=== PATIENT | female | born 1955 | race Caucasian/White ===

== ENCOUNTER → 2017-10-23 | Outpatient (POV) | payer OTHER, SELFPAY | PROVIDERS: Visit Provider Podiatrist ==

== ENCOUNTER → 2017-12-11 08:28 | Outpatient (CLI) | payer OTHER, SELFPAY ==
--- NOTE | 2017-12-11 08:31 | MR_ITS ---
MR foot LT wo con HISTORY: Left foot pain laterally and posteriorly radiating up the ankle ORDERING PHYSICIAN: Brea Juarez DPM PATIENT AGE: 62 years COMPARISON: None TECHNIQUE: Standard multiplanar multiecho sequences are performed without contrast. FINDINGS: The exam is NOT tailored to either the forefoot or hindfoot. Resolution is therefore somewhat limited. There is mild pes planus. The tendons about the ankle and feet and ligaments are grossly unremarkable. No obvious fracture or dislocation. No bone bruise apparent. There is a small amount fluid in the ankle joint. No destructive process. There is a small calcaneal spur with no evidence of abnormal signal intensity at the calcaneal spur or plantar fascia. IMPRESSION: Small amount of fluid in the ankle joint otherwise unremarkable MRI of the foot. Somewhat limited exam as it is not tailored to the hind, mid, or forefoot. Study may be repeated at no additional charge and tailored to the appropriate anatomical region if clinically warranted.
== END ==
PROVIDERS: PCP Family Medicine; Visit Provider Podiatrist
DX: M21.42 Flat foot [pes planus] (acquired), left foot (principal)
CPT/HCPCS: 73718

== ENCOUNTER → 2018-10-15 11:05 | Outpatient (CLI) | payer OTHER, SELFPAY ==
--- NOTE | 2018-10-15 11:10 | XR_ITS ---
XR knee LT 3V HISTORY: ITS.REASON: ACUTE LT KNEE PAIN ORDERING PHYSICIAN: Jaquelin Peña PATIENT AGE: 63 years COMPARISON: None FINDINGS: No fracture or dislocation. No lytic or blastic change. Normal mineralization. No significant arthritic changes evident. No other significant findings IMPRESSION: Negative Knee
== END ==
PROVIDERS: PCP Nurse Practitioner; Visit Provider Nurse Practitioner
DX: M25.562 Pain in left knee (principal)
CPT/HCPCS: 73562

== ENCOUNTER 2021-04-29 03:58 | Inpatient (IN) | payer MEDICARE, BC, SELFPAY ==
[2021-04-29] VITALS (32 sets, daily range): BP systolic 72–124; BP diastolic 40–67; PULSE 50–90; RESP 15–24; TEMP 36.4–37.2; O2SAT 92–100; BMI 25.8; BMI 27.4
--- NOTE | 2021-04-29 | IR_ITS ---
APPROVED REPORT Patient Location: Emergent Rectification Printer: JUAN FRANCISCO Noel RT (R) PROCEDURES Left heart catheterization Left ventriculogram Selective coronary angiogram Drug-eluting stent deployment to the ostial proximal mid dominant right coronary artery Drug-eluting stent deployment to the ostial left main artery INDICATION Acute ST elevation inferior lateral posterior and right ventricular infarction, Coronary artery disease Informed consent was obtained prior to the procedure. COMPLICATIONS None Estimated Blood Loss: Less than 10 mls TECHNIQUE 1% lidocaine used anesthetize right groin the right femoral artery was accessed via the Salinger technique and a 6 Finnish sheath was placed in the right femoral artery. Therapeutic heparin was administered in the ER. A JR4 guide catheter was used to intubate the right coronary artery and a Choice PT extra-support wire was placed distally. A 3.5 mm x 38 mm resolute [place] stent was deployed at 20 raymond reducing the stenosis. At the infarct site there stent was under deployed therefore 3.75 x 12 mm noncompliant balloon was deployed on multiple occasions at 24 raymond to post dilate. Prior to the post dilatation with a 3.75 mm balloon a 3.5 x 26 mm resolute [place] stent was placed in the proximal to ostial segment and proximal to the first stent yet still overlapping the stent and deployed at 20 raymond. This balloon was advanced and deployed at 24 raymond to post dilate. After this did not fully deployed the stent then the 3.75 mm balloon was deployed as described above. The JR4 catheter was used to perform left heart catheterization left ventriculogram. After achieving MAXWELL-3 flow at the end of the procedure the apparatus was removed and a 5 Finnish JL4 catheter was used to perform left coronary angiography. A severe ostial stenosis was identified. A 6 Finnish JL4 guide catheter was then placed in the left coronary cusp and the wire placed distally in the LAD. A 3.5 x 8 mm resolute [place] stent was deployed at 24 raymond reducing the ostial stenosis to 0%. The 5 Finnish sheath cause severe dampening when inserted into the left main artery however the JL 4 6 Finnish guide catheter could not fit into the left main into the stenosis. At the end of the stent deployment the 6 Finnish JL4 easily inserted into the left main artery with no dampening and excellent flow. MAXWELL-3 flow was present before and after the procedure. At the end of the procedure the apparatus was removed the groin was reprepped closure changed sheath was removed and hemostasis was achieved using Perclose device patient was transferred to the postop holding in stable condition. The right coronary artery started with MAXWELL I flow and ended with MAXWELL-3 flow ANGIOGRAPHIC RESULTS The left main artery Has an ostial 70% stenosis The left anterior descending artery Has proximal 10% stenosis The circumflex artery Is nondominant and has an ostial 10 to 20% stenosis with remaining vessel widely patent The right coronary artery Is a large dominant vessel and has an ostial proximal 40% stenosis with an 80 and then greater than 99% stenosis. The COLLINS ventriculogram reveals Mildly reduced at 45% with inferior hypokinesis The left ventricular end-diastolic pressure [address] elevation myocardial infarction of the proximal to mid dominant right coronary Successful stenting of the ostial proximal mid dominant right coronary critical disease reduced to 0% with 2 contiguous drug-eluting stents as described above Severe stenosis of the ostial left main artery Successful stenting the ostial left main artery severe disease reduced to 0% with 1 drug-eluting stent Mildly reduced ejection fraction with regiona
--- NOTE | 2021-04-29 04:03 | ECG_ITS ---
APPROVED REPORT Exam: Resting ECG HR:51 bpm ECG Measurements Heart Rate 51 AXES SD 196 P 43 QRSd 84 QRS 60 QT 434 T 105 QTc [address] elevation, consider inferolateral injury or acute infarct ACUTE SC Consider right ventricular involvement in acute inferior infarct Abnormal ECG Electronically signed by : Krishna Corbin, 04/30/2021 08:21:35
--- NOTE | 2021-04-29 04:12 | XR_ITS ---
PROCEDURE INFORMATION: Exam: XR Chest Exam date and time: 04/29/2021 4:12 AM Age: 65 years old Clinical indication: Pain; Chest pressure; Patient HX: Stemi alert; Additional info: Cp TECHNIQUE: Imaging protocol: XR of the chest. Views: 1 view. COMPARISON: No relevant prior studies available. FINDINGS: Lungs: Unremarkable. No consolidation. Pleural spaces: Unremarkable. No pleural effusion. No pneumothorax. Heart/Mediastinum: Unremarkable. No cardiomegaly. Bones/joints: Unremarkable. IMPRESSION: No acute findings.
[2021-04-29 04:26] LABS: Basophils # 0.2 K/mm3 (0-0.2); Eosinophils # 0.1 K/mm3 (0.0-0.4); Eosinophils % 0.6 % (0.1-12.0); Hematocrit 48.2 % (37.0-47.0); Hemoglobin 16.3 g/dL (12.2-16.2); Lymphocytes # 5.6 K/mm3 (0.7-4.5); Lymphocytes % 39.2 % (10-50); Mean Corpuscular HGB Conc 33.8 g/dL (31.8-35.4); Mean Corpuscular Volume 94.5 fl (81-99); Mean Platelet Volume 10.3 fl (7.4-10.4); Monocytes # 0.6 K/mm3 (0.1-1.0); Monocytes % 4.4 % (1.7-9.3); Neutrophils # 7.8 K/mm3 (1.8-7.8); Neutrophils % 54.8 % (37.0-80.0); Platelet Count 282 K/mm3 (142-424); Red Cell Distribution Width 13.4 % (11.5-17.5); White Blood Count 14.2 K/mm3 (4.8-10.8)
[2021-04-29 04:30] LABS: Alanine Aminotransferase 53 U/L (12-78); Albumin Level 4.9 g/dl (3.5-5.0); Alkaline Phosphatase 197 U/L (38-126); Anion Gap 14.5 mEq/L (5-15); Aspartate Amino Transferase 40 U/L (14-36); Bilirubin,Direct 0.4 mg/dl (0.0-0.4); Bilirubin,Indirect 0.2 mg/dL (0.0-0.9); Bilirubin,Total 0.6 mg/dl (0.2-1.3); Bilirubin,Unconjugated 0.1 mg/dL (0.0-1.1); Blood Urea Nitrogen 16 mg/dl (7-17); Calcium 10.5 mg/dl (8.4-10.2); Carbon Dioxide 20 mmol/L (22.0-30.0); Chloride 109 mmol/L (98-107); Creatinine Clearance Estimated 68 mL/min (50-200); Estimated Glomerular Filt Rate 72 ml/min (>60); GFR (African American) 87 ML/MIN (>60); Glucose 124 mg/dl (74-100); Potassium 3.5 mmoL/L (3.5-5.1); Sodium 140 mmol/L (136-145); Total Protein,Serum 8.5 g/dl (6.3-8.2)
--- NOTE | 2021-04-29 04:35 | HMH.EDCP ---
ED Disposition Clinical Impression: ST elevation myocardial infarction (STEMI) Qualifiers: Involved coronary artery: unspecified coronary artery Qualified Code(s): I21.3 - ST elevation (STEMI) myocardial infarction of unspecified site Disposition: Admitted As Inpatient Condition on Discharge: Serious - Critical Care Critical Care Time: No Attestation: On 04/29/21, the high probability of a clinically significant, sudden or life threatening deterioration of the following system(s) required my full and direct attention, intervention and personal management. The time I documented below is in addition to time spent performing reported procedures but includes the following listed in this critical care notation. Medical Decision Making - Medical Records Medical records reviewed: Yes: I reviewed the patient's medical records. - Bay Inquiry Pt receiving controlled substance: No Vital Signs: 04/29/21 04:24 04/29/21 04:32 04/29/21 04:39 Temperature 97.6 F Temperature Source Oral Pulse Rate 51 L 53 L Pulse Rate [Apical] Pulse Rate [Bilateral Apical] Pulse Rate [Right] 56 L Respiratory Rate 18 22 Blood Pressure 100/54 L 96/56 L Blood Pressure [Right Arm] 99/62 L Blood Pressure Mean [Right Arm] 74 Blood Pressure Source Blood Pressure Source [Right Arm] Blood Pressure Position Blood Pressure Position [Right Arm] 02 Sat by Pulse Oximetry 100 Oxygen Delivery Method Room Air Oxygen Flow Rate (LPM) 04/29/21 04:46 04/29/21 05:57 04/29/21 06:00 Temperature 97.6 F 98.2 F Temperature Source Temporal Artery Scan Pulse Rate 75 75 Pulse Rate [Apical] Pulse Rate [Bilateral Apical] 71 64 Pulse Rate [Right] Respiratory Rate 24 16 18 Blood Pressure 104/56 L Blood Pressure [Right Arm] 104/40 L 85/59 L Blood Pressure Mean [Right Arm] 61 67 Blood Pressure Source Automatic Cuff Blood Pressure Source [Right Arm] Automatic Cuff Automatic Cuff Blood Pressure Position Supine Blood Pressure Position [Right Arm] Supine Supine 02 Sat by Pulse Oximetry 94 L 96 Oxygen Delivery Method Nasal Cannula Room Air Nasal Cannula Oxygen Flow Rate (LPM) 2 2 04/29/21 06:05 04/29/21 06:10 04/29/21 06:15 Temperature Temperature Source Pulse Rate Pulse Rate [Apical] Pulse Rate [Bilateral Apical] Pulse Rate [Right] 69 84 84 Respiratory Rate 18 18 18 Blood Pressure Blood Pressure [Right Arm] 96/49 L 91/66 L 91/66 L Blood Pressure Mean [Right Arm] 64 74 74 Blood Pressure Source Blood Pressure Source [Right Arm] Automatic Cuff Automatic Cuff Automatic Cuff Blood Pressure Position Blood Pressure Position [Right Arm] Supine Supine Supine 02 Sat by Pulse Oximetry 96 96 96 Oxygen Delivery Method Room Air Room Air Room Air Oxygen Flow Rate (LPM) 04/29/21 06:22 04/29/21 06:30 04/29/21 06:45 Temperature 98.1 F Temperature Source Oral Pulse Rate 90 Pulse Rate [Apical] Pulse Rate [Bilateral Apical] Pulse Rate [Right] 54 L 57 L Respiratory Rate 18 18 Blood Pressure Blood Pressure [Right Arm] 87/50 L 83/62 L Blood Pressure Mean [Right Arm] 62 69 Blood Pressure Source Blood Pressure Source [Right Arm] Automatic Cuff Automatic Cuff Blood Pressure Position Blood Pressure Position [Right Arm] Supine Supine 02 Sat by Pulse Oximetry 96 98 Oxygen Delivery Method Nasal Cannula Nasal Cannula Oxygen Flow Rate (LPM) 2 2 04/29/21 07:00 04/29/21 07:30 04/29/21 07:45 Temperature 98.4 F Temperature Source Oral Pulse Rate Pulse Rate [Apical] 52 L 50 L Pulse Rate [Bilateral Apical] Pulse Rate [Right] 54 L Respiratory Rate 16 18 16 Blood Pressure Blood Pressure [Right Arm] 91/56 L 83/55 L 83/49 L Blood Pressure Mean [Right Arm] 67 64 60 Blood Pressure Source Blood Pressure Source [Right Arm] Automatic Cuff Automatic Cuff Automatic Cuff Blood Pressure Position Blood Pressure Position [Right Arm] Supine Supine Supine
[2021-04-29 04:42] LABS: Troponin I 0.02 ng/ml (0.00-0.034)
--- NOTE | 2021-04-29 06:13 | PC.NURSE ---
patient up to floor from radiographer cardiac catheterization via stretcher.
--- NOTE | 2021-04-29 06:55 | HMH.HP ---
*Admission Date: 04/29/21 *Chief complaint: Chest pain *History of present illness: 65-year-old female presented to the emergency department after being awoken this morning with midsternal chest pain with associated nausea, diaphoresis, shortness of breath and at least one episode of vomiting. In the emergency department EKG was consistent with acute ST elevation PR. Dr. Lemus was contacted and patient was immediately taken to the Program Director/Air Personality with findings as follows: IMPRESSION Acute ST elevation myocardial infarction of the proximal to mid dominant right coronary Successful stenting of the ostial proximal mid dominant right coronary critical disease reduced to 0% with 2 contiguous drug-eluting stents as described above Severe stenosis of the ostial left main artery Successful stenting the ostial left main artery severe disease reduced to 0% with 1 drug-eluting stent Mildly reduced ejection fraction with regional wall motion abnormality Normal LVEDP PLAN 1. Brilinta 90 twice daily plus aspirin 81 mg daily 2. LDL less than 55 to be achieved with high intensity statin 3. Start LACIE inhibitors once hemodynamically stable followed by carvedilol once patient tolerates LACIE inhibitors 4. Echocardiogram in the morning 5. Monitoring on telemetry for at least 48 hours 6. Avoidance of tobacco products 7. Risk factor modification Patient is now been admitted to the [facility] floor for 48 hours of telemetry monitoring. She reports resolution of chest pain and feeling significantly better. Patient's cardiac risk factors are chronic cigarette use and early family history of coronary artery disease with her father having an PR at age 44 (he was also a smoker) [facility] History I have reviewed the patient's past medical history: Yes Medical History: Denies:: Aneurysm, Asthma, Cancer, Congestive Heart Failure, Chronic Obstructive Pulmonary Disease (COPD), Diabetes Mellitus Type 1, Diabetes Mellitus Type 2, Hyperlipidemia, Hypertension *Have you ever received a pneumonia vaccine?: No *Have you received a flu vaccine this season?: No Other Medical History: Reports: Arthritis. Denies: Fibromyalgia, Hypothyroidism, Thyroid Disease Other Surgeries: Yes: Tubal Ligation, Other (Gallbladder) Amputation: No Fractures: No - *Social History Smoking Status: Current every day smoker Tobacco Type: cigarettes # Packs/Day (cigarettes): 1 Alcohol Intake: never Alcohol Intake Frequency:: 0-2 drinks per day *Occupational Status:: unemployed *Travel in the last 8 weeks: None Family Hx:: Heart Attack, Cancer Review of Systems - Constitutional Denies body ache(s), Denies chills, Denies night sweats - Eyes Denies blurry vision - ENT Denies change in voice - *Cardiovascular Reports chest pain at rest - *Respiratory Denies change in phlegm color, Denies chest congestion, Denies cough - *Gastrointestinal Denies belching - *Genitourinary Denies painful urination - *Musculoskeletal Reports joint pain - Integumentary/Breasts Denies bleeding lesions, Denies change in hair - *Neurologic Denies abnormal hearing, Denies abnormal movements, Denies seizure-like activity - Psychiatric Denies lack of enjoyment, Denies anxiety - Endocrine Denies excessive sweating - Hematologic/Lymphatic Denies easy bruising Meds Home Medications Medication Instructions Recorded Confirmed Type meloxicam 7.5 mg tablet 2.5 mg PO ONCE 30 Days #30 tab 11/30/17 04/29/21 History Allergies Allergy/AdvReac Type Severity Reaction Status Date / Time rosuvastatin [From Crestor] Allergy Verified 04/29/21 04:26 Exam Vital signs and Labs for Last 24 Hours: Temp Pulse Resp BP Pulse Ox 98.2 F 90 18 91/66 L 96 04/29/21 05:57 04/29/21 06:22 04/29/21 06:15 04/29/21 06:15 04/29/21 06:15 Laboratory Results - last 24 hr 04/29/21 04:10: WBC 14.2 H, RBC 5.10, Hgb 16.3 H, Hct 48.2 H, MCV 94.5, MCH 32.0 H, MCHC 33.8, RDW 13.4, Plt Count 282,
--- NOTE | 2021-04-29 07:23 | P.CONPHA_ITS ---
[facility] Pharmacy VTE Monitoring - Patient Demographics Admission date: 04/29/21 Report Date: 04/29/21 Time: 07:23 Allergies/Adverse Reactions: Patient Allergies rosuvastatin [From Crestor] Allergy (Verified 04/29/21 04:26) Height: 1.73 m Weight: 82.1 kg Patient Problems: Current Active Problems ST elevation myocardial infarction (STEMI) (Acute) - VTE Risk Labs: VTE Related Lab Results Hgb 16.3 g/dL (12.2-16.2) H 04/29/21 04:10 Hct 48.2 % (37.0-47.0) H 04/29/21 04:10 Plt Count 282 K/mm3 (142-424) 04/29/21 04:10 BUN 16 mg/dl (7-17) 04/29/21 04:10 Creatinine 0.80 mg/dl (0.52-1.04) 04/29/21 04:10 Estimated Creat Clear 68 mL/min (50-200) 04/29/21 04:10 VTE Score: 3 VTE Risk Level: Low Risk - Prophylaxis VTE Prophylaxis Ordered?: Yes Types of VTE Prophylaxis: TEDS Knee High Location of Applied Device: Bilateral Lower Extremeties
--- NOTE | 2021-04-29 07:23 | HMH.PHAINT ---
MEDICATION RECONCILIATION COMPLETED ON PATIENT USING EXTERNAL FILL HISTORY FROM PHARMACY. -NETTA CARVER, CHARLOTTED
[2021-04-29 07:32] LABS: Cholesterol 281 mg/dl (140-200); Triglycerides 133 mg/dl (30-150); VLDL Cholesterol 27 mg/dL (0-40)
[2021-04-29 07:33] LABS: Chol/HDL Ratio 6.1 (1-3.5); HDL Cholesterol 46 mg/dl (40-60)
[2021-04-29 07:43] LABS: Direct LDL Cholesterol 192.65 mg/dL (100-129)
[2021-04-29 07:49] LABS: Coronavirus 19, PCR Not Detected (NotDetected); Influenza A, PCR Not Detected (NotDetected)
[2021-04-29 08:30] LABS: Influenza B, PCR Not Detected (NotDetected)
--- NOTE | 2021-04-29 08:34 | PC.NURSE ---
Pt had previously been lying flat in the bed, resting off and on. Pt is currently sitting up in the bed at a 45 degree angle and eating breakfast. BP 80/44
--- NOTE | 2021-04-29 08:57 | HMH.CNCARD ---
History of Present Illness Consult date: 04/29/21 Requesting physician: Krishna Adler Consult reason: chest pain Chief complaint: STEMI History of present illness: 65-year-old female presented to [facility] to ED early this a.m. presenting as STEMI. Patient was automatically sent to the [facility] for revascularization if warranted. Since patient was returned from having left heart catheterization through access of the left groin. Patient is stable at this time. Patient is alert and oriented x3. Patient denies chest pain, tightness or pressure. Patient states for the past few days she has been having what she would describe as indigestion. Patient states the indigestion was becoming worse to where she presented to the emergency room as a STEMI. Patient states accompanying the indigestion was worsening shortness of breath. Patient denied a cough. Patient denies fever. Patient states her shortness of breath has improved. Patient is noted to be on 2 L of O2 by nasal cannula. Patient states she does smoke half a pack of cigarettes per day and has for many years. Patient has history of hyperlipidemia. Patient does have significant family history of coronary artery disease. Patient states her father had an TX at the age of 44. Left heart catheterization performed revealed successful stenting of the ostial proximal mid dominant RCA with 2 drug-eluting stents placed. Severe stenosis of the ostial left main which required 1 drug-eluting stent. EF was noted as mildly reduced with regional wall abnormality. Will obtain echocardiogram in the a.m. to assess EF. lunchroom monitor reveals sinus bradycardia with a heart rate of [address] depression noted on the monitor. Patient does remain hypotensive at this time. Patient has been given IV fluids and a fluid bolus in which blood pressure has improved slightly. Reluctant to start LACIE inhibitor's or beta-blockers at this time due to patient being hypotensive. Once blood pressure becomes stable, will add LACIE inhibitor for BP and renal function stability. Once patient is able to tolerate LACIE inhibitor's, will add beta-melissa at that time. Please continue to monitor patient status and notify cardiology of any changes in patient status. [facility]: ANGIOGRAPHIC RESULTS (04/29/21) The left main artery Has an ostial 70% stenosis The left anterior descending artery Has proximal 10% stenosis The circumflex artery Is nondominant and has an ostial 10 to 20% stenosis with remaining vessel widely patent The right coronary artery Is a large dominant vessel and has an ostial proximal 40% stenosis with an 80 and then greater than 99% stenosis. The COLLINS ventriculogram reveals Mildly reduced at 45% with inferior hypokinesis The left ventricular end-diastolic pressure [address] elevation myocardial infarction of the proximal to mid dominant right coronary Successful stenting of the ostial proximal mid dominant right coronary critical disease reduced to 0% with 2 contiguous drug-eluting stents as described above Severe stenosis of the ostial left main artery Successful stenting the ostial left main artery severe disease reduced to 0% with 1 drug-eluting stent Mildly reduced ejection fraction with regional wall motion abnormality Normal LVEDP PLAN 1. Brilinta 90 twice daily plus aspirin 81 mg daily 2. LDL less than 55 to be achieved with high intensity statin 3. Start LACIE inhibitors once hemodynamically stable followed by carvedilol once patient tolerates LACIE inhibitors 4. Echocardiogram in the morning 5. Monitoring on telemetry for at least 48 hours 6. Avoidance of tobacco products 7. Risk factor modification Discussed plan of care with Dr. Lemus. Orders received from Dr. Lemus. Patient will need to stay inpatient for 48 hours due to STEMI. Unable at this time to start LACIE inhibitor due to patient being hypotensive. Once patient becomes hemodynamically stable a
[2021-04-29 12:58] LABS: CATHL Activated Clotting Time 234 SEC (74-125)
[2021-04-29 12:59] LABS: CATHL Activated Clotting Time 255 SEC (74-125)
--- NOTE | 2021-04-29 14:27 | PC.NURSE ---
notified Delvin Walker of pt having chest pain/discomfort. states it is similar to pain from last night, not as severe though. informed by Martha Baez that pt says pain is radiating up the side of her neck. no med orders available. pt bp is 90/56 hr mid 50's no rhythm change noted on the monitor. no new orders from [facility] at this time.
--- NOTE | 2021-04-29 18:32 | PC.NURSE ---
pt states that she is having brief episodes of discomfort. pt refuses narcotics at this time, but is agreeable to tylenol if needed.
--- NOTE | 2021-04-29 21:15 | PC.NURSE ---
DSG on right groin is C/D/I. No bruising or swelling noted at site. Sinus adrian on telemetery. She denies pain, nausea, and SOA. She has been ambulating independently to the bathroom. She continues on RA. She reported that she is a patient of Dr. Tinajero and he had prescribed her a methotraxate for arthritis and she is concerned if she should still be taking the methotrexate on Thursday and Thursday.
[2021-04-30] VITALS (13 sets, daily range): BP systolic 77–104; BP diastolic 47–69; PULSE 55–80; RESP 16–24; TEMP 36.6–37.3; O2SAT 93–100; BMI 27.4
--- NOTE | 2021-04-30 03:41 | PC.NURSE ---
Manual BP obtained r/t low BP. She is asymptomatic. Staff supervised ambulation to bathroom as a fall precaution. Her gait was steady. BP after ambulating to bathroom was 96/51.
--- NOTE | 2021-04-30 07:04 | CA_ITS ---
APPROVED REPORT EXAM: Comprehensive 2D, Doppler, and color-flow Echocardiogram Engineer Exhauster: DANICA Colon, RVS Ht: 5 ft 8 in Wt: 181lbs BSA: 1.96 BP: 91/66 mmHg Indications: CAD s/p AR with 3 coroncary stents, COPD, Smoker, Reduced EF post cath, CHF Echo Enhancing Agent Comments: Poor acoustics throughout with lung impedence 2D Dimensions IVSd 0.95 cm F: 0.6-1.0 LVEF (Visual) 66.00 % PWd 0.77 cm F: 0.6 - 1.0 LA Volume 45.70 mL LVDd 4.13 cm F: 3.9 - 5.3 LA Volume Index 23.31 mL/m2 (M/F) 16-34 LVDs 2.50 cm F: 2.2 - 3.5 Left Atrium 2.84 cm F: 2.7 - 3.8 LVOT 1.68 cm (M/F) 1.5-2.5 M-Mode Dimensions LA Diam 3.15 cm (1.9-4.0) Ao Diam 2.70 cm (2.0-3.7) EPSs 0.28 cm TAPSE 2.30 (<1.7) LV Diastology E Decel Time 240.00 (160-240 msec) E/A Ratio 1.6 MED E' 12.90 (< 7 cm/sec) MED A' 6.70 cm/s E'/MED E' Ratio 6.72 (>14) LAT E' 10.70 (<10 cm/sec) LAT A' 7.40 cm/s E/LAT E' Ratio 8.10 (>14) Aortic Valve LVOT Max 77.00 (70-110 cm/s) LVOT VTI 15.07 cm AoV Peak Miguel. 135.00 (50-130 cm/s) AO Peak GR. 7.30 mmHg AO Mean GR. 3.70 (<5 mmHg) AO VTI 26.90 (18-25 cm) TIGRE (VTI) 1.24 (2.5-4.5 cm2) Mitral Valve MV E Max Miguel. 87.00 (40-130 cm/s) MV A Velocity 55.00 (40-130 cm/s) E/A Ratio 1.58 MV Decel. Time 240.00 (160-240 ms) MV PHT 70.00 ms Pulmonary Valve PV Peak Velocity 62.00 (50-150 cm/s) Tricuspid Valve TR P. Velocity 217.00 cm/s RAP Estimate 10.00 mmHg RVSP 28.80 mmHg Left Ventricle Left atrium is normal size, left ventricle is normal size, visually estimated ejection fraction 55% with no regional wall motion abnormality, diastolic parameters are within normal range. Right Ventricle Right atrium and right ventricular qualitatively mildly enlarged with normal contractility. Aortic Valve Aortic valve is minimally thickened and fibrosed, there is no aortic stenosis or aortic insufficiency. Mitral Valve Mitral valve is grossly normal, there is trace mitral regurgitation. Tricuspid Valve Tricuspid grossly normal, there is mild tricuspid regurgitation, calculated right ventricular systolic pressure is 28 mmHg. Pulmonic Valve Pulmonic valve is poorly visualized. Great Vessels Aortic root is normal size. Pericardium No significant pericardial effusion noted. Conclusion 1. Normal left ventricular size, preserved left ventricular systolic function, visually estimated ejection fraction 55% with no regional wall motion abnormality, diastolic parameters are within normal range. 2. Mildly enlarged right ventricle with normal contractility. 3. Trace mitral and mild tricuspid regurgitation, calculated right ventricular systolic pressure is 28 mmHg. 4. No significant pericardial effusion noted. Electronically signed by : Tre Moran, 04/30/2021 08:52:20
--- NOTE | 2021-04-30 07:11 | HMH.ACPN2 ---
Internal Medicine - PN: Subj *Date: 04/30/21 *Time: 07:11 Interval history: Patient has no complaints this morning. Patient did become hypotensive yesterday evening after receiving lisinopril. Patient was asymptomatic from the hypotension with systolics in the 70s. This morning she denies lightheadedness, chest pain or shortness of breath. She does feel rather stiff from laying in bed Exam Vital signs and Labs for Last 24 Hours: Temp Pulse Resp BP Pulse Ox 99.0 F 63 15 99/63 L 95 04/29/21 20:00 04/30/21 06:00 04/29/21 20:00 04/30/21 06:00 04/30/21 06:00 Laboratory Results - last 24 hr 04/29/21 03:10: Triglycerides 133, Cholesterol 281 H, LDL Cholesterol Direct 192.65 H, VLDL Cholesterol 27, HDL Cholesterol 46, Cholesterol/HDL Ratio 6.1 H 04/29/21 05:14: Activated Clotting Time 255 H* 04/29/21 05:26: Activated Clotting Time 234 H* I & O for Last 24 hours: Intake & Output 04/27/21 04/28/21 04/29/21 04/30/21 11:59 11:59 11:59 11:59 Intake Total 2120 / 2120 610 / 610 Balance 2120 / 2120 610 / 610 Weight 181 lb 180 lb 15.992 oz - Constitutional no acute distress - *Routine Respiratory Exam Present: CTA bilaterally - *Routine Cardiovascular Exam Present: RRR Assessment and Plan (1) ST elevation myocardial infarction (STEMI) Status: Acute Qualifiers: Involved coronary artery: unspecified coronary artery Qualified Code(s): I21.3 - ST elevation (STEMI) myocardial infarction of unspecified site Category: Medical Code(s): I21.3 - ST elevation (STEMI) myocardial infarction of unspecified site - Assessment and plan all Dx Assessment and Plan for all problems:: Patient is undergoing echocardiogram this morning. Continue dual antiplatelet therapy, statin and LACIE inhibitor as tolerated.
--- NOTE | 2021-04-30 09:05 | HMH.PNCARD ---
Subjective Date: 04/30/21 Time: 09:00 Principal diagnosis: STEMI Interval history: 65-year-old female had presented to [facility] with STEMI 1 day ago. Patient underwent heart catheterization which revealed successful stenting of the ostial proximal mid dominant RCA with 2 drug-eluting stents placed. Severe stenosis of the ostial left main which required 1 drug-eluting stent. EF was noted as mildly reduced with regional wall abnormality. Patient is stable at this time. Patient is alert and oriented x3. Patient denies chest pain, tightness or pressure. Patient denied a cough. Patient denies fever. Patient states her shortness of breath has improved. Patient is noted to be on 2 L of O2 by nasal cannula. classroom monitor reveals sinus bradycardia with a heart rate of [address] depression noted on the monitor. Patient does remain hypotensive at this time but is improving. Lisinopril 5 mg p.o. twice daily was initiated last evening. Patient did have episode early this a.m. with hypotension. Reluctant to start patient on carvedilol at this time due to patient remaining hypotensive. When patient BP can tolerate the LACIE inhibitor, will try to initiate carvedilol. Cath site right groin access noted with no swelling or drainage. Patient denies pain at the cath site. Echocardiogram was performed this a.m. Preliminary echocardiogram revealed EF 50 to 55% with trace of MR and TR noted. Waiting official echocardiogram results. Discussed plan of care with Dr. Lemus. Orders received from Dr. Lemus. Will decrease lisinopril 5 mg twice daily to lisinopril 2.5 mg twice daily to help stabilize blood pressure. We will hold starting carvedilol at this time due to the instability of the blood pressure. Please notify cardiology of any changes in patient status. Thank you for allowing cardiology to participate in the care of this patient. Exam Vital signs and Labs for Last 24 Hours: Temp Pulse Resp BP Pulse Ox 99.0 F 63 15 99/63 L 95 04/29/21 20:00 04/30/21 06:00 04/29/21 20:00 04/30/21 06:00 04/30/21 06:00 Laboratory Results - last 24 hr 04/29/21 05:14: Activated Clotting Time 255 H* 04/29/21 05:26: Activated Clotting Time 234 H* I & O for Last 24 hours: Intake & Output 04/27/21 04/28/21 04/29/21 04/30/21 23:59 23:59 23:59 23:59 Intake Total 2720 / 2720 Balance 2720 / 2720 Weight 181 lb 180 lb 15.992 oz - Constitutional no acute distress, average body habitus, cooperative - *Routine HEENT Exam Head: Present: normocephalic ENT: Present: mucous membranes moist - *Routine Neck Exam Present: supple, full ROM, normal carotid upstroke. Absent: JVD, carotid bruit, lymphadenopathy - *Routine Respiratory Exam Present: accessory muscle use, CTA bilaterally. Absent: wheezes, crackles - *Routine Cardiovascular Exam Present: RRR, Normal S1, Normal S2 - *Routine Abdominal Exam Present: soft, normoactive bowel sounds. Absent: distended - *Routine Extremities Exam Present: full ROM, pulses intact, normal capillary refill. Absent: edema - *Routine Skin Exam Present: intact, dry, warm - *Routine Neurological Exam Present: alert, oriented X3, moving all extremities, normal speech - Routine Psychiatric Exam Present: normal affect, normal thought process Progress Note: A&P (1) ST elevation myocardial infarction (STEMI) Status: Acute Assessment and Plan for All Diagnoses:: Plan: 1. Patient presented to the ED as STEMI. Patient underwent emergent left heart catheterization. Left heart catheterization revealed stenting to the RCA and left main. Patient was started on dual antiplatelet therapy. Brilinta and aspirin. Patient remains hypotensive at this time. Denies chest pain, tightness or pressure. Lisinopril 5 mg p.o. twice daily was initiated last evening. Patient did have an episode of hypotension earlier this a.m. Due to patien
--- NOTE | 2021-04-30 18:00 | PC.NURSE ---
SHE IS AOX4, ABLE TO MAKE NEEDS KNOWN TO STAFF, DSG REMAINS IN PLACE TO R GROIN SITE. NO DRAINAGE OR HEMATOMA NOTED, PT DENIES PAIN AND N/V/D. SHE HAS AMBULATED TO RESTROOM WITHOUT DIFFICULTY. DOES NOT REQUIRE O2 SUPPORT, LUNGS ARE CTA HAS NOT C/O CHEST PAIN, PT WAS NOTED TO HAVE ASYMPTOMATIC HYPOTENSION EARLIER IN SHIFT BUT HAS SINCE IMPROVED, NO NEEDS AT THIS TIME.
[2021-05-01] VITALS: BP 110/71; PULSE 55; PULSE 77; RESP 16; TEMP 37.3; O2SAT 98
[2021-05-01 03:57] VITALS: BP 110/68; PULSE 78; RESP 16; TEMP 37.7; O2SAT 97
[2021-05-01 04:00] VITALS: PULSE 74
--- NOTE | 2021-05-01 04:02 | PC.NURSE ---
Pt is A/O x4. Pt slept well this shift. no acute changes. Room air, IV's are patent in the L/R AC's. Patient has ran a low fever whole shift at beginning of shift offered Tylenol, pt declined. At 04:00 vitals pt requested 1 Tylenol, admin per JAN. Pt dressing in R groin site is C/D/I. No drainage or hematoma present. Lung sounds CTA. Pt's declines any pain. Call light within reach, pt is able to make needs known to staff. No concerns at this time.
[2021-05-01 05:16] VITALS: BMI 27.1
--- NOTE | 2021-05-01 07:10 | HMH.ACPN2 ---
Internal Medicine - PN: Subj *Date: 05/01/21 *Time: 07:10 Interval history: Patient reports feeling hot and cold all night. Nursing staff reports low-grade elevation in temperature to 99 9. Patient denies specific symptoms however. She has not had any shortness of breath especially with ambulation. She has had some urinary frequency which she claims is not unusual. She denies dysuria. Exam Vital signs and Labs for Last 24 Hours: Temp Pulse Resp BP Pulse Ox 99.9 F H 74 16 110/68 97 05/01/21 03:57 05/01/21 04:00 05/01/21 03:57 05/01/21 03:57 05/01/21 03:57 I & O for Last 24 hours: Intake & Output 04/28/21 04/29/21 04/30/21 05/01/21 11:59 11:59 11:59 11:59 Intake Total 2120 / 2120 1090 / 1090 600 / 600 Output Total 2 / 2 3 / 3 Balance 2120 / 2120 1088 / 1088 597 / 597 Weight 181 lb 180 lb 15.992 oz 179 lb 8 oz Narrative: Patient looks comfortable. Oropharynx is moist and clear. Neck is supple. Lungs have basilar rales that clear with deep breathing consistent with atelectasis. Heart has a regular rate and rhythm. Abdomen is soft. There is no suprapubic tenderness. Skin is without rashes Assessment and Plan (1) ST elevation myocardial infarction (STEMI) Status: Acute Qualifiers: Involved coronary artery: unspecified coronary artery Qualified Code(s): I21.3 - ST elevation (STEMI) myocardial infarction of unspecified site Category: Medical Code(s): I21.3 - ST elevation (STEMI) myocardial infarction of unspecified site (2) Cigarette smoker Status: Acute Category: Social Hx Code(s): F17.210 - Nicotine dependence, cigarettes, uncomplicated - Assessment and plan all Dx Assessment and Plan for all problems:: 1. Urinalysis this morning for patient's urinary frequency and low-grade elevation in temperature. Once urinalysis is resulted decision will be made whether patient would need antibiotic. 2. Plan for discharge home later in the day
[2021-05-01 07:45] LABS: Microscopic, Urine URINE MICROSCOPIC (MICROSCOPIC)
--- NOTE | 2021-05-01 07:52 | HMH.PNCARD ---
Subjective Date: 05/01/21 Time: 07:45 Principal diagnosis: STEMI Interval history: 65-year-old female had presented to [facility] with STEMI 2 days ago. Patient underwent heart catheterization which revealed successful stenting of the ostial proximal mid dominant RCA with 2 drug-eluting stents placed. Severe stenosis of the ostial left main which required 1 drug-eluting stent. Echocardiogram was performed yesterday which revealed EF 55% with no regional wall motion abnormality. Trace mitral and mild tricuspid regurgitation with noted right ventricular systolic pressure of 28 mmHg. Patient is alert and oriented x3. Patient denies chest pain, tightness or pressure. Patient denied a cough. Patient denies shortness of breath. Nursing staff stated overnight patient did have a low-grade temp. PCP is evaluating for possible causes. computer aided design designer reveals sinus rhythm. ST depression noted on the monitor. Patient does remain hypotensive at this time but is improving. Patient is currently on lisinopril 2.5 mg p.o. daily and is tolerating at this time. Reluctant to start patient on carvedilol at this time due to patient remaining hypotensive. When patient BP can tolerate the LACIE inhibitor, will try to initiate carvedilol. Cath site right groin access noted with no swelling or drainage. Patient denies pain at the cath site. Discussed plan of care with Dr. Lemus. Orders received from Dr. Lemus. Patient may be discharged today. Patient will need continued lisinopril 2.5 mg p.o. twice daily. Patient will need to continue Brilinta and baby aspirin as indicated for CAD and post stenting. No strenuous activity or heavy lifting until follow-up with cardiology. Recommend cardiac rehabilitation to increase stamina and due to postop stenting. Advised patient to stop smoking. Patient does have history of hyperlipidemia. Patient will need to continue statin therapy. Patient is to follow-up with cardiology in 1 week or sooner if signs and symptoms develop or persist. At cardiology follow-up, we will discuss starting beta-melissa at that time, if patient is tolerating LACIE inhibitor. Echo:Conclusion 1. Normal left ventricular size, preserved left ventricular systolic function, visually estimated ejection fraction 55% with no regional wall motion abnormality, diastolic parameters are within normal range. 2. Mildly enlarged right ventricle with normal contractility. 3. Trace mitral and mild tricuspid regurgitation, calculated right ventricular systolic pressure is 28 mmHg. 4. No significant pericardial effusion noted. Thank you for allowing cardiology to participate in the care of this patient. Exam Vital signs and Labs for Last 24 Hours: Temp Pulse Resp BP Pulse Ox 99.9 F H 74 16 110/68 97 05/01/21 03:57 05/01/21 04:00 05/01/21 03:57 05/01/21 03:57 05/01/21 03:57 I & O for Last 24 hours: Intake & Output 04/28/21 04/29/21 04/30/21 05/01/21 23:59 23:59 23:59 23:59 Intake Total 2720 / 2720 1090 / 1090 Output Total 5 / 5 Balance 2720 / 2720 1085 / 1085 Weight 181 lb 180 lb 15.992 oz 179 lb 8 oz - Constitutional no acute distress, average body habitus, cooperative - *Routine HEENT Exam Head: Present: normocephalic ENT: Present: mucous membranes moist - *Routine Neck Exam Present: supple, full ROM, normal carotid upstroke. Absent: JVD, carotid bruit, lymphadenopathy - *Routine Respiratory Exam Present: CTA bilaterally. Absent: wheezes, crackles - *Routine Cardiovascular Exam Present: RRR, Normal S1, Normal S2. Absent: murmur - *Routine Abdominal Exam Present: soft, normoactive bowel sounds. Absent: distended, firm - *Routine Extremities Exam Present: full ROM, pulses intact, normal capillary refill. Absent: edema - *Routine Skin Exam Present: intact, dry, warm. Absent: erythema - *Routine Neurological Exam Present: alert, oriented
[2021-05-01 07:53] LABS: Basophils # 0.1 K/mm3 (0-0.2); Basophils % 0.4 % (0.1-2.0); Eosinophils # 0.2 K/mm3 (0.0-0.4); Eosinophils % 1.3 % (0.1-12.0); Hematocrit 41.2 % (37.0-47.0); Hemoglobin 14.7 g/dL (12.2-16.2); Lymphocytes # 2.4 K/mm3 (0.7-4.5); Lymphocytes % 18.4 % (10-50); Mean Corpuscular HGB Conc 35.6 g/dL (31.8-35.4); Mean Corpuscular Hemoglobin 32.4 pg (27.0-31.2); Mean Corpuscular Volume 91.1 fl (81-99); Mean Platelet Volume 9.8 fl (7.4-10.4); Monocytes # 0.4 K/mm3 (0.1-1.0); Monocytes % 3.2 % (1.7-9.3); Neutrophils # 9.9 K/mm3 (1.8-7.8); Neutrophils % 76.7 % (37.0-80.0); Platelet Count 193 K/mm3 (142-424); Red Blood Count 4.52 M/mm3 (4.20-5.40); Red Cell Distribution Width 13.7 % (11.5-17.5)
[2021-05-01 08:00] VITALS: BP 100/58; PULSE 72; PULSE 77; RESP 18; TEMP 36.7; O2SAT 95
[2021-05-01 08:07] LABS: Appearance,Urine CLEAR (Clear); Bilirubin,Urine Negative (Negative); Blood, Urine Negative (Negative); Color,Urine YELLOW (Yellow); Glucose,Urine (UA) Negative (Negative); Ketones,Urine Negative (Negative); Leukocyte Esterase,Urine Negative (Negative); Nitrate,Urine Negative (Negative); PH,Urine 6.5 (5.0-8.5); Protein,Urine Negative (Negative); Urobilinogen,Urine 0.2 EU/dl (0.2)
[2021-05-01 08:16] LABS: Troponin I 3.32 ng/ml (0.00-0.034)
[2021-05-01 08:19] LABS: Bacteria,Urine Trace /lpf; WBC,Urine Occasional #/hpf (0-3)
--- NOTE | 2021-05-01 08:51 | XR_ITS ---
PROCEDURE: XR CHEST 2V CLINICAL HISTORY: elevated wbc COMPARISON: CR XR CHEST PORTABLE from 04/29/2021 FINDINGS: The cardiomediastinal silhouette and pulmonary vascularity are within normal limits. The lungs are clear without infiltrates, suspicious nodules, or pleural effusions. No acute bony abnormalities. IMPRESSION: No acute findings. Dictated by: Yong Stephenson MD 05/01/2021 09:12 Yong Stephenson MD in OV 05/01/2021 09:12
--- NOTE | 2021-05-14 14:45 | HMH.DCSUM ---
General - General Admission date:: 04/29/21 Discharge date: 05/01/21 HPI HPI: 65-year-old female presented to the emergency department after being awoken this morning with midsternal chest pain with associated nausea, diaphoresis, shortness of breath and at least one episode of vomiting. In the emergency department EKG was consistent with acute ST elevation [place]. Dr. Lemus was contacted and patient was immediately taken to the English Professor with findings as follows: IMPRESSION Acute ST elevation myocardial infarction of the proximal to mid dominant right coronary Successful stenting of the ostial proximal mid dominant right coronary critical disease reduced to 0% with 2 contiguous drug-eluting stents as described above Severe stenosis of the ostial left main artery Successful stenting the ostial left main artery severe disease reduced to 0% with 1 drug-eluting stent Mildly reduced ejection fraction with regional wall motion abnormality Normal LVEDP PLAN 1. Brilinta 90 twice daily plus aspirin 81 mg daily 2. LDL less than 55 to be achieved with high intensity statin 3. Start LACIE inhibitors once hemodynamically stable followed by carvedilol once patient tolerates LACIE inhibitors 4. Echocardiogram in the morning 5. Monitoring on telemetry for at least 48 hours 6. Avoidance of tobacco products 7. Risk factor modification Patient is now been admitted to the [facility] floor for 48 hours of telemetry monitoring. She reports resolution of chest pain and feeling significantly better. Patient's cardiac risk factors are chronic cigarette use and early family history of coronary artery disease with her father having an WV at age 44 (he was also a smoker) Hospital Course Hospital Course: Patient was admitted for 48 hours after intervention for STEMI. Patient blood pressure was low prohibiting use of standard of care meds post [place]. There were no arrhythmias. Patient was able to ambulate independently. After 48 hours of observation patient was discharged home Objective Vital signs: Temp Pulse Resp BP Pulse Ox 98.1 F 77 18 100/58 L 95 05/01/21 08:00 05/01/21 08:00 05/01/21 08:00 05/01/21 08:00 05/01/21 08:00 DS: Diagnosis - Discharge Diagnosis (1) ST elevation myocardial infarction (STEMI) Status: Acute (2) Cigarette smoker Status: Acute Discharge Plan - Patient Discharge Instructions ACTIVITY: Continue current activity DIET: continue same diet Patient Instructions: DI for Heart Attack, Tips to Help You Stop Smoking, DI for Cardiac Catheterization, DI for Surgical Site Infection, Quitting Smoking After a Heart Attack, How to Quit Smoking - Follow up Plan Follow up with: Daya Tinajero MD [Primary Care Provider] - 05/08/21 1:45 pm Pierre Lemus MD [Staff Physician] - 05/08/21 10:00 am Disposition: Home, Self-Care Condition at discharge:: Improved Home Medications: Home Medications Medication Instructions Recorded Confirmed Type Aspirin [Aspirin 81mg EC Tab] 81 mg PO DAILY #30 tablet. 05/01/21 05/08/21 Rx lisinopriL [Zestril 5mg 5 mg PO BID #60 tab 05/01/21 05/08/21 Rx Tablet] clopidogrel 75 mg tablet 75 mg PO DAILY #30 tab 05/08/21 05/08/21 Rx Prescriptions/Medication Reconciliation: New Aspirin [Aspirin 81mg EC Tab] 81 mg PO DAILY #30 tablet. lisinopriL [Zestril 5mg Tablet] 5 mg PO BID #60 tab No Action clopidogrel 75 mg tablet 75 mg PO DAILY #30 tab - Problem Reconciliation Problems Reviewed?: Yes
== END 2021-05-01 11:45 | disposition home or self-care (01) | DRG 247 ==
LOC: ER 04:16 → 2ND 04:44 → ER 10:26 → CATHLAB 10:27 → 2ND 10:38
PROVIDERS: Internal Medicine; Admitting Provider Emergency Medicine; Emergency Provider Emergency Medicine; PCP Family Medicine; Visit Provider Family Medicine
PROC: 027136Z Dilation of Coronary Artery, Two Arteries with Three Drug-eluting Intraluminal Devices, Percutaneous Approach (ICD-10-PCS; principal; 2021-04-29 04:30)
DX: I21.11 ST elevation (STEMI) myocardial infarction involving right coronary artery (principal); I25.10 Atherosclerotic heart disease of native coronary artery without angina pectoris; F17.210 Nicotine dependence, cigarettes, uncomplicated; Z82.41 Family history of sudden cardiac death; Z88.8 Allergy status to other drugs, medicaments and biological substances; E78.5 Hyperlipidemia, unspecified; I10 Essential (primary) hypertension; Z71.6 Tobacco abuse counseling
CPT/HCPCS: 36415; 71045; 71046; 80048; 80061; 80076; 81001; 84484; 85025; 85347; 92928; 92941; 93005; 93306; 93458; 96365; 96375; 96376; 99152; 99153; 99284; C1725; C1760; C1769; C1876; C9600; C9606; J1644; Q9967; U0003

== ENCOUNTER → 2021-05-08 09:36 | Outpatient (CLI) | payer MEDICARE, BC, SELFPAY ==
[2021-05-08 09:52] LABS: Hematocrit 46.3 % (37.0-47.0); Hemoglobin 15.9 g/dL (12.2-16.2)
[2021-05-08 10:03] LABS: Blood Urea Nitrogen 14 mg/dl (7-17); Estimated Glomerular Filt Rate 84 ml/min (>60); GFR (African American) 102 ML/MIN (>60)
[2021-05-08 10:49] LABS: C-Reactive Protein 2.6 mg/L (0-4)
[2021-05-08 15:05] LABS: Erythrocyte Sedimentation Rate 20 mm/hr (0-30)
== END ==
PROVIDERS: Nurse Practitioner Family; Visit Provider Internal Medicine
DX: F17.200 Nicotine dependence, unspecified, uncomplicated (principal); I21.3 ST elevation (STEMI) myocardial infarction of unspecified site; I25.118 Atherosclerotic heart disease of native coronary artery with other forms of angina pectoris; R06.00 Dyspnea, unspecified; R07.89 Other chest pain
CPT/HCPCS: 36415; 82565; 84520; 85014; 85018; 85651; 86140

== ENCOUNTER → 2021-05-13 14:17 | Outpatient (CLI) | payer MEDICARE, BC, SELFPAY ==
--- NOTE | 2021-05-13 14:19 | US_ITS ---
APPROVED REPORT Exam Type: Ankle to Brachial Index Tattoo Artist: CRISPIN/PURVI Indications History of Smoking CAD Recent cardiac stenting Pressures/Indices Right Indices Left Indices Brachial 119.00 mmHg Brachial 115.00 mmHg Low Thigh 137.00 mmHg 1.15 Low Thigh 133.00 mmHg 1.12 Calf 125.00 mmHg 1.05 Calf 123.00 mmHg 1.03 Ankle(PT) 109.00 mmHg 0.92 Ankle(PT) 112.00 mmHg 0.94 Ankle(DP) 109.00 mmHg 0.92 Ankle(DP) 123.00 mmHg 1.03 Digit 78.00 mmHg 0.66 Digit 81.00 mmHg 0.68 Findings RT MIKE=0.92 LT MIKE=1.03 RT TPI=0.66 LT TPI=0.68 Conclusion RT MIKE=0.92 LT MIKE=1.03 RT TPI=0.66 LT TPI=0.68 Normal appearing resting noninvasive lower extremity arterial study. Electronically signed by : Joe Ruiz MD 05/13/2021 17:09:13
== END ==
PROVIDERS: PCP Internal Medicine Adolescent Medicine; Visit Provider Nurse Practitioner Family
DX: I70.213 Atherosclerosis of native arteries of extremities with intermittent claudication, bilateral legs (principal)
CPT/HCPCS: 93923

== ENCOUNTER → 2021-05-14 16:27 | Outpatient (CLI) | payer MEDICARE, BC, SELFPAY ==
[2021-05-14 19:23] LABS: Hemoglobin A1C 5.4 % (4.0-6.0)
== END ==
PROVIDERS: Visit Provider Nurse Practitioner Family
DX: R73.9 Hyperglycemia, unspecified (principal)
CPT/HCPCS: 36415; 83036

== ENCOUNTER 2021-05-23 09:58 | Outpatient (RCR) | payer MEDICARE, BC, SELFPAY | END 2021-09-25 10:36 | disposition home or self-care (01) | LOC: PT 09:58 | PROVIDERS: Visit Provider Internal Medicine | DX: Z95.5 Presence of coronary angioplasty implant and graft (principal); I25.10 Atherosclerotic heart disease of native coronary artery without angina pectoris | CPT/HCPCS: 93798 ==

== ENCOUNTER → 2021-08-16 07:56 | Outpatient (CLI) | payer MEDICARE, BC, SELFPAY ==
[2021-08-16 09:08] LABS: Alanine Aminotransferase 24 U/L (12-78); Albumin Level 4.3 g/dl (3.5-5.0); Alkaline Phosphatase 141 U/L (38-126); Aspartate Amino Transferase 28 U/L (14-36); Bilirubin,Direct 0.2 mg/dl (0.0-0.4); Bilirubin,Indirect 0.3 mg/dL (0.0-0.9); Bilirubin,Total 0.5 mg/dl (0.2-1.3); Bilirubin,Unconjugated 0.4 mg/dL (0.0-1.1); Chol/HDL Ratio 5.5 (1-3.5); Cholesterol 276 mg/dl (140-200); HDL Cholesterol 50 mg/dl (40-60); Total Protein,Serum 7.6 g/dl (6.3-8.2); Triglycerides 175 mg/dl (30-150); VLDL Cholesterol 35 mg/dL (0-40)
[2021-08-16 09:20] LABS: Direct LDL Cholesterol 179.16 mg/dL (100-129)
== END ==
PROVIDERS: Visit Provider Physician Assistant
DX: I11.9 Hypertensive heart disease without heart failure (principal); E11.9 Type 2 diabetes mellitus without complications
CPT/HCPCS: 36415; 80061; 80076

== ENCOUNTER → 2021-10-24 06:14 | Outpatient (CLI) | payer MEDICARE, BC, SELFPAY ==
--- NOTE | 2021-10-24 06:15 | NM_ITS ---
APPROVED REPORT Exam: Nuclear Stress Test Indication: chest pain..short of breath..fatigue Patient Location: Outpatient Stress Tech: Xochitl Baum [place] Tech:Teressa Kaufman JUAN FRANCISCO RT(R)(N) Ht: 5 ft 8 in Wt: 185 lbs Bra Size: 40b HR: 79 bpm BP: 129/83 mmHg BSA: 1.98 m2 BMI: 28.1 History: chest pain..short of breath..fatigue Procedure: Patient received a 0.4 mg of intravenous Lexiscan, resting heart rate 79 bpm, resting blood pressure 129/83 mmHg, with Lexiscan maximum heart rate achived was 113 bpm which is Less than 85 % of the maximum predicted heart rate and blood pressure was 149/89 mmHg. With Lexiscan, patient denied any complaint of chest pain. Electrocardiogram Resting electrocardiogram showed sinus rhythm, with Lexiscan there is less than 1.[address] segment depression noted from the baseline EKG. The EKG portion of the Lexiscan is nondiagnostic. Cardiac Stress and Resting SPECT Images: Cardiac Stress and Resting SPECT images were obtained using technetium 99m Myoview 30.0 mCi stress and 10.24 mCi at rest. Gated SPECT for analysis of segmental wall motion and calculation of the ejection fraction also done. Prone images were also obtained. Cardiac stress and resting SPECT images show uniform myocardial activity without segmental perfusion abnormality, computer derived ejection fraction is over 65% with no regional wall motion abnormality, right ventricle is normal size and contractility. The transient ischemic dilatation reported in the study appears to be inaccurate Conclusion: 1. The EKG portion of the Lexiscan Myoview is nondiagnostic. 2. No scintigraphic evidence of reversible ischemia seen, computer derived ejection fraction is over 65% with no regional wall motion abnormality, right ventricle is normal size and contractility. The transient ischemic dilatation reported in the study appears to be inaccurate. 3. Likely normal Lexiscan Myoview study. Electronically signed by : Tre Moran MD 10/25/2021 09:13:09
--- NOTE | 2021-10-24 06:15 | CA_ITS ---
APPROVED REPORT Exam: Pharmacologic Technologist: Xochitl Baum, Ht: 5 ft 9 in Wt: 188 lbs BSA: 2.01 m2 HR: 79 bpm BP: 129/83 mmHg Rhythm: NSR, LOW VOLTAGE QRS, INFERIOR I WAVE ABNS Medical History Medical History: HTN, , Hyperlipidemia Medications: Aspirin,,,,, Plavix,,,,, Toprol XL,,,,, Furosemide,,,,, Allergies: ROSUVASTATIN, ATORVASTATIN, PITAVASTIN, EVOLOCUMAB Cardiac Risk Factors: HTN, Hyperlipidemia, FHX of CAD, Smoking Stress Test Details Test: LEXISCAN Reversal agent Aminophyline 100.0 mg, given intravenously for dyspnea. HR Resting HR: 85 bpm Max Heart Rate (APMHR): 154.367784 bpm Max HR Achieved: 118 bpm Target HR (85% APMHR): 130.130460 bpm % of APMHR: 76.62 Recovery HR: 83 bpm BP Resting BP: 129/83 mmHg Max BP: 149/89 mmHg Recovery BP: 147.0/92.0 mmHg ECG Resting ECG: NSR, LOW VOLTAGE QRS, INFERIOR I WAVE ABNS Clinical Exercise duration: 04:01 min Highest Stage Achieved: Exercise capacity: 1.0 METs Stress ECG Conclusion PT HAD SOA, MALAISE, AND HAD LEG HEAVINESS. NON DIAGNOSTIC LEXISCAN STRESS. MYOVIEW IMAGES REPORTED SEPARATELY. Test Summary REST 02:56 . . 85 . 129/ 83 . . Stage 1 01:00 . . 116 . . . . Stage 2 01:00 . . 112 . 149/ 89 . . Stage 3 01:00 . . 105 . 137/ 78 . . Stage 4 01:00 . . 103 . 141/ 84 . . Stage 4 01:01 . . 102 . 141/ 84 . Stop exercise at 04:01 RECOVERY 01:00 . . 97 . . . . RECOVERY 02:00 . . 92 . . . . RECOVERY 03:00 . . 87 . 141/ 89 . . RECOVERY 04:00 . . 92 . 141/ 89 . . RECOVERY 05:00 . . 85 . 147/ 92 . . RECOVERY 05:17 . . 88 . 147/ 92 . . Electronically signed by : Tre Moran MD 10/25/2021 08:49:31
== END ==
PROVIDERS: PCP Internal Medicine Adolescent Medicine; Visit Provider Nurse Practitioner Family
DX: E78.2 Mixed hyperlipidemia (principal); F17.200 Nicotine dependence, unspecified, uncomplicated; I25.10 Atherosclerotic heart disease of native coronary artery without angina pectoris; R06.00 Dyspnea, unspecified; R07.9 Chest pain, unspecified; R00.2 Palpitations
CPT/HCPCS: 78452; 93017; 93270; A9502; J0280; J2785

== ENCOUNTER → 2022-02-21 10:28 | Outpatient (CLI) | payer MEDICARE, BC, SELFPAY ==
--- NOTE | 2022-02-21 10:34 | XR_ITS ---
FINAL REPORT CLINICAL HISTORY: BILATERAL shoulder pain FINDINGS: LEFT SHOULDER Three views demonstrate no acute fracture or dislocation. There is mild AC joint degenerative change. The visualized bony structures are well aligned. No soft tissue abnormality is seen. IMPRESSION: No acute process. Reviewed, Interpreted and Dictated by Phil Bocanegra III, MD Transcribed by Margaret Patel Authenticated by Phil Bocanegra III, MD on 02/21/2022 11:34:[address] [facility]
--- NOTE | 2022-02-21 10:34 | XR_ITS ---
FINAL REPORT CLINICAL HISTORY: BILATERAL shoulder pain FINDINGS: RIGHT SHOULDER Three views demonstrate no acute fracture or dislocation. There is mild AC joint degenerative change. The visualized bony structures are well aligned. No soft tissue abnormality is seen. IMPRESSION: No acute process. Reviewed, Interpreted and Dictated by Phil Bocanegra III, MD Transcribed by Margaret Patel Authenticated by Phil Bocanegra III, MD on 02/21/2022 11:34:[address] [facility]
== END ==
PROVIDERS: PCP Internal Medicine Adolescent Medicine; Visit Provider Orthopaedic Surgery
DX: M25.511 Pain in right shoulder (principal); M25.512 Pain in left shoulder
CPT/HCPCS: 73030

== ENCOUNTER → 2022-03-19 08:54 | Outpatient (CLI) | payer MEDICARE, BC, SELFPAY ==
--- NOTE | 2022-03-19 09:04 | XR_ITS ---
FINAL REPORT CLINICAL HISTORY: chronic knee pain, NKI COMPARISON: October 15, 2018 FINDINGS: Four views of the left knee were obtained. There is no acute fracture or dislocation. There are moderate and severe degenerative changes. There is severe lateral compartment joint space narrowing. There are subchondral cyst or osteochondral lesions in the lateral femoral condyle and lateral tibial plateau. There is a small joint effusion. IMPRESSION: Moderate and severe degenerative changes, significantly progressed since prior. Reviewed, Interpreted and Dictated by Phil Bocanegra III, MD Transcribed by Nirav Sweeney Authenticated by Phil Bocanegra III, MD on 03/19/2022 10:34:19 AM [facility]
== END ==
PROVIDERS: PCP Nurse Practitioner Family; Visit Provider Orthopaedic Surgery
DX: M25.562 Pain in left knee (principal)
CPT/HCPCS: 73564

== ENCOUNTER → 2022-05-30 08:49 | Outpatient (CLI) | payer MEDICARE, BC, SELFPAY ==
--- NOTE | 2022-05-30 08:53 | XR_ITS ---
FINAL REPORT CLINICAL HISTORY: knee pain FINDINGS: RIGHT KNEE Three views were obtained. There is no acute fracture or dislocation. The joint spaces appear normal. No soft tissue abnormality is identified. IMPRESSION: No acute process. Reviewed, Interpreted and Dictated by Adonay Haque MD Transcribed by Margaret Patel Authenticated and [facility][1]
== END ==
PROVIDERS: PCP Nurse Practitioner Family; Visit Provider Orthopaedic Surgery
DX: M25.561 Pain in right knee (principal)
CPT/HCPCS: 73562

== ENCOUNTER → 2022-08-11 08:47 | Outpatient (CLI) | payer MEDICARE, BC, SELFPAY ==
[2022-08-11 09:19] LABS: Basophils # 0.1 K/mm3 (0-0.2); Basophils % 1.5 % (0.1-2.0); Eosinophils # 0.1 K/mm3 (0.0-0.4); Eosinophils % 1.3 % (0.1-12.0); Hematocrit 48.8 % (37.0-47.0); Hemoglobin 15.9 g/dL (12.2-16.2); Lymphocytes # 2.7 K/mm3 (0.7-4.5); Mean Corpuscular HGB Conc 32.6 g/dL (31.8-35.4); Mean Corpuscular Hemoglobin 31.8 pg (27.0-31.2); Mean Corpuscular Volume 97.5 fl (81-99); Monocytes # 0.4 K/mm3 (0.1-1.0); Monocytes % 5.1 % (1.7-9.3); Neutrophils # 4.7 K/mm3 (1.8-7.8); Neutrophils % 58.1 % (37.0-80.0); Platelet Count 258 K/mm3 (142-424); Red Cell Distribution Width 13.1 % (11.5-17.5)
[2022-08-11 09:37] LABS: Chloride 106 mmol/L (98-107); Potassium 4.9 mmoL/L (3.5-5.1); Sodium 142 mmol/L (136-145)
[2022-08-11 09:39] LABS: Alanine Aminotransferase 36 U/L (12-78); Aspartate Amino Transferase 40 U/L (14-36); Bilirubin,Unconjugated 0.5 mg/dL (0.0-1.1); Blood Urea Nitrogen 11 mg/dl (7-17); Estimated Glomerular Filt Rate 123 ml/min (>60); GFR (African American) 149 ML/MIN (>60)
[2022-08-11 09:40] LABS: Albumin Level 4.3 g/dl (3.5-5.0); Alkaline Phosphatase 166 U/L (38-126); Anion Gap 15.9 mEq/L (5-15); Bilirubin,Indirect 0.5 mg/dL (0.0-0.9); Bilirubin,Total 0.5 mg/dl (0.2-1.3); Calcium 9.4 mg/dl (8.4-10.2); Carbon Dioxide 25 mmol/L (22.0-30.0); Cholesterol 240 mg/dl (140-200); Glucose 89 mg/dl (74-100); Magnesium 2.1 mg/dl (1.6-2.3); Triglycerides 169 mg/dl (30-150); VLDL Cholesterol 34 mg/dL (0-40)
[2022-08-11 09:41] LABS: Chol/HDL Ratio 5.2 (1-3.5); HDL Cholesterol 46 mg/dl (40-60)
[2022-08-11 09:52] LABS: Direct LDL Cholesterol 141.88 mg/dL (100-129)
[2022-08-11 09:57] LABS: Free T4 (Free Thyroxine) 0.91 ng/dl (0.78-2.19)
[2022-08-11 10:11] LABS: Thyroid Stimulating Hormone 2.22 uIU/mL (0.465-4.68)
== END ==
PROVIDERS: PCP Nurse Practitioner Family; Visit Provider Physician Assistant
DX: E78.2 Mixed hyperlipidemia (principal); I25.10 Atherosclerotic heart disease of native coronary artery without angina pectoris; R06.00 Dyspnea, unspecified
CPT/HCPCS: 80048; 80061; 80076; 83735; 84439; 84443; 85025

== ENCOUNTER 2022-08-19 09:28 | Outpatient (CLI) | payer MEDICARE, BC, SELFPAY ==
--- NOTE | 2022-08-19 10:10 | PC.NURSE ---
1010-spoke with liliana thakur to clarify order. pt to receive leqvio 284mg sq day 1, in 3 months, and then every 6 months.
[2022-08-19 10:33] VITALS: BP 120/71; PULSE 64; RESP 18; O2SAT 98
== END 2022-08-19 10:33 | disposition home or self-care (01) ==
LOC: INF 09:30
PROVIDERS: PCP Nurse Practitioner Family; Visit Provider Physician Assistant
DX: R06.09 Other forms of dyspnea (principal); I25.10 Atherosclerotic heart disease of native coronary artery without angina pectoris; E78.2 Mixed hyperlipidemia
CPT/HCPCS: 96372; J1306

== ENCOUNTER 2022-11-18 09:21 | Outpatient (CLI) | payer MEDICARE, BC, SELFPAY ==
[2022-11-18 09:55] VITALS: BP 125/87; PULSE 70; RESP 20; TEMP 35.9; O2SAT 95
== END 2022-11-18 10:15 | disposition home or self-care (01) ==
LOC: INF 09:22
PROVIDERS: PCP Nurse Practitioner Family; Visit Provider Physician Assistant
DX: R06.09 Other forms of dyspnea (principal); I25.10 Atherosclerotic heart disease of native coronary artery without angina pectoris; E78.2 Mixed hyperlipidemia
CPT/HCPCS: 96372; J1306

== ENCOUNTER → 2023-02-02 08:14 | Outpatient (CLI) | payer MEDICARE, BC, SELFPAY ==
[2023-02-02 09:19] LABS: Alanine Aminotransferase 41 U/L (12-78); Albumin Level 4.2 g/dl (3.5-5.0); Alkaline Phosphatase 155 U/L (38-126); Aspartate Amino Transferase 45 U/L (14-36); Bilirubin,Direct 0.2 mg/dl (0.0-0.4); Bilirubin,Indirect 0.3 mg/dL (0.0-0.9); Bilirubin,Total 0.5 mg/dl (0.2-1.3); Bilirubin,Unconjugated 0.3 mg/dL (0.0-1.1); Chol/HDL Ratio 2.6 (1-3.5); Cholesterol 132 mg/dl (140-200); HDL Cholesterol 51 mg/dl (40-60); Total Protein,Serum 6.9 g/dl (6.3-8.2); Triglycerides 121 mg/dl (30-150); VLDL Cholesterol 24 mg/dL (0-40)
[2023-02-02 09:30] LABS: Direct LDL Cholesterol 70.83 mg/dL (100-129)
== END ==
PROVIDERS: PCP Nurse Practitioner Family; Visit Provider Nurse Practitioner Family
DX: E78.2 Mixed hyperlipidemia (principal); I25.10 Atherosclerotic heart disease of native coronary artery without angina pectoris; R06.00 Dyspnea, unspecified
CPT/HCPCS: 36415; 80061; 80076

== ENCOUNTER → 2023-02-09 13:05 | Outpatient (CLI) | payer MEDICARE, BC, SELFPAY ==
--- NOTE | 2023-02-09 13:11 | XR_ITS ---
FINAL REPORT CLINICAL HISTORY: LT SHOULDER PAIN, fell 1 week ago FINDINGS: Internal and external rotation views of the left shoulder and a scapular Y were obtained. Comparison is made to an exam dated February 2022. There is no fracture or dislocation. There is mild AC joint degenerative disease. Soft tissues are normal. IMPRESSION: No acute osseous abnormality of the left shoulder. Reviewed, Interpreted and Dictated by Janeth Gusman MD Transcribed by Nirav Sweeney Authenticated and [facility]
== END ==
PROVIDERS: PCP Nurse Practitioner Family; Visit Provider Nurse Practitioner Family
DX: M25.512 Pain in left shoulder (principal)
CPT/HCPCS: 73030

== ENCOUNTER 2023-03-06 08:00 | Outpatient (RCR) | payer MEDICARE, BC, SELFPAY ==
--- NOTE | 2023-02-19 11:44 | HMH.OTOPEV ---
OT Inpatient Evaluation Rehab OT Outpatient Eval Start: 02/19/23 10:43 Freq: Status: Active Protocol: Document 02/19/23 10:53 ROMEO (Rec: 02/19/23 11:15 ROMEO [id number]) E-signed By Alicia Kidd, OT Outpatient Therapy Subjective History Subjective History 67 year old male referred to skilled OP OT services for left shld pain. Patinet stated L shld began increase in pain for the past two week. Patient has recieved services to the left shld in the past for pain and recieved an cortisone injection at ortho. Ortho has verbalzie to patient that surgery would be an option, however Patient wants to continue non-operative strategies. Patient exhibit limited AROM and weakness in the left shld. Chief Complaint Pain,Weakness Symptom Type Ache Symptoms Relieved By Prescription Meds Symptoms Aggravated By Physical Activity Prior Functional Limitations Lifting Current Functional Limitations Reaching,Lifting,Recreation Activity Symptom Description Intermittent Level of pain today (0-10) 0 Pain scale - at its best (0-10) 0 Pain scale - at its worst (0-10) 6 Shoulder/Elbow Eval Shoulder Objective Measurements Shoulder ROM Left Shoulder Abduction Active Range of 90 Motion (degrees) Shoulder Flexion Active Range of Motion 105 (degrees) Query Text: Shoulder External Rotation Active Range 50 of Motion (degrees) Shoulder Internal Rotation Passive Range 60 of Motion (degrees) pain with active ROM shoulder exam left standard Shoulder MMT Shoulder Abduction Strength Grade 3+ Fair+ Shoulder Extension Strength Grade 3+ Fair+ Shoulder Flexion Strength Grade 3+ Fair+ Shoulder Horizontal Abduction Strength 3+ Fair+ Grade Shoulder Horizontal Adduction Strength 3+ Fair+ Grade Infraspinatus/Teres Minor Strength Grade 3+ Fair+ Shoulder External Rotation Strength 3+ Fair+ Grade Shoulder Internal Rotation Strength 3+ Fair+ Grade Shoulder Special Tests impingement sign present shoulder exam left standard Shoulder Drop Arm Test Positive Left Shoulder Empty Can (Supraspinatus) Test Positive Left
== END 2023-03-06 08:05 | disposition home or self-care (01) ==
LOC: OT 08:00
PROVIDERS: PCP Nurse Practitioner Family; Visit Provider Nurse Practitioner Family
DX: M25.512 Pain in left shoulder (principal)
CPT/HCPCS: 97010; 97014; 97110; 97140; 97165; 97530; G0283

== ENCOUNTER → 2023-03-16 13:45 | Outpatient (CLI) | payer MEDICARE, BC, SELFPAY ==
--- NOTE | 2023-03-16 13:45 | MR_ITS ---
FINAL REPORT CLINICAL HISTORY: shoulder pain. WEAKNESS IN ARM. FELT A PULLING SENSATION IN SHOULDER 1 MONTH AGO. FINDINGS: Multi planar MR imaging of the left shoulder was performed. There is heterogeneous abnormal signal at the insertion of the supraspinatus tendon consistent with a partial insertional tendon tear. There is no definite full-thickness component. There is no abnormal fluid in the subacromial/subdeltoid bursa. The anterior and posterior glenoid guy appear intact. The biceps tendon appears intact. Mild hypertrophic changes are seen at the acromioclavicular joint. IMPRESSION: Partial insertional tear at the insertion of the supraspinatus tendon without full-thickness component. Reviewed, Interpreted and Dictated by Adonay Haque MD Transcribed by Manuela Yoo Authenticated and . [facility]
== END ==
PROVIDERS: PCP Nurse Practitioner Family; Visit Provider Orthopaedic Surgery
DX: M75.102 Unspecified rotator cuff tear or rupture of left shoulder, not specified as traumatic (principal); M25.512 Pain in left shoulder
CPT/HCPCS: 73221

== ENCOUNTER 2023-05-26 08:45 | Outpatient (CLI) | payer MEDICARE, BC, SELFPAY ==
[2023-05-26 09:03] VITALS: BP 117/76; PULSE 68; RESP 18; TEMP 36.9; O2SAT 98
== END 2023-05-26 09:30 | disposition home or self-care (01) ==
LOC: INF 08:45
PROVIDERS: PCP Nurse Practitioner Family; Visit Provider Physician Assistant
DX: E78.5 Hyperlipidemia, unspecified (principal)
CPT/HCPCS: 96372; J1306

== ENCOUNTER 2023-07-14 11:10 | Day surgery (SDC) | payer MEDICARE, BC, SELFPAY ==
[2023-07-14] VITALS (9 sets, daily range): BP systolic 90–154; BP diastolic 55–92; PULSE 60–82; RESP 16–20; TEMP 36.7; O2SAT 67–99; BMI 29.6
--- NOTE | 2023-07-14 11:43 | IR_ITS ---
APPROVED REPORT Patient Location: Outpatient PROCEDURES Left heart catheterization Left ventriculogram Selective coronary angiogram Intravascular ultrasound to the proximal dominant right coronary INDICATION Coronary artery disease, History of coronary stenting, Unstable angina, Angiographic ambiguity in the proximal dominant right coronary Informed consent was obtained prior to the procedure. COMPLICATIONS None Estimated Blood Loss: Less than 10 mls TECHNIQUE One percent lidocaine used to anesthetize the right anterior aspect of the wrist. The right radial artery was accessed via the Seldinger technique. A 6 Kiswahili sheath was placed in the right radial artery. 2.5 mg of Verapamil, 800 mcg of nitroglycerin, 1mg Lidocaine and 5000 U Heparin were given through the arterial sheath. The papa catheter was also used to perform left heart catheterization, left ventriculogram and selective coronary angiogram. At the end the diagnostic angiogram therapeutic Was administered giving a therapeutic ACT and the guide catheter was placed in the right coronary artery followed by Choice PT extra-support wire. Intravascular ultrasound probe was advanced which demonstrated wide stent patency with minimal in-stent restenosis. The angiographic ambiguous lesion in the proximal portion of the right coronary artery proved to be wide patency with no significant stenosis. All MLA was greater than 4 mm???. At the end the procedure the apparatus was removed the sheath was removed and hemostasis was achieved using TR banding patient was transferred to the postop holding in stable condition ANGIOGRAPHIC RESULTS The left main artery Has a stent in the ostial proximal mid segment is widely patent free of in-stent restenosis The left anterior descending artery Has proximal 10% stenoses with an additional eccentric 30% stenosis with the mid segment having 30 to 40% stenosis along a tortuous bend The circumflex artery Nondominant and has an ostial smooth 30 to 40% stenosis The right coronary artery Large dominant with a stent in the ostial proximal mid segment. The ostial and proximal segments are widely patent. There is a 30% in-stent haziness in the proximal portion adjacent to the RV marginal branch. There is additional 20 and 30% stenoses in the distal segment The COLLINS ventriculogram reveals Normal at 60% The left ventricular end-diastolic pressure 15 mmHg IMPRESSION Widely patent left main stent as described above Mild disease in the proximal LAD with mild to moderate disease in the mid LAD both best treated medically Mild to moderate ostial nondominant right coronary disease Wide stent patency throughout the ostial proximal mid dominant right coronary artery Normal ejection fraction Borderline LVEDP PLAN 1. Evaluation of noncardiac symptoms 2. Continue risk factor modification Electronically signed by : Pierre Lemus MD 07/14/2023 13:14:01
[2023-07-14 11:47] LABS: Chloride 105 mmol/L (98-107); Potassium 3.6 mmoL/L (3.5-5.1); Sodium 141 mmol/L (136-145)
[2023-07-14 11:50] LABS: Anion Gap 17.6 mEq/L (5-15); Basophils # 0.1 K/mm3 (0-0.2); Basophils % 0.8 % (0.1-2.0); Blood Urea Nitrogen 12 mg/dl (7-17); Carbon Dioxide 22 mmol/L (22.0-30.0); Creatinine Clearance Estimated 76 mL/min (50-200); Eosinophils # 0.2 K/mm3 (0.0-0.4); Eosinophils % 2.3 % (0.1-12.0); Estimated Glomerular Filt Rate 72 ml/min (>60); GFR (African American) 87 ML/MIN (>60); Glucose 105 mg/dl (74-100); Hematocrit 54.3 % (37.0-47.0); Hemoglobin 17.4 g/dL (12.2-16.2); Lymphocytes # 2.9 K/mm3 (0.7-4.5); Mean Corpuscular Hemoglobin 31.6 pg (27.0-31.2); Mean Corpuscular Volume 98.5 fl (81-99); Mean Platelet Volume 10.2 fl (7.4-10.4); Monocytes # 0.5 K/mm3 (0.1-1.0); Monocytes % 5.8 % (1.7-9.3); Neutrophils # 5.6 K/mm3 (1.8-7.8); Neutrophils % 60.2 % (37.0-80.0); Platelet Count 269 K/mm3 (142-424); Red Blood Count 5.51 M/mm3 (4.20-5.40); Red Cell Distribution Width 13.4 % (11.5-17.5); White Blood Count 9.3 K/mm3 (4.8-10.8)
[2023-07-14 11:51] LABS: Calcium 10.4 mg/dl (8.4-10.2)
[2023-07-15 09:24] LABS: CATHL Activated Clotting Time 327 SEC (74-125)
== END 2023-07-14 15:45 | disposition home or self-care (01) ==
PROVIDERS: PCP Nurse Practitioner Family; Visit Provider Internal Medicine
DX: I25.110 Atherosclerotic heart disease of native coronary artery with unstable angina pectoris (principal); F17.210 Nicotine dependence, cigarettes, uncomplicated; E78.5 Hyperlipidemia, unspecified; I70.213 Atherosclerosis of native arteries of extremities with intermittent claudication, bilateral legs; I25.2 Old myocardial infarction; Z79.899 Other long term (current) drug therapy
CPT/HCPCS: 80048; 85025; 85347; 92978; 93458; 99152; C1725; C1769; J1644

== ENCOUNTER → 2023-07-23 10:06 | Outpatient (CLI) | payer MEDICARE, BC, SELFPAY | PROVIDERS: PCP Nurse Practitioner Family; Visit Provider Nurse Practitioner | DX: E78.5 Hyperlipidemia, unspecified (principal); I25.10 Atherosclerotic heart disease of native coronary artery without angina pectoris; I25.2 Old myocardial infarction; R00.2 Palpitations; R06.00 Dyspnea, unspecified | CPT/HCPCS: 93270 ==

== ENCOUNTER → 2023-08-24 09:46 | Outpatient (CLI) | payer MEDICARE, BC, SELFPAY | PROVIDERS: PCP Nurse Practitioner Family; Visit Provider Physician Assistant | DX: I49.1 Atrial premature depolarization (principal); R00.2 Palpitations; R06.00 Dyspnea, unspecified | CPT/HCPCS: 93270 ==

== ENCOUNTER 2023-11-27 08:29 | Outpatient (CLI) | payer MEDICARE, BC, SELFPAY ==
[2023-11-27 08:50] VITALS: BP 119/77; PULSE 67; RESP 16; O2SAT 98
[2023-11-27] MEDS: INCLISIRAN SODIUM 284 MG/1.5 ML SYRINGE SQ (08:50)
== END 2023-11-27 09:00 | disposition home or self-care (01) ==
LOC: INF 08:31
PROVIDERS: PCP Nurse Practitioner Family; Visit Provider Physician Assistant
DX: E78.5 Hyperlipidemia, unspecified (principal)
CPT/HCPCS: 96372; J1306

== ENCOUNTER 2024-01-01 13:28 | Outpatient (CLI) | payer MEDICARE, BC, SELFPAY ==
--- NOTE | 2024-01-01 13:36 | ECG_ITS ---
APPROVED REPORT Exam: Resting ECG HR:92 bpm ECG Measurements Heart Rate 92 AXES IN 177 P 50 QRSd 87 QRS -1 QT 334 T 27 QTc 383 Conclusion SINUS RHYTHM LOW QRS VOLTAGE IN PRECORDIAL LEADS [QRS DEFLECTION < 1.0 mV IN CHEST LEADS] Isolated Q in III ABNORMAL ECG UNCONFIRMED REPORT Electronically signed by : Krishna Corbin MD 01/02/2024 08:15:41
[2024-01-01 13:39] LABS: MANUAL DIFFERENTIAL MANUAL DIFFERENTIAL (MANUAL DIFF)
--- NOTE | 2024-01-01 13:44 | XR_ITS ---
FINAL REPORT CLINICAL HISTORY: Pre Op; left knee sx January 2024 FINDINGS: TWO-VIEW CHEST The heart size is normal. The mediastinum is normal. There is mild right lung base atelectasis or scar. There is no pneumothorax. IMPRESSION: Right lung base atelectasis versus scar. Reviewed, Interpreted and Dictated by Phil Bocanegra III, MD Transcribed by Margaret Patel Authenticated and [facility]
--- NOTE | 2024-01-01 13:44 | XR_ITS ---
FINAL REPORT CLINICAL HISTORY: left knee pain, surgery scheduled January 2024 FINDINGS: Left knee Three views were obtained. There is no acute fracture or dislocation. There are moderate degenerative changes with moderate lateral compartment narrowing. Small joint effusion is identified. IMPRESSION: Degenerative changes and small joint effusion. Reviewed, Interpreted and Dictated by Phil Bocanegra III, MD Transcribed by Margaret Patel Authenticated and [facility]
[2024-01-01 14:01] LABS: Basophils # 0.1 K/mm3 (0-0.2); Basophils % 0.5 % (0.1-2.0); Eosinophils # 0.1 K/mm3 (0.0-0.4); Eosinophils % 0.7 % (0.1-12.0); Hematocrit 49.2 % (37.0-47.0); Hemoglobin 16.4 g/dL (12.2-16.2); Lymphocytes # 3.3 K/mm3 (0.7-4.5); Lymphocytes % 34.1 % (10-50); Mean Corpuscular HGB Conc 33.2 g/dL (31.8-35.4); Mean Corpuscular Hemoglobin 33.1 pg (27.0-31.2); Mean Corpuscular Volume 99.6 fl (81-99); Mean Platelet Volume 9.9 fl (7.4-10.4); Monocytes # 0.6 K/mm3 (0.1-1.0); Monocytes % 6.1 % (1.7-9.3); Neutrophils # 5.6 K/mm3 (1.8-7.8); Neutrophils % 58.5 % (37.0-80.0); Platelet Count 302 K/mm3 (142-424); Red Blood Count 4.94 M/mm3 (4.20-5.40); Red Cell Distribution Width 13.3 % (11.5-17.5); White Blood Count 9.5 K/mm3 (4.8-10.8)
[2024-01-01 14:51] LABS: Alanine Aminotransferase 51 U/L (12-78); Albumin Level 4.3 g/dl (3.5-5.0); Albumin/Globulin Ratio 1.6 (1.1-1.8); Alkaline Phosphatase 130 U/L (38-126); Anion Gap 10.1 mEq/L (5-15); Aspartate Amino Transferase 47 U/L (14-36); Bilirubin,Total 0.4 mg/dl (0.2-1.3); Blood Urea Nitrogen 12 mg/dl (7-17); Calcium 10.1 mg/dl (8.4-10.2); Carbon Dioxide 30 mmol/L (22.0-30.0); Chloride 107 mmol/L (98-107); Estimated Glomerular Filt Rate 83 ml/min (>60); GFR (African American) 101 ML/MIN (>60); Globulin 2.7 g/dL (1.3-3.2); Glucose 93 mg/dl (74-100); Potassium 4.1 mmoL/L (3.5-5.1); Sodium 143 mmol/L (136-145)
[2024-01-01 15:09] LABS: Eosinophils % 1 % (0-3); Lymphocytes % 30 % (10-50); Monocytes % 2 % (2-9); Neutrophils % 67 % (42-76); Platelet Estimate Normal; RBC Morphology Normal; Total Cells Counted 100
== END 2024-01-01 23:59 ==
PROVIDERS: PCP Nurse Practitioner Family; Visit Provider Orthopaedic Surgery
DX: M17.12 Unilateral primary osteoarthritis, left knee (principal); M25.562 Pain in left knee; Z01.818 Encounter for other preprocedural examination
CPT/HCPCS: 36415; 71046; 73562; 80053; 85007; 85014; 85018; 85048; 85049; 93005

== ENCOUNTER 2024-01-05 10:38 | Outpatient (CLI) | payer MEDICARE, BC, SELFPAY ==
[2024-01-05 12:10] LABS: Alanine Aminotransferase 47 U/L (12-78); Albumin Level 4.2 g/dl (3.5-5.0); Alkaline Phosphatase 147 U/L (38-126); Aspartate Amino Transferase 43 U/L (14-36); Bilirubin,Direct 0.2 mg/dl (0.0-0.4); Bilirubin,Indirect 0.3 mg/dL (0.0-0.9); Bilirubin,Total 0.5 mg/dl (0.2-1.3); Bilirubin,Unconjugated 0.3 mg/dL (0.0-1.1); Cholesterol 173 mg/dl (140-200); Triglycerides 147 mg/dl (30-150); VLDL Cholesterol 29 mg/dL (0-40)
[2024-01-05 12:11] LABS: Chol/HDL Ratio 3.5 (1-3.5); HDL Cholesterol 50 mg/dl (40-60)
[2024-01-05 12:22] LABS: Direct LDL Cholesterol 82.86 mg/dL (100-129)
== END 2024-01-05 23:59 ==
PROVIDERS: PCP Nurse Practitioner Family; Visit Provider Nurse Practitioner Family
DX: E78.5 Hyperlipidemia, unspecified (principal); I25.10 Atherosclerotic heart disease of native coronary artery without angina pectoris; I25.2 Old myocardial infarction; I49.1 Atrial premature depolarization; R00.2 Palpitations; I11.9 Hypertensive heart disease without heart failure
CPT/HCPCS: 36415; 80061; 80076

== ENCOUNTER 2024-01-26 09:40 | Observation (INO) | payer MEDICARE, BC, SELFPAY ==
[2024-01-19 08:58] VITALS: BMI 29.6
[2024-01-26] VITALS (19 sets, daily range): BP systolic 82–149; BP diastolic 50–94; PULSE 78–100; RESP 16–18; TEMP 36.1–37; O2SAT 95–98; BMI 31.5
[2024-01-26] MEDS: LACTATED RINGERS 1000ML 1,000 ML 25 ML IV (06:21)
--- NOTE | 2024-01-26 07:21 | P.PNANES_ITS ---
[facility] Disclaimer: The information contained in this section may have been updated after the patient was seen, as this information can be updated by other users. Medical History History of left heart catheterization (LHC) Palpitations Tachycardia Claudication Chest pain HLD (hyperlipidemia) Tobacco dependence syndrome CAD (coronary artery disease) Dyspnea Surgical History (Updated 01/26/24 @ 06:24 by Antoine Thomas RN) History of arthroscopic knee surgery History of heart artery stent Family History (Updated 01/26/24 @ 06:24 by Antoine Thomas RN) Other Family history of cancer Family history of heart disease Social History Smoking Status: Former smoker tobacco type: cigarettes packs per day: 1 alcohol intake: never substance use type: denies use current occupational status: retired Travel in the last 8 weeks: None caffeine: Yes [facility] Anesthesia Checklist Patient Identification Patient Identification: Arm Band Structural Data Admitted From: Home Planned Operative Procedure/s: Left Total Knee Arthroplasty Consent for Planned Operative Procedure(s) Verified: Yes Verified Documents: Surgical Consent and History and Physical NPO Status Verified Time NPO: 00:00 Additional verifications Anesthesia Reactions: No Hx Blood Transfusions: No Blood Transfusion Reaction: No Airway Assessment Mallampati Score:: Class II C-Spine Mobility Assessed: Yes TMJ Mobility Assessed: Yes Dentition: Good Dentition Neurological Assessment Level of Consciousness: Awake and Alert Anesthesia Plan Anesthesia Risk discussed: Yes Anesthesia Plan: Verified ASA Class: III Anesthesia Type: MAC w/Spinal (with Left Adductor Canal Nerve Block)
[2024-01-26] MEDS: CEFAZOLIN SODIUM 1 GM in 0.9 % SODIUM CHLORIDE 50 ML IV (08:28)
[2024-01-26] MEDS: ROPIVACAINE 0.5% 30ML VIAL 150 MG (08:28)
[2024-01-26] MEDS: SODIUM CHLORIDE 0.9% IV ×2 (08:29→09:10)
[2024-01-26] MEDS: TRANEXAMIC ACID IV ×2 (08:29→09:10)
--- NOTE | 2024-01-26 09:48 | P.PNANES_ITS ---
[facility] Anesthesia Record Part I Anesthesia Record I Intake, IV Amount: 1,300 Hydration: Adequate Estimated blood loss (mL): 25 Urine output (mL): 0 Blood Products used (#): none Blood Pressure: 82/50 (108/75 after Rohan 120mcg.) SaO2: 97 Pulse Rate: 96 Airway Patency: Patent Respiratory Rate: 18 Temperature: 97.4 F Patient is:: Awake (Talking) and Stable Stable to PACU at:: 09:35
--- NOTE | 2024-01-26 09:48 | EXP.OP.NOTE ---
Date of procedure: 01/26/24 Pre-op Diagnosis:: Left knee osteoarthritis Post-op Diagnosis:: Left knee osteoarthritis Procedure performed:: Left total knee replacement Surgeon:: Nadeem Graf MD Realtime Court Reporter(s):: None AUTOMOTIVE QUALITY MANAGER:: Other Anesthesia: regional, local and spinal Estimated blood loss (mL): 5 Clinical Note:: Allyson is a very pleasant 68-year-old female with activity limiting left knee pain secondary to osteoarthritis that is affecting her quality of life. History of a left knee scope in 2017. Left knee x-rays reveal severe tricompartmental degenerative changes with complete loss of lateral joint space and marginal osteophyte formation with valgus deformity. A Monovisc injection in 2021 helped for 2 months. Left knee cortisone injections last year provided temporary relief. She has done physical therapy at [facility]. Cardiac clearance was obtained. We discussed all of the risks, benefits and alternatives to left total knee replacement and she agreed to proceed. Surgical consent form was signed. Operative findings:: Left knee severe tricompartmental degenerative changes with valgus deformity. Areas of full-thickness cartilage loss especially in the lateral compartment with marginal osteophyte formation. Operative note:: The patient was seen in the preoperative holding area. The left knee was marked to confirm the correct operative site. She was seen by anesthesia. She received Ancef 2 gm IV prophylactic antibiotics within 1 hour of incision time and a gram of IV TXA just prior to the incision and as we are closing to help minimize bleeding. An adductor canal block was performed for perioperative pain control. She was brought back to the operating room. Spinal performed without difficulty and IV sedation given throughout the case. A nonsterile tourniquet was applied to the left thigh. The left lower extremity was prepped and draped in the usual sterile fashion. Timeout was performed to confirm left total knee replacement for patient Allyson Juan. The left lower extremity was exsanguinated with an Esmarch and tourniquet was inflated to 300 mmHg. With the knee flexed I made a midline incision with a 10 blade scalpel. Full-thickness medial and lateral flaps were elevated. Adequate hemostasis maintained with Bovie electrocautery. Using a fresh 10 blade scalpel a medial parapatellar arthrotomy was made. The patella was everted. Infrapatellar fat pad and anterior femoral fat pads were excised with the Bovie. Marginal osteophytes were removed. A medial release was performed. Medial and lateral Z retractors were placed. We then drilled the distal femur and placed the intramedullary distal femoral cutting guide set at a 5 degree valgus cut. We then used the oscillating saw to make the distal femoral cut removing approximately a centimeter bone from the distal femur. The femur was then sized to a size of 4 set at 3 degrees of external rotation. The 4-in-1 cutting guide was pinned in place. We then made the anterior and posterior cuts and the chamfer cuts. We turned our attention to the tibia. PCL retractor and medial and lateral Hohmann retractors were placed. Using an extramedullary tibial cutting guide set at 3 degree posterior slope we made the proximal tibial cut removing approximately 5 mm of bone from the low lateral side and a centimeter from the high medial side. We then excised medial and lateral menisci and posterior osteophytes. With a 9 mm block we were able to achieve full extension with excellent alignment. The tibia was sized to a size 3 tibial tray centered off the medial third of the tibial tubercle. We impacted the fins. We then placed the size 4 trial femur. We made the box cut with the reamer and punch. Along with a 9 mm trial poly with the trial components in place there was full extension and flexion with excellent alignment and stability throughout. The patellar cut was then made. The patella was sized to a 29 mm button and drill holes were made after removing approximately 9 mm of bone from the patella. With a trial button in place there was excellent tracking. Trial components removed and final components opened on the back table. The knee was irrigated with Pulsavac lavage and thoroughly dried. A bone plug was placed in the distal femoral drill hole. The posterior capsule of the femur was injected with 20 cc of half percent Naropin and 5 mg of morphine for local anesthetic. The knee was then thoroughly dried. Cement was mixed on the back table. We applied cement to the cut tibial and femoral surfaces and impacted in place the size 3 tibia and size 4 femur. We then placed a 9 mm poly and it was seen to be fully engaged in the tibial tray. Excess cement was removed. We then applied cement to the patella and placed the 29 patellar button and it was held in place with a patellar clamp. The knee was left in extension while the cement cured. Once the cemented was fully cured we then proceeded with irrigation with a dilute Betadine solution and then Pulsavac lavage. We then proceeded with closure. The deep fascia was closed with #1 strata fix barbed suture, the dermis was closed with 2-0 Vicryl sutures and the skin was closed with a running 3-0 strata fix barbed subcuticular suture. We then applied a sterile dressing with Dermabond glue and Prineo mesh dressing. We then placed 4 x 4's, ABDs, soft roll and Brandon bandage. Tourniquet was deflated at 76 minutes. Anesthesia reversed out difficulty. Transferred to recovery in stable condition. All sponge and needle counts were correct. Postoperative plan: She will be admitted to the hospitalist service for medical management. I discussed with the hospitalist today. Mobilize as tolerated with PT and OT. Initiate aspirin tomorrow for DVT prophylaxis. Dressing change tomorrow with removal of soft dressing. Okay to shower with mesh dressing in place. 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 Follow-up in the office in 3 weeks. Tourniquet time (min): 76 Condition: stable Disposition: PACU Specimens:: Implants used: [employer] posterior stabilized total knee arthroplasty a size 4 femur, 3 tibia, 9 polyethylene and 29 patella Complications:: None
--- NOTE | 2024-01-26 10:06 | XR_ITS ---
FINAL REPORT CLINICAL HISTORY: Status post left knee replacement COMPARISON: 12/22/2023 FINDINGS: Left knee Two views were obtained. There is no acute fracture or dislocation. The patient is status post knee arthroplasty. There is no evidence of complication. There is soft tissue air. IMPRESSION: Status post knee arthroplasty. Reviewed, Interpreted and Dictated by Phil Bocanegra III, MD Transcribed by Margaret Patel Authenticated and [facility]
--- NOTE | 2024-01-26 10:26 | HMH.PHAINT1 ---
Pharmacy Intervention Comments: Verified home medications using external fill history and provider notes from recent office visit.
[2024-01-26] MEDS: MORPHINE PF 10 MG/10ML AMP (10:39)
[2024-01-26] MEDS: ONDANSETRON 4MG/2ML VIAL 4 MG IV (11:37)
[2024-01-26] MEDS: 0.9 % SODIUM CHLORIDE 1000ML 1,000 ML 75 ML IV (12:01)
[2024-01-26] MEDS: CEFAZOLIN SODIUM 2 GM in 0.9 % SODIUM CHLORIDE 100 ML IV ×2 (12:30→18:00)
[2024-01-26] MEDS: HEPARIN SODIUM 5,000 UNIT/ML VIAL 5000 UNIT SQ ×2 (14:11→20:46)
--- NOTE | 2024-01-26 14:15 | SW/DCPLANNER ---
Addendum entered by Corin Macedo 01/27/24 11:05: Kayla mendoza/ [facility] stated that services will start Thursday01/29/24. Addendum entered by Corin Macedo 01/27/24 09:26: Patient information/order has been faxed to Kayla mendoza/ [facility]. Original Note: I spoke w/ this patient regarding plans once medically stable for discharge. PT/OT evaluated patient and recommended outpatient vs home health services. Patient is agreeable to home health services and does not have a preference as to which agency. I will set up home health services at time of discharge. Patient will discharge tomorrow morning pending no setbacks. Patient also stated that she has all appropriate DME at home.
--- NOTE | 2024-01-26 14:22 | HMH.OTEV ---
OT Inpatient Evaluation Rehab OT IP Evaluation Start: 01/26/24 10:06 Freq: ONCE Status: Active Protocol: Document 01/26/24 14:20 BRANDENCURTIS (Rec: 01/26/24 14:22 JIGARACE [id number]) Rehab OT IP Assessment Subjective History Allyson is a very pleasant 68- year-old female with activity limiting left knee pain secondary to osteoarthritis that is affecting her quality of life. History of a left knee scope in 2017. Left knee x-rays reveal severe tricompartmental degenerative changes with complete loss of lateral joint space and marginal osteophyte formation with valgus deformity. A Monovisc injection in 2021 helped for 2 months. Left knee cortisone injections last year provided temporary relief. She has done physical therapy at [facility]. Cardiac clearance was obtained. We discussed all of the risks, benefits and alternatives to left total knee replacement and she agreed to proceed. Surgical consent form was signed. Patient lives with in 1 story home with 1-2 PENELOPE. Independent with all ADLs and fx'l mobility. Continue to drives. Subjective I feel better than yesterday. Instructed Patient on proper hand and foot placement to complete bed mobility from supine->sit @ EOB requiring Min A x2. Patient demonstrated good dynamic sitting balance at EOB. Patient stated to feel nausesa and requested to lay back in bed requiring Min A x2 . Objective Patient Orientation Person,Place,Name,Age,Birthday ,Year Right Upper Extremity Gross ROM WFL Left Upper Extremity Gross ROM WFL Bed Mobility bed mobility - supine/sit Assist Level Minimal x 2 (25% assist) Rehab OT IP prob,goals,plan Problems Date of Evaluation: 01/26/24 OT IP Problems Bed Mobility,Transfers,Balance ,Self care,Safety Rehab Potential Rehab Potential Good Equipment Needs Assistive Devices Rolling / Wheeled Walker Plan OT intervention Plan Bed Mobility,Transfers,Balance ,Self care,Safety,Therapeutic Exercise OT Plan Frequency Daily Duration LOS Discharge Goals Bed Mobility Ability Assistance x1 Discharge Plan OT Discharge Plan Patient was nausea once at EOB and OT And PT assisted patient to lay back in bed. Will attempt to stand patient tomorrow morning. Patient to continue to be seen for IP OT skilled services while here at [facility]. Eval Complexity Eval Charge Codes 17506 - Low Complexity PHYSICIAN CERTIFICATION: I certify the specified therapy services for Allyson Nixonaway are required, authorized, and reviewed every 30 days.
--- NOTE | 2024-01-26 17:14 | HMH.PTEV ---
Physical Therapy Evaluation Rehab PT IP Evaluation Start: 01/26/24 10:06 Freq: ONCE Status: Active Protocol: Document 01/26/24 13:00 ROXANA (Rec: 01/26/24 17:14 ROXANA [id number]) Subjective/History History History Allyson is a very pleasant 68- year-old female with activity limiting left knee pain secondary to osteoarthritis that is affecting her quality of life. History of a left knee scope in 2018. Left knee x-rays reveal severe tricompartmental degenerative changes with complete loss of lateral joint space and marginal osteophyte formation with valgus deformity. A Monovisc injection in 2021 helped for 2 months. Left knee cortisone injections last year provided temporary relief. She has done physical therapy at [facility]. Cardiac clearance was obtained. We discussed all of the risks, benefits and alternatives to left total knee replacement and she agreed to proceed. Surgical consent form was signed. Subjective Subjective PLOF per pt report: IND with all ADLs and functional mobility. Driving prior to surgery. Can have assistance from family if needed. New diagnosis of cancer in past 12 No months? Rehab PT IP Eval Objective Appearance Patient Behavior Appropriate,Cooperative Patient Orientation Person,Place Difficulty following instructions none Speech Pattern Clear Ambulation Patient Able to Ambulate No Balance Ability to Arise Able, uses arms to help Sitting Balance Steady, safe Transfers Bed Transfer Ability Moderate x 1 (50% assist) Rehab PT IP prob,goals,plan Problems Date of Evaluation: 01/26/24 PT IP Problems Bed Mobility,Transfers,Gait, Balance,Self care,Safety Rehab Potential Rehab Potential Good Equipment Needs Assistive Devices Rolling / Wheeled Walker Plan PT Intervention Plan Bed Mobility,Transfers,Gait, Balance,Self care,Safety, Therapeutic Exercise Other Intervention Plan 1-2 times PT Plan Frequency Daily Duration LOS Discharge Goals Bed Transfer Ability Minimal x 1 (25% assist) Sit to Stand Chair Transfer Ability Minimal x 1 (25% assist) Ambulation Assistive Device Rolling Walker Ambulation Distance (feet) 5 Discharge Plan PT Discharge Plan Pt limited this session by nausea once sitting at EOB. PT /OT assisted pt to return to supine with Min A. Pt would benefit from continued skilled PT services while at [facility]. Pt with plans to d/c home with care by daughter and son. Pt would benefit from PT services to addres deficits upon d/c home. Eval Complexity Eval Charge Codes 51374 - Moderate Complexity PHYSICIAN CERTIFICATION: I certify the specified therapy services for Allyson Juan are required, authorized, and reviewed every 30 days.
[2024-01-26] MEDS: MORPHINE 2MG/ML SYRINGE 2 MG IV (18:15)
--- NOTE | 2024-01-26 18:22 | P.HP_ITS ---
History of Present Illness *Admission Date: 01/26/24 *Reason for visit:: Knee replacement *History of present illness: Patient is a 68-year-old female with past medical history of CAD who presented to hospital due to knee replacement. At time of my evaluation patient denies chest pain shortness of breath nausea vomiting diarrhea constipation dysuria fevers and chills. Patient denies numbness tingling sensation in the legs. [facility] Disclaimer: The information contained in this section may have been updated after the patient was seen, as this information can be updated by other users. Medical History History of left heart catheterization (LHC) Palpitations Tachycardia Claudication Chest pain HLD (hyperlipidemia) Tobacco dependence syndrome CAD (coronary artery disease) Dyspnea Surgical History History of arthroscopic knee surgery History of heart artery stent Family History Other Family history of cancer Family history of heart disease Social History (Updated 01/26/24 @ 12:39 by Krishna Cali RN) Smoking Status: Former smoker tobacco type: cigarettes packs per day: 1 alcohol intake: never substance use type: denies use current occupational status: retired Travel in the last 8 weeks: None caffeine: Yes Review of Systems Review of Systems Review of systems (narrative): as per [facility] Meds Home Medications and Allergies Home Medications Medication Instructions Recorded Confirmed Type aspirin 81 mg tablet,delayed 81 mg PO DAILY heart preventative 05/26/23 01/26/24 History release inclisiran 284 mg/1.5 mL 284 mg SQ [id number] Cholesterol 05/26/23 01/26/24 History subcutaneous syringe (Leqvio) furosemide 20 mg tablet 20 mg PO QAM edema 30 days #30 tabs 07/23/23 01/26/24 Rx aspirin 325 mg tablet 325 mg PO DAILY #20 tabs 01/26/24 01/26/24 Rx oxycodone 5 mg tablet 5 mg PO Q4H PRN pain #30 tabs 01/26/24 01/26/24 Rx New Prescriptions to Start Prescriptions: Allergies Allergy/AdvReac Type Severity Reaction Status Date / Time rosuvastatin [From Crestor] Allergy Verified 01/26/24 06:25 atorvastatin AdvReac Severe Verified 01/26/24 06:25 evolocumab AdvReac Intermediate myalgia Verified 01/26/24 06:25 [From Repatha SureClick] pitavastatin [From Livalo] AdvReac Mild myalgia Verified 01/26/24 06:25 metoprolol AdvReac Dizziness, Verified 01/26/24 06:25 dropped hr Exam Data for Last 24 hours Vital signs and Labs for Last 24 Hours: Temp Pulse Resp BP Pulse Ox O2 Del Method 98.6 F 86 17 98/78 L 98 Room Air 01/26/24 14:00 01/26/24 14:00 01/26/24 14:00 01/26/24 14:00 01/26/24 14:00 01/26/24 18:21 I & O for Last 24 hours: Intake & Output 01/23/24 01/24/24 01/25/24 01/26/24 22:59 23:59 23:59 23:59 Intake Total 1400 / 1400 Balance 1400 / 1400 Weight 94.149 kg Constitutional Constitutional: no acute distress *Routine HEENT Exam Head: Present normocephalic Eye: Present EOMI and PERRL ENT: Present mucous membranes moist *Routine Neck Exam Neck: Present supple; Absent lymphadenopathy *Routine Respiratory Exam Respiratory: Present CTA bilaterally *Routine Cardiovascular Exam Cardiovascular: Present RRR *Routine Abdominal Exam Abdominal: Present soft and normoactive bowel sounds; Absent tenderness *Routine Rectal Exam Rectal:: deferred *Routine Genitalia Exam Genitalia:: deferred *Routine Extremities Exam Extremities: Absent cyanosis, clubbing or edema *Routine Skin Exam Skin: Present warm; Absent rash *Routine Neurological Exam Neurological: Present alert and oriented X3 Assessment and Plan *Assessment and plan (1) Primary osteoarthritis of left knee: Status: Acute Category: Medical Code(s): M17.12 - Unilateral primary osteoarthritis, left knee (2) HLD (hyperlipidemia): Status: Chronic Qualifiers: Hyperlipidemia type: mixed hyperlipidemia Qualified Code(s): E78.2 - Mixed hyperlipidemia Category: Medical Code(s): E78.5 - Hyperlipidemia, unspecified (3) Tobacco dependence syndrome: Status: Chronic Category: Medical Code(s): F17.200 - Nicotine dependence, unspecified, uncomplicated (4) CAD (coronary artery disease): Status: Chronic Qualifiers: Coronary Disease-Associated Artery/Lesion type: [place] artery [place] vs. transplanted heart: [place] heart Associated angina: without angina Qualified Code(s): I25.10 - Atherosclerotic heart disease of [place] coronary artery without angina pectoris Category: Medical Code(s): I25.10 - Atherosclerotic heart disease of [place] coronary artery without angina pectoris Plan Patient is a 68-year-old female with past medical history of CAD who presented to hospital due to knee replacement. At time of my evaluation patient denies chest pain shortness of breath nausea vomiting diarrhea constipation dysuria fevers and chills. Patient denies numbness tingling sensation in the legs. Assessment and plan Left knee replacement due to left knee osteoarthritis History of CAD Hypertension Hyperlipidemia Tobacco use Plan S/p surgery by orthopedics Consult PT/OT Pain control Monitor CBC BMP in a.m. Ambulation Aspirin 325 daily counseled on tobacco smoking DVT prophylaxis-heparin
--- NOTE | 2024-01-26 18:50 | PC.NURSE ---
Pt arrived to the department per bed at this time.
[2024-01-26] MEDS: OXYCODONE 5MG IMMEDIATE RELEASE TABLET 5 MG PO ×2 (20:45→23:27)
[2024-01-26] MEDS: ACETAMINOPHEN 325MG TAB 650 MG PO (23:26)
--- NOTE | 2024-01-26 23:56 | PC.NURSE ---
PT REPORTS FEELING BETTER,RATES PAIN A 1 NOW.RESTING QUITELY,BED IN LOW POSTION,CALL IBARRA IN REACH
[2024-01-27] VITALS: BP 90/57; PULSE 100; RESP 17; TEMP 36.6; O2SAT 93
[2024-01-27 04:00] VITALS: BP 104/66; PULSE 92; RESP 16; TEMP 36.8; O2SAT 97; BMI 32.0
[2024-01-27] MEDS: ACETAMINOPHEN 325MG TAB 650 MG PO ×2 (04:13→08:45)
[2024-01-27] MEDS: OXYCODONE 5MG IMMEDIATE RELEASE TABLET 5 MG PO ×2 (04:15→08:46)
--- NOTE | 2024-01-27 04:15 | PC.NURSE ---
NO ACUTE CHANGES FROM PREVIOUS ASSESSMENT.LUNGS CLEAR THROUGHOUT,RESP.EVEN AND UNLABORED,AFEBRILE,LEFT KNEE-NO DRAINAGE TO THE DRESSING,ICE POLOR PACK REMAINS.PT HAS SLEPT WELL TONIGHT,PAIN HAS BEEN CONTROLLED WITH OXYCODONE 5MG AND TYLENOL 650MG PO..BED IN LOW POSITION,CALL IBARRA IN REACH,BED SIDE TABLE IN REACH
--- NOTE | 2024-01-27 06:34 | P.DS_ITS ---
General Admission date:: 01/26/24 Discharge date: 01/27/24 HPI HPI HPI: Patient is a 68-year-old female with past medical history of CAD who presented to hospital due to knee replacement. At time of my evaluation patient denies chest pain shortness of breath nausea vomiting diarrhea constipation dysuria fevers and chills. Patient denies numbness tingling sensation in the legs. Hospital Course Hospital Course Hospital Course: Patient is a 68-year-old female with past medical history of CAD who presented to hospital due to knee replacement. Admitted to medicine for monitoring overnight. Evaluated by therapy. Patient stable to discharge home with home health rehab for 1 to 2 weeks. Pain control and DVT prophylaxis sent. Follow- up with orthopedics in the coming weeks. Problems addressed as follows: Assessment and plan Left knee replacement due to left knee osteoarthritis History of CAD Hypertension Hyperlipidemia Tobacco use Plan Status post surgery with orthopedics on 01/25. Tolerated left total knee arthroplasty without complication. Having some slight pain at site of tourniquet but otherwise no significant complaints this morning. Hemodynamics and labs stable. Worked with therapy during admission. Will have home health at discharge. Pain control and DVT prophylaxis with aspirin sent to pharmacy. Continue 325 mg aspirin daily for 2 weeks and then resume 81 mg aspirin thereafter. Follow-up with orthopedics in 1 to 2 weeks. Ambulate as tolerated. Continued home medications for chronic conditions. Tolerating p.o. intake. Exam Data for Last 24 hours Vital signs and Labs for Last 24 Hours: Temp Pulse Resp BP Pulse Ox O2 Del Method 98.3 F 92 H 16 104/66 L 97 Room Air 01/27/24 04:00 01/27/24 04:00 01/27/24 04:00 01/27/24 04:00 01/27/24 04:00 01/27/24 04:45 I & O for Last 24 hours: Intake & Output 01/24/24 01/25/24 01/26/24 01/27/24 23:59 23:59 23:59 23:59 Intake Total 2044 Output Total 0 / 0 0 / 0 Balance 2044 0 / 0 Weight 94.149 kg 95.844 kg Constitutional Constitutional: no acute distress and obese *Routine HEENT Exam Head: Present normocephalic Eye: Present EOMI and PERRL ENT: Present mucous membranes moist *Routine Neck Exam Neck: Present supple; Absent lymphadenopathy *Routine Respiratory Exam Respiratory: Present CTA bilaterally *Routine Cardiovascular Exam Cardiovascular: Present RRR *Routine Abdominal Exam Abdominal: Present soft and normoactive bowel sounds; Absent tenderness *Routine Rectal Exam Patient deferred: visual exam *Routine Exam Patient deferred: external exam *Routine Extremities Exam Extremities: Absent cyanosis, clubbing or edema Comments: Left knee with postsurgical bandage, clean, dry, intact. Neurovascularly intact in foot distal to surgery *Routine Skin Exam Skin: Present warm; Absent rash *Routine Neurological Exam Neurological: Present alert, oriented X3 and moving all extremities; Absent altered mental status DS: Diagnosis Discharge Diagnosis (1) Primary osteoarthritis of left knee: Status: Acute Code(s): M17.12 - Unilateral primary osteoarthritis, left knee (2) HLD (hyperlipidemia): Status: Chronic Code(s): E78.5 - Hyperlipidemia, unspecified Qualifiers: Hyperlipidemia type: mixed hyperlipidemia Qualified Code(s): E78.2 - Mixed hyperlipidemia (3) Tobacco dependence syndrome: Status: Chronic Code(s): F17.200 - Nicotine dependence, unspecified, uncomplicated (4) CAD (coronary artery disease): Status: Chronic Code(s): I25.10 - Atherosclerotic heart disease of [place] coronary artery without angina pectoris Qualifiers: Associated angina: without angina Coronary Disease-Associated Artery/Lesion type: [place] artery [place] vs. transplanted heart: [place] heart Qualified Code(s): I25.10 - Atherosclerotic heart disease of [place] coronary artery without angina pectoris Meds Home Medications and Allergies Home Medications Medication Instructions Recorded Confirmed Type aspirin 81 mg tablet,delayed 81 mg PO DAILY heart preventative 05/26/23 01/26/24 History release inclisiran 284 mg/1.5 mL 284 mg SQ [id number] Cholesterol 05/26/23 01/26/24 History subcutaneous syringe (Leqvio) furosemide 20 mg tablet 20 mg PO QAM edema 30 days #30 tabs 07/23/23 01/26/24 Rx aspirin 325 mg tablet 325 mg PO DAILY #20 tabs 01/26/24 01/26/24 Rx acetaminophen 325 mg tablet 650 mg (2 x 325 mg) PO Q4HP PRN 01/27/24 Rx Fever Or Mild Pain (1-3) #0 tabs aspirin 325 mg tablet 325 mg PO DAILY 14 days #14 tabs 01/27/24 Rx docusate sodium 100 mg capsule 100 mg PO DAILY PRN Constipation 01/27/24 Rx 10 days #10 caps oxycodone 5 mg tablet 5 mg PO Q4H PRN pain 3 days #18 01/27/24 Rx tabs New Prescriptions to Start Prescriptions: kathia Canseco,Yong docusate sodium Ajith,Yong oxycodone Ajith,Yong Allergies Allergy/AdvReac Type Severity Reaction Status Date / Time rosuvastatin [From Crestor] Allergy Verified 01/26/24 06:25 atorvastatin AdvReac Severe Verified 01/26/24 06:25 evolocumab AdvReac Intermediate myalgia Verified 01/26/24 06:25 [From Repatha SureClick] pitavastatin [From Livalo] AdvReac Mild myalgia Verified 01/26/24 06:25 metoprolol AdvReac Dizziness, Verified 01/26/24 06:25 dropped hr Discharge Plan Disposition Patient Disposition: Home Health Service Condition: Fair Discharge Order Discharge Orders: Discharge Order (Routine); Ordered 01/27/24 Ordered By: Yong Canseco Follow up Plan Follow up with: Yessy Copeland APRN [Primary Care Provider] - Enter time for follow up Nadeem Graf MD [Physician] - Enter time for follow up Prescriptions/Medication Reconciliation: New acetaminophen 325 mg Tablet 650 mg PO Q4HP PRN (Reason: Fever Or Mild Pain (1-3)) Qty: 0 0RF aspirin 325 mg Tablet 325 mg PO DAILY 14 Days Qty: 14 0RF docusate sodium 100 mg Capsule 100 mg PO DAILY PRN (Reason: Constipation) 10 Days Qty: 10 0RF Continued furosemide 20 mg tablet 20 mg PO QAM 30 Days Qty: 30 5RF aspirin 325 mg tablet 325 mg PO DAILY Qty: 20 2RF Rx Instructions: Take for DVT prophylaxis s/p L TKA instead of baby ASA, then transition back to baby ASA once rx finished Leqvio 284 mg/1.5 mL syringe 284 mg SQ [id number] oxycodone 5 mg tablet 5 mg PO Q4H PRN (Reason: pain) 3 Days Qty: 18 0RF Held aspirin 81 MG tablet,delayed release (DR/EC) 81 mg PO DAILY Hold Instructions: while on high dose aspirin Problem Reconciliation Problems Reviewed?: Yes Patient Discharge Instructions ACTIVITY: Continue current activity DIET: continue same diet Providers Primary Care Provider: Yessy Copeland Admit Provider: Nadeem Graf Attending Provider: Nadeem Graf
[2024-01-27 06:42] LABS: Basophils % 0.4 % (0.1-2.0); Eosinophils % 0.2 % (0.1-12.0); Hematocrit 40.9 % (37.0-47.0); Hemoglobin 13.1 g/dL (12.2-16.2); Lymphocytes # 1.6 K/mm3 (0.7-4.5); Lymphocytes % 16.4 % (10-50); Mean Corpuscular Hemoglobin 33.5 pg (27.0-31.2); Mean Corpuscular Volume 104.5 fl (81-99); Mean Platelet Volume 11.3 fl (7.4-10.4); Monocytes # 0.7 K/mm3 (0.1-1.0); Monocytes % 7.1 % (1.7-9.3); Neutrophils # 7.3 K/mm3 (1.8-7.8); Neutrophils % 75.8 % (37.0-80.0); Platelet Count 209 K/mm3 (142-424); Red Blood Count 3.91 M/mm3 (4.20-5.40); Red Cell Distribution Width 13.4 % (11.5-17.5); White Blood Count 9.6 K/mm3 (4.8-10.8)
[2024-01-27 07:21] LABS: Anion Gap 8.9 mEq/L (5-15); Blood Urea Nitrogen 7 mg/dl (7-17); Calcium 8.5 mg/dl (8.4-10.2); Carbon Dioxide 23 mmol/L (22.0-30.0); Chloride 110 mmol/L (98-107); Creatinine Clearance Estimated 81 mL/min (50-200); Estimated Glomerular Filt Rate 123 ml/min (>60); GFR (African American) 148 ML/MIN (>60); Glucose 116 mg/dl (74-100); Potassium 3.9 mmoL/L (3.5-5.1); Sodium 138 mmol/L (136-145)
[2024-01-27 08:00] VITALS: BP 100/71; PULSE 94; RESP 16; TEMP 36.4; O2SAT 93
[2024-01-27] MEDS: HEPARIN SODIUM 5,000 UNIT/ML VIAL 5000 UNIT SQ (08:46)
[2024-01-27] MEDS: SENNA 8.6MG TABLET 8.59999999999999964 MG PO (08:46)
[2024-01-27] MEDS: ASPIRIN 325MG TABLET 325 MG PO (08:46)
--- NOTE | 2024-01-27 14:04 | P.PNANES_ITS ---
[facility] Anesthesia Record Part II Anesthesia Record Part II Discharge Time: 10:02 Destination: Medical Surgical Department PACU nurse assessment reviewed?: Yes Patient Condition:: Good Anesthesia Complications:: None Swallowing reflex intact?: Yes Airway Patency: Patent Cyanosis?: No Blood Pressure: 95/61 SaO2: 97 Respiratory Rate: 18 Pulse Rate: 89 Temperature: 97.6 F Mental Status: Alert & Oriented Pain level:: 0 Nausea and/or vomitting:: None Intake, IV Amount: 0 Hydration: Adequate
[2024-01-27 14:05] VITALS: BP 95/61; PULSE 89; RESP 18; TEMP 36.4; O2SAT 97
--- NOTE | 2024-01-28 14:04 | CARE MANAGER ---
Contacted patient related to hospital discharge. She states she is not doing well. She is feeling sick every time she gets up. Her has contacted Yessy Copeland to see what to do. She is aware of follow up appointments and denies any other questions. PRECIOUS Mcintosh
== END 2024-01-27 11:00 | disposition home health service (06) ==
LOC: 2ND 09:40 → OB 18:29
PROVIDERS: Admitting Provider Orthopaedic Surgery; PCP Nurse Practitioner Family; Visit Provider Orthopaedic Surgery
PROC: (CPT 27447; principal; 2024-01-26 07:30)
DX: M17.12 Unilateral primary osteoarthritis, left knee (principal); E78.2 Mixed hyperlipidemia; Z87.891 Personal history of nicotine dependence; I25.10 Atherosclerotic heart disease of native coronary artery without angina pectoris; M25.562 Pain in left knee
CPT/HCPCS: 27447; 36415; 73560; 80048; 85025; 96374; 97162; 97165; 97530; 97535; C1776; G0378; J2405

== ENCOUNTER 2024-02-02 15:11 | Outpatient (CLI) | payer MEDICARE, BC, SELFPAY ==
--- NOTE | 2024-02-02 15:15 | CA_ITS ---
FINAL REPORT TECHNIQUE: Color Doppler, duplex Doppler and compression sonography of the left lower extremity deep venous systems was performed. CLINICAL HISTORY: REDNESS AND PAIN LT KNEE,S/P LEFT KNEE REPLACEMENT LAST WEEK COMPARISON: None FINDINGS: There is no evidence of deep venous thrombosis from the level of the groin to the calf. The veins are patent and compressible. IMPRESSION: No evidence of deep venous thrombosis left lower extremity. Reviewed, Interpreted and Dictated by Phil Bocanegra III, MD Transcribed by Belkys Garcia Authenticated and . [facility]
== END 2024-02-02 23:59 ==
LOC: RT 15:12
PROVIDERS: PCP Nurse Practitioner Family; Visit Provider Nurse Practitioner Family
DX: M79.605 Pain in left leg (principal); M79.89 Other specified soft tissue disorders; Z96.652 Presence of left artificial knee joint
CPT/HCPCS: 93971

== ENCOUNTER 2024-02-17 09:45 | Outpatient (CLI) | payer MEDICARE, BC, SELFPAY ==
--- NOTE | 2024-02-17 09:52 | XR_ITS ---
FINAL REPORT CLINICAL HISTORY: Left knee pain COMPARISON: 01/26/2024 FINDINGS: Left knee Three views were obtained. There is no acute fracture or dislocation. Patient is status post left knee arthroplasty. Moderate joint effusion is identified. IMPRESSION: Moderate joint effusion. Reviewed, Interpreted and Dictated by Phil Bocanegra III, MD Transcribed by Margaret Patel Authenticated and [facility]
== END 2024-02-17 23:59 ==
PROVIDERS: PCP Nurse Practitioner Family; Visit Provider Orthopaedic Surgery
DX: M25.562 Pain in left knee (principal)
CPT/HCPCS: 73562

== ENCOUNTER 2024-04-01 09:21 | Outpatient (CLI) | payer MEDICARE, BC, SELFPAY ==
--- NOTE | 2024-04-01 09:24 | XR_ITS ---
FINAL REPORT CLINICAL HISTORY: lt knee pain COMPARISON: 02/17/2024 FINDINGS: Left knee Three views were obtained. There is no acute fracture or dislocation. Patient is status post knee arthroplasty. No soft tissue abnormality is identified. IMPRESSION: No acute process. Reviewed, Interpreted and Dictated by Phil Bocanegra III, MD Transcribed by Margaret Patel Authenticated and [facility]
== END 2024-04-01 23:59 | disposition home or self-care (01) ==
LOC: RAD 09:22
PROVIDERS: PCP Nurse Practitioner Family; Visit Provider Orthopaedic Surgery
DX: M25.562 Pain in left knee (principal)
CPT/HCPCS: 73562

== ENCOUNTER 2024-04-20 13:00 | Outpatient (RCR) | payer MEDICARE, BC, SELFPAY ==
--- NOTE | 2024-02-24 12:06 | HMH.PTOPEV ---
PT Outpatient Evaluation Rehab PT Outpatient Evaluation Start: 02/24/24 11:34 Freq: Status: Active Protocol: Document 02/24/24 11:34 CITLALY (Rec: 02/24/24 12:06 CITLALY [id number]) E-signed By Barber Mao, PT Outpatient Therapy Subjective History Subjective History Pt presents s/p left TKA sx. on 01/26/24. Pt reports medial aspect left pain and intermittent episodes of left knee buckling since sx. Pt reports HHPT 'has proven to improve my motion and strength .' Pt reports h/o chronic right shoulder pain for ~1-2 yrs. pt reports possible h/o RTC damage, reports inability to reach and lift w/RUE away from body. Pt reports right shoulder pain is global in nature and refers pain down RUE to elbow region. New diagnosis of cancer in past 12 No months? Chief Complaint Pain,Stiff,Gives out/Unstable, Weakness Symptom Type Ache,Sharp,Dull,Stabbing Symptoms Relieved By Rest/Positioning,Heat,Ice,OTC Meds,Prescription Meds Symptoms Aggravated By Standing,Physical Activity, Walking,Lifting Prior Functional Limitations Reaching,Lifting,Housework, Standing,Walking Current Functional Limitations Reaching,Lifting,Housework, Standing,Walking Symptom Description Constant but Variable Level of pain today (0-10) 5 Pain scale - at its best (0-10) 5 Pain scale - at its worst (0-10) 9 Shoulder/Elbow Eval Shoulder Objective Measurements Palpation Tenderness tenderness over the bicipital tendon right shoulder exam standard tenderness over the SA bursa shoulder right exam standard Shoulder Palpation Findings Tenderness Shoulder Palpation Overall Comment 3/4 ant. RTC, 3/4 post. RTC, 3 /4 LHB Shoulder ROM Right Shoulder Abduction Active Range of 0-50 Motion (degrees) Shoulder Abduction Passive Range of 0-135 Motion (degrees) Shoulder Flexion Active Range of Motion 0-35 (degrees) Query Text: Shoulder Flexion Passive Range of Motion 0-150 (degrees) Shoulder External Rotation Passive Range 0-80 of Motion (degrees) Shoulder Internal Rotation Passive Range 0-80 of Motion (degrees) Shoulder MMT Shoulder Abduction Strength Grade 3- Fair- Shoulder Flexion Strength Grade 3- Fair- Shoulder External Rotation Strength 3- Fair- Grade Shoulder Internal Rotation Strength 3- Fair- Grade Shoulder Special Tests Shoulder Empty Can (Supraspinatus) Test Positive Right Shoulder [place] Impingement Positive Right Test Shoulder Neer Impingement Test Positive Right Elbow Objective Measurements Hip/Knee Eval Gait Observation General Gait Pattern Observation Antalgic Gait Assistive Device Assistive Devices Rolling / Wheeled Walker Palpation Tenderness left Knee Palpation Finding Tenderness Knee Palpation Overall Comment 2-3/4 medial jt line, 1/4 lateral jt line MMT Hip Flexion Strength Grade 4- Good- Hip Abduction Strength Grade 4- Good- Hip Adduction Strength Grade 4 Good Knee Extension Strength Grade 4- Good- Knee Flexion Strength Grade 4- Good- ROM Knee Flexion Active Range of Motion ( 15-95 degrees) Knee Flexion Passive Range of Motion ( 0-110 degrees) Lower Extremity Functional Index Activities Today, do you or would you have any difficulty at all with: a.Any of your usual work, housework or Moderate difficulty school activities b. Your usual hobbies, recreational or Moderate difficulty sporting activities c. Getting into or out of the bath A little bit of difficulty d. Walking between rooms Moderate difficulty e. Putting on your shoes or socks Moderate difficulty f. Squatting Quite a bit of difficulty g. Lifting an object, like a bag of Moderate difficulty groceries from the floor h. Performing light activities around Moderate difficulty your home i. Performing heavy activities around Moderate difficulty your home j. Getting into or out of a car Moderate difficulty k. Walking 2 blocks Extreme difficulty or unable to perform activity l. Walking a mile Extreme difficulty or unable to perform activity m. Going up or down 10 stairs (about 1 Extreme difficulty or unable flight of stairs) to perform activity n. Standing for 1 hour Extreme difficulty or unable to perform activity o. Sitting for 1 hour A little bit of difficulty p. Running on even ground Extreme difficulty or unable to perform activity q. Running on uneven ground Extreme difficulty or unable to perform activity r. Making sharp turns while running fast Extreme difficulty or unable to perform activity s. Hopping Extreme difficulty or unable to perform activity t. Rolling over in bed Extreme difficulty or unable to perform activity LEFI Score Lower Extremity Functional Index Score 23 Outpatient Therapy Assessment Impairments Problems/Impairmments Palpation Tenderness,Impaired Range of Motion,Impaired Strength,Impaired Gait Pattern ,Impaired Walking,Impaired Standing,Impaired Lifting, Impaired Household Care, Subjective C/O Pain,Impaired Self Care/Self Management Prognosis Rehab Potential Good Clinical Impression Consistent with Diagnosis Yes Short Term Goals Number of Weeks 4 Decreased Palpation Tenderness Yes: 1-2/4 left knee and right shoulder Increase Range of Motion Yes: 50-75% of WFL PROM R SH, 0-115-120 LEFT KNEE AROM Increase Strength Yes: 4/5 LEFT LE MM, 3/4 R UE MM Improve Gait Pattern with Assistive Yes: WFL W/RW,QC Device Increase Ability to Walk Yes: 20MIN Increase Ability to Stand Yes: 20MIN Improve Ability For Household Care Yes: 20MIN Improve LEFI Score Yes: 35-40 Decrease Subjective C/O Pain Yes: 3-5/10 W/ABOVE ACTIVITIES Patient to be Ind w/ HEP Yes Lugger Goals Number of Weeks 10-12 Decreased Palpation Tenderness Yes: 0-1/4 LEFT KNEE AND RIGHT SHOULDER Increase Range of Motion Yes: WFL LEFT KNEE AROM, RIGHT SHOULDER 80-90% OF WFL AROM Increase Strength Yes: 4-4+/5 RUE AND LLE Improve Gait Pattern without Assistive Yes: WFL ON LEVEL TERRAIN Device Increase Ability to Walk Yes: 30MIN Increase Ability to Stand Yes: 30MIN Restore Ability to Lift Objects to Waist Yes: 10# RUE Level Restore Ability to Lift Objects to Yes: 1-2# RUE Shoulder Level Restore Ability to Lift Objects Overhead Yes: 1-2# RUE Improve Ability For Household Care Yes: 30MIN Improve LEFI Score Yes: 45-50 Decrease Subjective C/O Pain Yes: 0-2/10 RUE AND LLE W/ ABOVE ACTIVITIES Patient to be Ind w/ Advanced HEP Yes Outpatient Therapy Plan of Care Treatment Plan May Include Therapeutic Exercise Including Home Yes Exercise Program Manual Therapy Techniques Yes Neuromuscular Re-education Yes Therapeutic Activities to Return to Yes Previous Functional/Work Level Gait Training Yes ADL/Self Care Education Yes Dry Needling Yes Thermal Modalities Yes Electrical Stimulation Yes Ultrasound/Phonophoresis Yes Iontophoresis Yes Vasopneumatic Compression Pump Yes Eval/Re-Eval Yes Frequency Times per week 2-3 Duration Number of Weeks 10-12 Addendums This patient is a candidate for social No or vocational rehab? Patient/Guardian verbally acknowledges Yes understanding of treatment program and consents to further treatment? Patient/Guardian verbally acknowledges Yes understanding of diagnosis, prognosis and goals for treatment? Eval Complexity PT Charges 96541 - High Complexity PHYSICIAN CERTIFICATION: I certify the specified therapy services for Allyson Guerrero Drake are required, authorized, and reviewed every 30 days.
--- NOTE | 2024-03-24 09:55 | HMH.RHREAS ---
Rehab Reassessment Rehab OP Re-assessment Start: 02/24/24 11:34 Freq: Status: Active Protocol: Document 03/24/24 08:00 [email or web address] (Rec: 03/24/24 09:55 CITLALY [id number]) E-signed By Barber Mao, PT Rehab Re-assessment Subjective Subjective Pt reports 5-6/10 right shoulder pain, and 2/10 left knee pain on VAS this am. Pt reports continued left instability intermittently, and reports ongoing lateral aspect left knee swelling. Objective Objective Notes AROM: LEFT KNEE FLX 0-121 PROM: RIGHT SHOULDER SCAPTION 0-145 AROM: RIGHT SHOULDER FLX 0-35, ABD 0-45 (HIKING W/BOTH DIRECTIONS) MMT: LEFT KNEE FLX 4/5, L KNEE EXT 4-4+/5, L HIP FLX 4/5, L HIP IR 4-/5 W/PAIN LATERAL JT LINE, L HIP ER 4-4+/5, L HIP ABD 4--4/5, L HIP ADD 4/5, L HIP EXT 4--4/5 RIGHT SHOULDER FLX,ABD 3-/5 TTP: LEFT KNEE LATERAL JT LINE /LCL 3/4, RIGHT SHOULDER ANT RTC AND POST RTC 3/4 Assessment Progress Assessment Slower Than Expected Assessment Notes RIGHT SHOULDER W/VERY LIMITED OBJECTIVE PROGRESS, AND LEFT KNEE HOWEVER, EXHIBITS IMPROVED AROM, AND STRENGTH, BUT LATERAL INSTABILITY (SEE PREVIOUS SOAP NOTE) WILL STILL NEED TO BE ADDRESSED BY ORTHO MD Patient goals met STG'S 03/25 Goals Not Met STG'S 03/25, LTG'S Plan Plan Pt to continue w/skilled P.T. to make further improvements in left knee and right shoulder ROM, strength, and TTP to allow for optimal function Frequency of Therapy 1-2x/wk Duration of therapy 6-8 wks Time and Billing Re-Eval Time 14 Re-Eval Billing Units 0 PHYSICIAN CERTIFICATION: I certify the specified therapy services for Allyson Juan are required, authorized, and reviewed every 30 days.
== END 2024-04-20 14:00 | disposition home or self-care (01) ==
LOC: PT 13:00
PROVIDERS: Visit Provider Orthopaedic Surgery
DX: M25.562 Pain in left knee (principal); Z96.652 Presence of left artificial knee joint
CPT/HCPCS: 97010; 97014; 97016; 97110; 97140; 97163; 97164; 97530; G0283

== ENCOUNTER 2024-05-27 08:55 | Outpatient (CLI) | payer MEDICARE, BC, SELFPAY ==
[2024-05-27] MEDS: INCLISIRAN SODIUM 284 MG/1.5 ML SYRINGE SQ (09:08)
[2024-05-27 09:11] VITALS: BP 131/80; PULSE 62; RESP 18; O2SAT 99
== END 2024-05-27 09:11 | disposition home or self-care (01) ==
LOC: INF 08:56
PROVIDERS: PCP Nurse Practitioner Family; Visit Provider Physician Assistant
DX: E78.5 Hyperlipidemia, unspecified (principal); Z79.899 Other long term (current) drug therapy
CPT/HCPCS: 96372; J1306

== ENCOUNTER 2024-07-05 10:29 | Outpatient (CLI) | payer MEDICARE, BC, SELFPAY ==
[2024-07-05 10:48] LABS: Basophils # 0.1 K/mm3 (0-0.2); Basophils % 1.3 % (0.1-2.0); Eosinophils # 0.1 K/mm3 (0.0-0.4); Eosinophils % 1.2 % (0.1-12.0); Hematocrit 49.9 % (37.0-47.0); Hemoglobin 15.9 g/dL (12.2-16.2); Lymphocytes # 2.5 K/mm3 (0.7-4.5); Mean Corpuscular HGB Conc 31.8 g/dL (31.8-35.4); Mean Corpuscular Hemoglobin 31.5 pg (27.0-31.2); Mean Corpuscular Volume 99.2 fl (81-99); Mean Platelet Volume 10.2 fl (7.4-10.4); Monocytes # 0.5 K/mm3 (0.1-1.0); Monocytes % 5.2 % (1.7-9.3); Neutrophils # 5.5 K/mm3 (1.8-7.8); Neutrophils % 63.3 % (37.0-80.0); Platelet Count 293 K/mm3 (142-424); Red Blood Count 5.04 M/mm3 (4.20-5.40); Red Cell Distribution Width 14.1 % (11.5-17.5); White Blood Count 8.7 K/mm3 (4.8-10.8)
[2024-07-05 11:07] LABS: Alanine Aminotransferase 58 U/L (12-78); Albumin Level 4.2 g/dl (3.5-5.0); Alkaline Phosphatase 144 U/L (38-126); Anion Gap 11.5 mEq/L (5-15); Aspartate Amino Transferase 64 U/L (14-36); Bilirubin,Indirect 0.9 mg/dL (0.0-0.9); Bilirubin,Total 0.9 mg/dl (0.2-1.3); Bilirubin,Unconjugated 0.9 mg/dL (0.0-1.1); Blood Urea Nitrogen 15 mg/dl (7-17); Carbon Dioxide 26 mmol/L (22.0-30.0); Chloride 108 mmol/L (98-107); Cholesterol 160 mg/dl (140-200); Estimated Glomerular Filt Rate 83 ml/min (>60); GFR (African American) 101 ML/MIN (>60); Glucose 101 mg/dl (74-100); HDL Cholesterol 53 mg/dl (40-60); Magnesium 2.1 mg/dl (1.6-2.3); Potassium 4.5 mmoL/L (3.5-5.1); Sodium 141 mmol/L (136-145); Total Protein,Serum 7.3 g/dl (6.3-8.2); Triglycerides 121 mg/dl (30-150); VLDL Cholesterol 24 mg/dL (0-40)
[2024-07-05 11:18] LABS: Direct LDL Cholesterol 78.15 mg/dL (100-129)
[2024-07-05 11:22] LABS: Free T4 (Free Thyroxine) 1.25 ng/dl (0.78-2.19)
[2024-07-05 11:37] LABS: Thyroid Stimulating Hormone 1.89 uIU/mL (0.465-4.68)
== END 2024-07-05 23:59 | disposition home or self-care (01) ==
LOC: LAB 10:30
PROVIDERS: PCP Nurse Practitioner Family; Visit Provider Nurse Practitioner
DX: E78.2 Mixed hyperlipidemia (principal); I25.10 Atherosclerotic heart disease of native coronary artery without angina pectoris; I49.1 Atrial premature depolarization; Z87.891 Personal history of nicotine dependence
CPT/HCPCS: 36415; 80048; 80061; 80076; 83735; 84439; 84443; 85025

== ENCOUNTER 2024-09-08 08:50 | Outpatient (CLI) | payer MEDICARE, BC, SELFPAY ==
--- NOTE | 2024-09-08 08:53 | XR_ITS ---
FINAL REPORT CLINICAL HISTORY: SCREENING COMPARISON: None FINDINGS: Using L1-4, the bone mineral density of the spine is 1.038 g/cm2, corresponding to T-score of -0.1 which is within normal limits but likely falsely elevated secondary to hypertrophic changes. Using the left hip, the bone mineral density of the femoral neck is 0.564 g/cm2, corresponding to a T-score of -2.6 which is consistent with osteoporosis. Using the right hip, the bone mineral density of the femoral neck is 0.673 g/cm2, corresponding to a T-score of -1.6 which is consistent with low bone density. FRAX not reported because some T-score at or below -2.5 and the patient is being treated for osteoporosis. NOTE: T-score: Standard deviation compared with peak bone mass of young adult mean. *Following the recommendations of the International Society of Bone densitometry, classification of hip BMD is based on the lower of two T-scores; total hip or femoral neck. IMPRESSION: Diminished bone mineral density consistent with osteoporosis. Reviewed, Interpreted and Dictated by Phil Bocanegra III, MD Transcribed by Nighat Isaac Authenticated and [facility]
== END 2024-09-08 23:59 | disposition home or self-care (01) ==
LOC: RAD 08:50
PROVIDERS: PCP Nurse Practitioner Family; Visit Provider Nurse Practitioner Family
DX: Z78.0 Asymptomatic menopausal state (principal)
CPT/HCPCS: 77080

== ENCOUNTER 2024-10-21 09:27 | Outpatient (CLI) | payer MEDICARE, BC, SELFPAY ==
[2024-10-21 09:40] VITALS: BP 117/71; PULSE 74; RESP 20; TEMP 36.7; O2SAT 98
[2024-10-21] MEDS: DENOSUMAB 60 MG/ML SYRINGE SUBCUT (09:40)
== END 2024-10-21 10:00 | disposition home or self-care (01) ==
LOC: INF 09:29
PROVIDERS: PCP Nurse Practitioner Family; Visit Provider Nurse Practitioner Family
DX: M81.0 Age-related osteoporosis without current pathological fracture (principal)
CPT/HCPCS: 96372; J0897

== ENCOUNTER 2024-11-28 08:42 | Outpatient (CLI) | payer MEDICARE, BC, SELFPAY ==
[2024-11-28] MEDS: INCLISIRAN SODIUM 284 MG/1.5 ML SYRINGE SUBCUT (08:58)
[2024-11-28 09:00] VITALS: BP 138/68; PULSE 68; RESP 18; O2SAT 97
== END 2024-11-28 09:00 | disposition home or self-care (01) ==
LOC: INF 08:45
PROVIDERS: PCP Nurse Practitioner Family; Visit Provider Nurse Practitioner
DX: E78.5 Hyperlipidemia, unspecified (principal)
CPT/HCPCS: 96372; J1306

== ENCOUNTER 2025-01-12 08:30 | Day surgery (SDC) | payer MEDICARE, BC, SELFPAY ==
[2025-01-10 13:39] VITALS: BMI 29.3
[2025-01-12 08:52] VITALS: BP 133/86; PULSE 79; RESP 18; TEMP 36.3; O2SAT 98
[2025-01-12] MEDS: LACTATED RINGERS 1000ML 1,000 ML 50 ML IV (08:58)
--- NOTE | 2025-01-12 09:25 | P.PNANES_ITS ---
[facility] Disclaimer: The information contained in this section may have been updated after the patient was seen, as this information can be updated by other users. Medical History Encounter for pre-operative cardiovascular clearance Hx of myocardial infarction ST elevation myocardial infarction (STEMI) History of left heart catheterization (LHC) Palpitations Tachycardia Claudication Chest pain HLD (hyperlipidemia) Tobacco dependence syndrome CAD (coronary artery disease) Dyspnea Surgical History History of arthroscopic knee surgery History of heart artery stent Family History Other Family history of cancer Family history of heart disease Social History Smoking Status: Former smoker tobacco type: cigarettes packs per day: 1 alcohol intake: never substance use type: denies use current occupational status: retired Travel in the last 8 weeks: None caffeine: Yes Have you lived/traveled outside US in past 30 days?: No Contact w/someone who lives/traveled outside US past 30 days?: No Exposure to someone with infectious disease in past 14 days?: No Do you have a fever (greater than 100.4 F or 38 C)?: No Have you tested positive for COVID-19: No Exposed to someone with COVID-19 in past 14 days?: No Do you have a sore throat?: No Do you have a cough?: No Do you have any weakness?: No Do you have any diarrhea?: No Are you experiencing any unusual bleeding?: No Do you have any muscle aches/pain?: No Do you have any abdominal pain?: No Are you experiencing loss of taste or smell?: No [facility] Anesthesia Checklist Patient Identification Patient Identification: Verbal (Name & ) Structural Data Admitted From: Home Planned Operative Procedure/s: colonoscopy Consent for Planned Operative Procedure(s) Verified: Yes NPO Status Verified Time NPO: 00:00 Additional verifications Anesthesia Reactions: No Hx Blood Transfusions: No Blood Transfusion Reaction: No Airway Assessment Mallampati Score:: Class II C-Spine Mobility Assessed: Yes TMJ Mobility Assessed: Yes Dentition: Good Dentition Neurological Assessment Level of Consciousness: Awake, Alert and Appropriate Anesthesia Plan Anesthesia Risk discussed: Yes Anesthesia Plan: Verified ASA Class: II Anesthesia Type: MAC
--- NOTE | 2025-01-12 09:30 | EXP.HP ---
History of Present Illness *Admission Date: 01/12/25 *Reason for visit:: Positive Cologuard *History of present illness: Mrs. Juan is a 69-year-old female who is here for positive Cologuard. The examination is deemed medically necessary for screening colonoscopy. The patient has been seen, interviewed and examined prior to the procedure by both myself and the anesthesia provider. [facility] Disclaimer: The information contained in this section may have been updated after the patient was seen, as this information can be updated by other users. Medical History (Updated 01/12/25 @ 09:38 by Shashi Mazariegos II, MD) Encounter for pre-operative cardiovascular clearance Hx of myocardial infarction ST elevation myocardial infarction (STEMI) History of left heart catheterization (LHC) Palpitations Tachycardia Claudication Chest pain HLD (hyperlipidemia) Tobacco dependence syndrome CAD (coronary artery disease) Dyspnea Surgical History History of arthroscopic knee surgery History of heart artery stent Family History Other Family history of cancer Family history of heart disease Social History Smoking Status: Former smoker tobacco type: cigarettes packs per day: 1 alcohol intake: never substance use type: denies use current occupational status: retired Travel in the last 8 weeks: None caffeine: Yes Have you lived/traveled outside US in past 30 days?: No Contact w/someone who lives/traveled outside US past 30 days?: No Exposure to someone with infectious disease in past 14 days?: No Do you have a fever (greater than 100.4 F or 38 C)?: No Have you tested positive for COVID-19: No Exposed to someone with COVID-19 in past 14 days?: No Do you have a sore throat?: No Do you have a cough?: No Do you have any weakness?: No Do you have any diarrhea?: No Are you experiencing any unusual bleeding?: No Do you have any muscle aches/pain?: No Do you have any abdominal pain?: No Are you experiencing loss of taste or smell?: No Other Medical History Have you received the Flu Vaccine for this season: No Have you received the Pneumonia Vaccine: Yes Review of Systems Review of Systems Review of systems (narrative): Negative *Cardiovascular Comments: Negative *Gastrointestinal Comments: Negative *Genitourinary Comments: Negative *Musculoskeletal Comments: Negative *Neurologic Comments: Negative Meds Home Medications and Allergies Home Medications ?Medication ?Instructions ?Recorded ?Confirmed ?Type aspirin 81 mg tablet,delayed 81 mg PO DAILY heart preventative 05/26/23 01/10/25 History release acetaminophen 325 mg tablet 650 mg (2 x 325 mg) PO Q4HP PRN 01/27/24 01/10/25 Rx Fever Or Mild Pain (1-3) #0 tabs denosumab 60 mg/mL subcutaneous 60 mg SQ DIRECTED bones 10/21/24 01/10/25 History syringe (Prolia) inclisiran 284 mg/1.5 mL 284 mg (1.5 mL) SQ [id number] 11/25/24 01/10/25 Rx subcutaneous syringe (Leqvio) Cholesterol #1.5 mL New Prescriptions to Start Prescriptions: Allergies Allergy/AdvReac Type Severity Reaction Status Date / Time rosuvastatin (From Crestor) Allergy Muscle Pain Verified 01/12/25 08:49 atorvastatin AdvReac Severe Muscle Pain Verified 01/12/25 08:49 evolocumab (From Repatha AdvReac Intermediate myalgia Verified 01/12/25 08:49 SureClick) pitavastatin (From Livalo) AdvReac Mild myalgia Verified 01/12/25 08:49 metoprolol AdvReac Dizziness, Verified 01/12/25 08:49 dropped hr Exam Data for Last 24 hours Vital signs and Labs for Last 24 Hours: Temp Pulse Resp BP Pulse Ox O2 Del Method 97.4 F L 79 18 133/86 98 Room Air 01/12/25 08:52 01/12/25 08:52 01/12/25 08:52 01/12/25 08:52 01/12/25 08:52 01/12/25 08:52 I & O for Last 24 hours: Intake & Output 01/09/25 01/10/25 01/11/25 01/12/25 23:59 23:59 23:59 23:59 Weight 193 lb *Routine HEENT Exam Head: Present normocephalic Eye: Present EOMI and PERRL ENT: Present mucous membranes moist *Routine Neck Exam Neck: Present supple *Routine Respiratory Exam Respiratory: Present CTA bilaterally *Routine Cardiovascular Exam Cardiovascular: Present RRR *Routine Abdominal Exam Abdominal: Present soft and normoactive bowel sounds; Absent tenderness *Routine Rectal Exam Rectal:: deferred *Routine Genitalia Exam Genitalia:: deferred *Routine Extremities Exam Extremities: Absent cyanosis, clubbing or edema *Routine Skin Exam Skin: Present warm; Absent rash *Routine Neurological Exam Neurological: Present alert and oriented X3 Assessment and Plan *Assessment and plan (1) Positive colorectal cancer screening using Cologuard test: Status: Acute Category: Medical Code(s): R19.5 - Other fecal abnormalities Plan A/P: 1. Positive Cologuard is the preprocedural diagnosis. The patient will be anesthetized/sedated using MAC sedation. The patient has been seen and examined. Cardiac and lung assessment prior to the examination is stable. Proceed with planned screening colonoscopy
[2025-01-12 09:33] VITALS: O2SAT 98
--- NOTE | 2025-01-12 09:38 | HMH.PROCNOTE ---
[facility] Procedure Note Date: 01/12/25 Time: 09:56 Procedure Note:: Colonoscopy Procedure Report: Colonoscopy with cold snare polypectomy Endoscopist: Shashi Mazariegos II, MD Referring physician: FORTINO Mireles Date of Procedure: January 12, 2025 Equipment: Olympus 190 variable stiffness pediatric colonoscope Sedation: MAC sedation Indication: Mrs. Juan is a 69-year-old female who is here for screening colonoscopy secondary to a positive Cologuard. This is her first colonoscopy. She reports no abdominal pain, weight loss, change in her bowel habits or rectal bleeding. She reports no family history of colon cancer. Procedure: Prior to the procedure, a history and physical exam was performed, and patient's medications and allergies were reviewed. The risks, benefits and alternatives of the sedation and procedure were discussed with the patient. All questions were answered and informed consent was obtained. The patient was brought to the procedure room. Patient identification and proposed procedure were verified by the physician and the nurse. The patient was placed in a left lateral decubitus position and the scope was passed under direct vision. Throughout the procedure, the patient's blood pressure, pulse, and oxygen saturations were monitored continuously. The colonoscopy was accomplished without difficulty. The patient tolerated the procedure well. Findings: On digital rectal examination there was normal rectal tone. There were no external hemorrhoids. The colonoscope was introduced through the anal canal to the rectum and advanced to the cecum. The ileocecal valve and appendiceal orifice were identified. The scope was advanced a short distance into the ileum which appeared grossly normal. The scope was then withdrawn into the colon. There were 3 polyps (cecum x 1 (9 mm), ascending x 1 (8 mm) and sigmoid x 1 (4 mm)). These were all removed via cold snare polypectomy. The 2 polyps in the right colon had a mucus cap and are probable serrated adenomas. The remaining cecum, ascending and transverse colon and mucosa were grossly normal. There were a few scattered diverticuli throughout the descending and sigmoid colon (LEFT colon). The rectum itself was normal. Upon retroflexion within the rectum there were grade 1-2 internal hemorrhoids. The preparation was excellent throughout with [place] Preparation Score of 9. The cecal time was 12 minutes. Impression: 1. Colonic polyps x 3 2. Left-sided diverticulosis 3. Grade 1-2 internal hemorrhoids Plan: I will follow-up the polyp histology and recommend repeat surveillance colonoscopy again in 5 years based upon the pathology. I would encourage psyllium bulking fiber supplementation on a long-term daily maintenance basis.
[2025-01-12 10:00] VITALS: BP 92/69; PULSE 89; RESP 18; TEMP 36.2; O2SAT 95
[2025-01-12 10:10] VITALS: BP 95/64; PULSE 81; RESP 18; O2SAT 98
[2025-01-12 10:20] VITALS: BP 104/60; PULSE 79; RESP 18; O2SAT 98
[2025-01-12 10:48] VITALS: BP 104/49; PULSE 77; RESP 18; O2SAT 97
== END 2025-01-12 10:48 | disposition home or self-care (01) ==
PROVIDERS: PCP Nurse Practitioner Family; Visit Provider Internal Medicine Gastroenterology
PROC: 0DJD8ZZ Inspection of Lower Intestinal Tract, Via Natural or Artificial Opening Endoscopic (ICD-10-PCS; CPT 45378; principal; 2025-01-12 10:00)
DX: K63.5 Polyp of colon (principal); K57.30 Diverticulosis of large intestine without perforation or abscess without bleeding; K64.8 Other hemorrhoids; R19.5 Other fecal abnormalities
CPT/HCPCS: 45385; J7120

== ENCOUNTER 2025-01-16 09:10 | Outpatient (CLI) | payer MEDICARE, BC, SELFPAY ==
--- NOTE | 2025-01-16 09:12 | CA_ITS ---
APPROVED REPORT EXAM: Comprehensive 2D, Doppler, and color-flow Echocardiogram Crystal Growing Technician: Baylee Lopez RT(R) Ht: 5 ft 8 in Wt: 193lbs BSA: 2.01 BP: 130/87 mmHg Indications: CAD, ex smoker quit 2020, palpitations, hx [place]. TDE due to lung impedence. 2D Dimensions EF AP4 53.10 % GL Strain -13.0 % M-Mode Dimensions RVDd 3.19 cm (0.9-2.6) LA Diam 2.59 cm (1.9-4.0) LVDd 3.61 cm (3.5-5.7) LVDs 2.77 cm (3.5-5.7) IVSd 0.57 cm (0.6-1.1) PWd 0.72 cm (0.6-1.1) EF (Teich) 47.40% FS 23.30% EDV (Teich) 54.80 mL TAPSE 1.66 (<1.7) ESV (Teich) 28.80 mL LV Diastology E Decel Time 463 (160-240 msec) E/A Ratio 0.56 Mitral Valve MV A Velocity 91.0 (40-130 cm/s) E/A Ratio 0.56 Tricuspid Valve TR P. Velocity 194.00 cm/s RAP Estimate 10.00 mmHg RVSP 25.10 mmHg Left Ventricle The left ventricle is normal size. The left ventricular systolic function is normal. The left ventricular ejection fraction is within the normal range. There is increased LV wall thickness. There is normal LV segmental wall motion. Transmitral Doppler flow pattern suggests impaired LV relaxation. LVEF is 60%. Right Ventricle The right ventricle is normal size. The right ventricular systolic function is normal. Atria The left atrium size is normal. The right atrium size is normal. There is no Doppler evidence of interatrial shunt. Aortic Valve The aortic valve opens well. There is no aortic valvular stenosis. No aortic regurgitation is present. Mitral Valve The mitral valve is normal in structure. No evidence of mitral valve stenosis. There is no mitral valve regurgitation noted. Tricuspid Valve Tricuspid valve is grossly normal in structure and function. Trace tricuspid regurgitation. There is insufficient TR jet to estimate RVSP. Pulmonic Valve The pulmonary valve is normal in structure. Trace pulmonic regurgitation. Great Vessels The aortic root is normal in size. IVC is normal in size and collapses >50% with inspiration. Pericardium There is no pericardial effusion. Other Information Study Quality: Fair Conclusion Normal biventricular systolic function. No significant valvular stenosis or regurgitation. Electronically signed by : Ade Davila MD 01/24/2025 10:21:23
== END 2025-01-16 23:59 | disposition home or self-care (01) ==
LOC: RT 09:10
PROVIDERS: PCP Nurse Practitioner Family; Visit Provider Nurse Practitioner
DX: Z01.810 Encounter for preprocedural cardiovascular examination (principal); I25.10 Atherosclerotic heart disease of native coronary artery without angina pectoris; I49.1 Atrial premature depolarization; E78.2 Mixed hyperlipidemia; I25.2 Old myocardial infarction
CPT/HCPCS: 93306

== ENCOUNTER 2025-04-24 09:19 | Outpatient (CLI) | payer MEDICARE, BC, SELFPAY ==
--- OUTSIDE RECORDS SUMMARY | 2025-04-24 09:25 | XMS_ITS | Encounter Summary ---
Author Organization [employer] Address [address] [place] [address] Care Team Providers Care Hospital Coordinator Name Role Phone Unavailable Primary Care Provider Unavailabl e Encounter Details Date Type Department Care Team (Late st Contact Info) Description 03/01/2019 Transcribed Document [facility] [address] [place] [address] Provider, Cristian Ashraf MD Social History Tobacco Use Types Packs/Day Years Used Date Smoking Tobacco: Never Assessed Comments Unknown Sex and Gender Information Value Date Recorded Sex Assigned at Female 05/13/2022 8:28 PM CDT Legal Sex Female 8:28 PM CDT Gender Identity Female 05/13/2022 8:28 PM CDT Sexual Orientation Not on file documented as of this encounter Miscellaneous Notes * Cerner Conversion Note - [facility] Pascale ProviderMD - 03/01/2019 12:29 PM EDT Pre Procedure Adult Entered On: 03/01/2019 11:33 EDT Performed On: 03/01/2019 11:29 EDT by Teressa Mejia Rn Height and Weight, Clinical Dosing Height Source : Stated Height Entry Format : [place] Height, Feet : 5 ft(Converted to: 152 cm, 60 Inch) Height, Inches : 8 Inch(Converted to: 0 ft 8 Inch, 20.32 cm) Clinical Height : 172.72 cm Weight Source : Standing scale Weight Entry Format : [place] Clinical Dosing Weight : 81.36 kg Weight, Pounds : 179 lb Body Surface Area (BSA) : 1.95 m2 Body Mass Index : 27.3 kg/m2 (HI) [place] Body Weight : 63 kg Teressa Mejia Rn - 03/01/2019 11:29 EDT Health Histories Smoking Status : 5-9 cigarettes (between 1/4 to 1/2 pack)/day in last 30 days Smokeless Tobacco Status : Never Desires Tobacco Cessation Medication : No Reason for No Tobacco Cessation Medication : Refuses FDA approved medications Implant/Device Type, Silver Buffer and Model : none Teressa Mejia Rn - 03/01/2019 11:29 EDT Social History (As Of: 03/01/2019 11:34:00 EDT) Tobacco: 5-9 cigarettes (between 1/4 to 1/2 pack)/day in last 30 days Smoking Status. Never Smokeless Tobacco Status. (Last Updated: 02/01/2019 11:11:34 EDT by Maryan Slater RN) Infectious Disease History Infectious Disease History : Chicken pox/Shingles, Measles, Mumps Fever/Chills Last 48 Hours : No Travel To Regions with Travel Advisories : No Travel Outside [place] Within Last 30 Days : No Contact With Traveler to Advisory Region : No Tuberculosis Symptoms : None Teressa Mejia Rn - 03/01/2019 11:29 EDT Anesthesia/Transfusion History Family History of Anesthesia Reaction : No prior transfusion(s) Transfusion History : Prior anesthesia without reaction Family History of Anesthesia Reaction : None Teressa Mejia Rn - 03/01/2019 11:29 EDT Functional Assessment Living Situation : Home Patient Lives With : Spouse Persons Assisting Patient at Home : Spouse Current Daily Living Assistance : None Sensory Deficits : None Mobility Assistance Prior to Admission : Independent KATZ Hx Falls Immediate/Within 3 Months : No Current Home Treatments : None Professional Skilled Services : None Special Services and Community Resources : None Teressa Mejia Rn - 03/01/2019 11:29 EDT Psychosocial History Currently in Unsafe Situation : No Tried to Harm Yourself in the Past? : No Thoughts of Harming/Killing Yourself : No Teressa Mejia Rn - 03/01/2019 11:29 EDT Advance Directive Patient has Advance Directive *Q : No, patient refuses Advance Directive information Teressa Mejia Rn - 03/01/2019 11:29 EDT Spiritual/Cultural Needs Any Spiritual/Cultural Needs or Requests : No Latter Day Preference : Adventist Teressa Mejia Rn - 03/01/2019 11:29 EDT Teaching/Learning Assessment Barriers To Learning : None evident Individuals Taught : Patient Readiness to Learn : Cooperative Readiness to Learn : Explanation Learning Style Preferences Patient : None Teressa Mejia Rn - 03/01/2019 11:29 EDT Education Topics, Periop Preadmission Perioperative Education [place] : Verbalizes understanding Infection Control : Verbalizes understanding IV's : Verbalizes understanding NPO Status/Directions : Verbalizes understanding Pain Management : Verbalizes understanding Preprocedure Tests/Labs : Verbalizes understanding Responsible Adult : Verbalizes understanding Teressa Mejia Rn - 03/01/2019 11:29 EDT General Info Arrived From : Home Mode of Arrival on Unit : Ambulatory Patient Arrival Date/Time : 03/01/2019 11:05 EDT Legal Guardian : Spouse Want Family/Rep/Phys Notified of Admit : No Emergency Contact #1 : Darek Raymundo Emergency Contact #1 Emergency Contact #1 Relationship : spouse Emergency Contact #2 : . Emergency Contact #2 Phone Number : . Emergency Contact #2 Relationship : . Chief Complaint : none Information Obtained From : Patient Primary Language : Liberian Preferred Communication Mode : Verbal Communication Barrier : None Currently Lactating : No Teressa Mejia Rn - 03/01/2019 11:29 EDT Sleep Apnea Risk Assmt Hx of Obstructive Sleep Apnea Diagnosis : No Snore Loudly : No Tired, Fatigued, or Sleepy During Day : Yes Observed Stopping Breathing During Sleep : No Have/Are Being Treated for Hypertension : No BMI Greater Than 35 kg/m2 : No Age over 50 Years Old : Yes Neck Circumference Greater Than 40 cm : No Gender Male : No STOP-BANG Sleep Apnea Risk Level Score : 2 Teressa Mejia Rn - 03/01/2019 11:29 EDT Avery Scale Avery Sensory Perception : No impairment Avery Moisture : Rarely moist Avery Activity : Walks frequently Avery Mobility : No limitation Avery Nutrition : Adequate Avery Friction and Shear : No apparent problem Avery Score : 22 Teressa Mejia Rn - 03/01/2019 11:29 EDT Oxygen Therapy Oxygen Therapy Mode : Room air Teressa Mejia Rn - 03/01/2019 11:29 EDT Pain Assessment Pain Assessment : Initial assessment Pain Scale Goal : 4 Pain Scale Used : 0-10 Scale Teressa Mejia Rn - 03/01/2019 11:29 EDT Fall Risk Scales ABCs Fall Injury Risk Identification : None KATZ Hx Falls Immediate/Within 3 Months : No Katz Secondary Diagnosis : No KATZ Use of Ambulatory Aid : None KATZ IV Therapy or IV Access : Yes Katz Gait/Transferring : Normal, bedrest, immobile Katz Mental Status : Oriented to own ability Katz Fall Risk Score : 20 KATZ Fall Scale Risk Level : 0-24 Low Risk [place] Fall Interventions : Adequate lighting, Non-slip footwear, Personal items within reach, Room free of clutter/spills, Wheels locked Teressa Mejia Rn - 03/01/2019 11:29 EDT Fall Risk Education [place] light use : Verbalizes understanding Nonskid Footwear Use : Verbalizes understanding Teressa Mejia Rn - 03/01/2019 11:29 EDT Barriers to Learning : None evident Individuals Taught : Patient Readiness to Learn : Cooperative Teaching Method : Explanation Learning Style Preferences Patient : None Treessa Mejia Rn - 03/01/2019 11:29 EDT Valuables and Belongings Valuables and Belongings : Clothing Clothing : Common streetwear Clothing Disposition : With family Belongings Sent Home With : with Teressa Mejia Rn - 03/01/2019 11:29 EDT Pain Scale Intensity : 0 Teressa Mejia Rn - 03/01/2019 11:29 EDT Image 4 - Images currently included in the form version of this document have not been included in the text rendition version of the form. January Coma January Best Motor Response : Obey commands January Best Verbal Response : Oriented [place] Eye Opening Response : Spontaneous [place] Coma Score : 15 Teressa Mejia Rn - 03/01/2019 11:29 EDT documented in this encounter Plan of Treatment Not on file documented as of this encounter Visit Diagnoses Not on filedocumented in this encounter
--- OUTSIDE RECORDS SUMMARY | 2025-04-24 09:25 | XMS_ITS | Encounter Summary ---
Author Organization [email or web address] Address [address] [place] [address] Care Team Providers Care Associate Professor Of Library Media Name Role Phone Unavailable Primary Care Provider Unavailabl e Encounter Details Date Type Department Care Team (Late st Contact Info) Description 03/01/2019 Transcribed Document [facility] [address] [place] [address] Provider, Crsitian Ashraf MD Social History Tobacco Use Types Packs/Day Years Used Date Smoking Tobacco: Never Assessed Comments Unknown Sex and Gender Information Value Date Recorded Sex Assigned at Female 05/13/2022 8:28 PM CDT Legal Sex Female 8:28 PM CDT Gender Identity Female 05/13/2022 8:28 PM CDT Sexual Orientation Not on file documented as of this encounter Miscellaneous Notes * Cerner Conversion Note - [facility] Pascale ProviderMD - 03/01/2019 4:02 PM EDT [facility] PostOp Summary Primary Physician: LETICIA MART MD-ORT Finalized Date/Time: 03/01/19 17:00:12 Pt. Name: AUBREY JUAN /Sex: 1955 Female Med Rec #: [id number] Physician: LETICIA MART MD-ORT Financial #: [id number] Pt. Type: O Room/Bed: [facility]/ Admit/Disch: 03/01/19 04:54:00 - Institution: [facility] PostOp Case Times Entry 1 In PACU II 04/16/19 15:57:00 Ready for PACU II 03/01/19 17:00:00 Discharge Discharge from PACU 03/01/19 17:00:00 II Last Modified By: Ирина Cohen Rn 03/01/19 17:00:07 Finalized By: Ирина Cohen Rn Document Signatures Signed By: Ирина Cohen Rn 03/01/19 17:00 documented in this encounter Plan of Treatment Not on file documented as of this encounter Visit Diagnoses Not on filedocumented in this encounter
--- OUTSIDE RECORDS SUMMARY | 2025-04-24 09:25 | XMS_ITS | Encounter Summary ---
Author Organization [employer] [facility] Address [address] [place] [address] Care Team Providers Care Human Services Worker Name Role Phone Unavailable Primary Care Provider Unavailabl e Encounter Details Date Type Department Care Team (Late st Contact Info) Description 03/01/2019 Transcribed Document [facility] Radiology [address] [place] [address] Provider, Cristian Ashraf MD Social [...] Miscellaneous Notes * Cerner Conversion Note - [facility] Pascale ProviderMD - 03/01/2019 4:37 PM EDT DATE OF PROCEDURE: 03/01/2019 PREOPERATIVE DIAGNOSIS(ES): Left knee with lateral meniscal tear and chondromalacia. POSTOPERATIVE DIAGNOSIS(ES): 1. Anterior and posterior lateral meniscal tears. 2. 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 3. Grade 3-4 chondromalacia of lateral tibial plateau. PROCEDURE: Left knee arthroscopy with unicompartmental chondroplasty, partial lateral meniscectomy, and lateral meniscal repair. SURGEON: Kait Mcguire MD ANESTHESIA: LMA anesthesia. TOURNIQUET TIME: Left lower extremity tourniquet time was 21 minutes. IMPLANTS: Include one Fast-Fix meniscal anchor. COMPLICATIONS: None. SPECIMENS: None. INDICATIONS: This is a 63-year-old woman who has had increasing sharp pain over the last six months about her left knee. This has been localized to the lateral compartment. Her exam and MR were consistent with meniscal tear. She presents now for operative intervention via arthroscopy for treatment of meniscal tear. PROCEDURE IN DETAIL: After obtaining LMA anesthesia, time-out procedure was done identifying the patient and the left knee as the site of surgery. Initials placed preoperatively and consent form confirmed this. At this time, a pneumatic tourniquet cuff was placed on the left proximal thigh with arthroscopic leg solomon placed below. Left lower extremity was then prepped and draped from ankle to distal thigh in usual sterile fashion. A second time-out procedure was performed confirming the left knee as the site of surgery. We then exsanguinated the limb with an Esmarch bandage and inflated the tourniquet to 300 mmHg pressure. Anterior lateral and anteromedial portal was established. Initial evaluation revealed pristine patellofemoral articulation with thickened medial plica that was debrided back with shaver, and radiofrequency wand was used for cauterizing the debrided area. Patella tracked well through the trochlear groove. In the notch, ACL and PCL were intact. In the medial compartment, chondral surfaces were pristine with one small area on the anterior lateral surface of about 5 mm in diameter with a grade 2 chondral change. This was treated with gentle contouring radiofrequency wand. The medial meniscus was probed and found to be stable without evidence of injury. In the lateral compartment, there was a large radial beak oblique tear of the anterior lateral meniscus with cyclops type lesion that was abrading and irritating the anterior lateral fat pad and also the cartilage of the anterior lateral tibial plateau. Undermining flaps of this cartilage damage was debrided back to a stable rim. The central portion of this extended to the central weightbearing dome and was treated with chondroplasty with shaver followed by contouring the radiofrequency wand. The central portion of the lateral tibial plateau had punctate areas of grade 4. I began undermining grade 3 chondral injuries. There was a meniscal capsular junction tear of the posterior horn of the lateral meniscus that was treated with shaving on the tibial surface and passage of a Fast-Fix anchor in a horizontal mattress fashion with good stability. The popliteus and its hiatus were intact. We debrided back the meniscal tear of the anterior meniscus and to a stable rim of 60% in an area of 1.5 cm. The areas of debridement were contoured with radiofrequency wand. At this time, the tourniquet was deflated. We checked and obtained hemostasis throughout the knee with radiofrequency wand. The knee was drained of fluid. Portal sites were closed with 4-0 nylon suture. Steri-Strips were applied. A 5 mg of Duramorph and 5 mL of ropivacaine were injected into the knee for postoperative pain control. Soft dressing and Brandon wrap was applied. Patient was taken in stable extubated condition to the recovery room. Kait Mcguire M.D. Dict: 03/01/2019 15:37:50 Trans: 03/01/2019 20:03:50 CC1: Kait Mcguire M.D. documented in this encounter Plan of Treatment Not on file documented as of this encounter Visit Diagnoses Not on filedocumented in this encounter
--- OUTSIDE RECORDS SUMMARY | 2025-04-24 09:25 | XMS_ITS | Encounter Summary ---
Author Organization [facility] [facility] Address [address] [place] [address] Care Team Providers Care Alarm Service Technician Name Role Phone Unavailable Primary Care Provider Unavailabl e Encounter Details Date Type Department Care Team (Late st Contact Info) Description 03/01/2019 Transcribed Document [facility] [address] [place] [address] ProviderCristian MD Social History Tobacco Use Types Packs/Day Years Used Date Smoking Tobacco: Never Assessed Comments Unknown Sex and Gender Information Value Date Recorded Sex Assigned at Female 05/13/2022 8:28 PM CDT Legal Sex Female 8:28 PM CDT Gender Identity Female 05/13/2022 8:28 PM CDT Sexual Orientation Not on file documented as of this encounter Miscellaneous Notes * Cerner Conversion Note - [facility] Pascale ProviderMD - 03/01/2019 5:56 PM EDT Event Note Entered On: 03/01/2019 16:57 EDT Performed On: 03/01/2019 16:56 EDT by Ирина Cohen Rn Event Note Event Date/Time : 03/01/2019 16:56 EDT Description of Event : 1656: Pt stated she had crutches at home and states she knows how to ambulate with them. Ирина Cohen Rn - 03/01/2019 16:56 EDT Electronically signed by Ev [facility] Conversion Resource Conservation Specialist Cerner at 04/08/2023 8:02 PM CDT documented in this encounter Plan of Treatment Not on file documented as of this encounter Visit Diagnoses Not on filedocumented in this encounter
--- OUTSIDE RECORDS SUMMARY | 2025-04-24 09:25 | XMS_ITS | Clinical Summary ---
Author Organization [email or web address] [facility] [employer] Address [address] [place] [address] Care Team Providers Care Supply Room Clerk Name Role Phone Unavailable Primary Care Provider Unavailabl e Social History Tobacco Use Types Packs/Day Years Used Date Smoking Tobacco: Never Assessed Comments Unknown Sex and Gender Information Value Date Recorded Sex Assigned at Female 05/13/2022 8:28 PM CDT Legal Sex Female 8:28 PM CDT Gender Identity Female 05/13/2022 8:28 PM CDT Sexual Orientation Not on file Plan of Treatment Not on file
--- OUTSIDE RECORDS SUMMARY | 2025-04-24 09:25 | XMS_ITS | Encounter Summary ---
Author Organization [employer] [employer] [facility] [employer] Address [address] [place] [address] Care Team Providers Care Payroll Benefits Administrator Name Role Phone Unavailable Primary Care Provider Unavailabl e Encounter Details Date Type Department Care Team (Late st Contact Info) Description 03/01/2019 Transcribed Document [facility] Radiology [address] [place] [address] Provider, Cristian Ashraf MD Social [...] Notes * Cerner Conversion Note - [facility] Pascale ProviderMD - 03/01/2019 4:02 PM EDT [place] Main OR PreOp Summary Primary Physician: LETICIA MART MD-ORT Finalized Date/Time: 03/01/19 15:14:16 Pt. Name: AUBREY JUAN /Sex: 1955 Female Med Rec #: [id number] Physician: LETICIA MART MD-ORT Financial #: [id number] Pt. Type: O Room/Bed: [facility]/6 Admit/Disch: 03/01/19 04:54:00 [place] [facility] [place] Times Entry 1 In Preop 03/01/19 11:05:00 Ready for Holding n/a Room Patient Ready for 03/01/19 11:45:00 Surgery Patient Out of Preop 03/01/19 14:33:00 Patient Out of n/a Holding Room Last Modified By: NICOLE HEADLEY 03/01/19 15:14:12 Adam PreOp Case Times Audit 03/01/19 15:14:12 Pigment Supplier: [id number] Modifier: [email or web address] <+> 1 Patient Out of Preop Finalized By: NICOLE HEADLEY Document Signatures Signed By: NICOLE HEADLEY 03/01/19 15:14 Electronically signed by Ev [facility] Conversion Personnel Placement Specialist Cerner at 04/08/2023 8:03 PM CDT documented in this encounter Plan of Treatment Not on file documented as of this encounter Visit Diagnoses Not on filedocumented in this encounter
--- OUTSIDE RECORDS SUMMARY | 2025-04-24 09:25 | XMS_ITS | Encounter Summary ---
Author Organization [email or web address] Address [address] [place] [address] Care Team Providers Care Automation Tester Name Role Phone Unavailable Primary Care Provider Unavailabl e Encounter Details Date Type Department Care Team (Late st Contact Info) Description 03/01/2019 Transcribed Document [facility] Radiology [address] [place] [address] Provider, Cristian Ashraf MD Social [...] Miscellaneous Notes * Cerner Conversion Note - [facility] Pascale ProviderMD - 03/01/2019 4:02 PM EDT [place] Main OR IntraOp Summary Primary Physician: LETICIA MART MD-ORT Finalized Date/Time: 03/01/19 15:56:46 Pt. Name: ALLYSON JUAN /Sex: 1955 Female Med Rec #: [id number] Physician: LETICIA MART MD-ORT Financial #: [id number] Pt. Type: O Room/Bed: [facility]/ Admit/Disch: 03/01/19 04:54:00 [place] [facility] [place] Attendance Entry 1 Entry 2 Entry 3 Case Attendee VASICEKLETICIA Gillenwater, Cheryl B, PANCHO SHAW, RN -ORT RN Role Performed Surgeon/Proceduralist, Client Care Specialist, First Client Care Specialist, Second First Time In 03/01/19 14:27:00 03/01/19 14:27:00 03/01/19 14:45:00 Time Out 03/01/19 15:47:00 03/01/19 14:49:00 03/01/19 15:47:00 Procedure Knee Arthroscopy Knee Arthroscopy Knee Arthroscopy Other Attendee Superficial Wound Closed By: Last Modified By: PANCHO SHAW, PANCHO RANDOLPH, RN PANCHO SHAW, PRECIOUS 03/01/19 15:47:41 03/01/19 15:47:41 03/01/19 15:47:41 Entry 4 Entry 5 Case Attendee ALICIA HARDY ST WHITAKER, CARLY CHIEF MEDIA OFFICER Role Performed Scrub, First CHIEF MEDIA OFFICER/Nurse [employer] Plasma Etcher Time In 03/01/19 14:27:00 03/01/19 14:27:00 Time Out 03/01/19 15:47:00 03/01/19 15:47:00 Procedure Knee Arthroscopy Knee Arthroscopy Other Attendee Superficial Wound Closed By: Last Modified By: PANCHO SHAW, PANCHO RANDOLPH, PRECIOUS 03/01/19 15:47:41 03/01/19 15:47:41 [facility] IntraOp Case Attendance Audit 03/01/19 15:47:41 Labor Contractor: LONGGA Modifier: LONGGA 1 <+> Time Out 1 <*> Procedure Knee Arthroscopy 2 <*> Procedure Knee Arthroscopy 3 <+> Time Out 3 <*> Procedure Knee Arthroscopy 4 <+> Time Out 4 <*> Procedure Knee Arthroscopy 5 <+> Time Out 5 <*> Procedure Knee Arthroscopy 03/01/19 15:07:05 Labor Contractor: LONGGA Modifier: LONGGA <+> 1 Procedure 2 <*> Procedure Knee Arthroscopy 3 <*> Procedure Knee Arthroscopy 4 <*> Procedure Knee Arthroscopy 5 <*> Procedure Knee Arthroscopy 03/01/19 15:05:50 Labor Contractor: LONGGA Modifier: LONGGA <+> 3 Case Attendee <+> 3 Role Performed <+> 3 Time In <+> 3 Procedure <+> 4 Case Attendee <+> 4 Role Performed <+> 4 Time In <+> 4 Procedure <+> 5 Case Attendee <+> 5 Role Performed <+> 5 Time In <+> 5 Procedure [facility] IntraOp Case Times Entry 1 Patient In Room Time 03/01/19 14:27:00 Out Room Time 03/01/19 15:47:00 Anesthesia Start Time 03/01/19 14:27:00 Stop Time 03/01/19 15:47:00 Anesthesia Ready 03/01/19 14:27:00 Surgery / Procedure Times Start Time 03/01/19 15:02:00 Stop Time 03/01/19 15:31:00 Last Modified By: PANCHO SHAW RN 03/01/19 15:47:38 [facility] IntraOp Case Times Audit 03/01/19 15:47:38 Labor Contractor: LONGGA Modifier: LONGGA <+> 1 Out Room Time <+> 1 Stop Time 03/01/19 15:37:20 Labor Contractor: LONGGA Modifier: LONGGA <+> 1 Stop Time 03/01/19 15:07:10 Labor Contractor: LONGGA Modifier: LONGGA 1 <*> Start Time 03/01/19 15:03:00 03/01/19 15:06:48 Labor Contractor: LONGGA Modifier: LONGGA <+> 1 Start Time [facility] IntraOp Communication Entry 1 Communication To Family/Significant other Comment COMMUNICATION BOARD Date and Time 03/01/19 15:27:00 Last Modified By: PANCHO SHAW RN 03/01/19 15:27:23 [facility] IntraOp Counts Verification Entry 1 Procedure Knee Arthroscopy Count Info Count Type Sponge, Sharps Counts Verification Baseline/pre-procedure Sequence Count Results Correct, surgeon notified Counts Performed By Count Performed By ALICIA HADRY ST (Scrub) Count Performed By PANCHO SHAW, RN (RN) Last Modified By: PANCHO SHAW RN 03/01/19 15:20:02 [facility] IntraOp Counts Final Entry 1 Procedure Knee Arthroscopy Final Count Info Count Type Sponge, Sharps Counts Verification Skin Closure/end of Sequence procedure Count Results Correct, surgeon notified Counts Performed By Count Performed By ALICIA HARDY ST (Scrub) Count Performed By PANCHO SHAW, RN (RN) Last Modified By: PANCHO SHAW RN 03/01/19 15:37:45 [facility] IntraOp Counts Final Audit 03/01/19 15:37:45 Labor Contractor: FARHAD Modifier: FARHAD 1 <*> Procedure Knee Arthroscopy 1 <+> Count Performed By (RN) [facility] IntraOp Delays Entry 1 Delay Reason Room not ready Duration 20 Minute(s) Comment COULDN'T FIND EQUIPMENT FOR CASE Last Modified By: PANCHO SHAW RN 03/01/19 15:09:33 [facility] IntraOp Departure from OR Entry 1 Integumentary Assessment Integumentary WDL Assessment WDL Transfer/Handoff Transfer to PACU Phase I Handoff Method Bedside/Face to face Post-op Transport Stretcher/Gurney Via Patient Transport Odette Lott, Accompanied by RN, BEAU HUTCHISON CRNA Last Modified By: PANCHO SHAW RN 03/01/19 15:26:53 [facility] IntraOp Dressing and Packing Entry 1 Type Dressing Location LEFT KNEE Wound Dressing Item 4x4's, Steristrip, Kerlix/Rtuh, Brandon Supplemental Cold pack Applications Applied By LETICIA MART MD-ORT Last Modified By: PANCHO SHAW RN 03/01/19 15:14:24 [facility] IntraOp Fire Risk Assessment Entry 1 Fire Info Surgical Site or 0- No Incision Above the Xyphoid Open O2 Source 0- No (Mask or Cannula) Available Ignition 1- Yes (ESU, Laser, Light Source) Fire Risk 1 Assessment Score Fire Score Fire Risk Yes Assessment Complete Fire Risk PANCHO SHAW RN Assessment Verified By Fire Risk 03/01/19 15:14:00 Assessment Verified Date/Time Fire Risk High Risk Protocol Yes Implemented Standard Fire Yes Safety Precautions Followed Last Modified By: PANCHO SHAW RN 03/01/19 15:14:10 [facility] IntraOp Fire Risk Assessment Audit 03/01/19 15:14:10 Labor Contractor: FARHAD Modifier: FARHAD 1 <+> Fire Risk Assessment Complete 1 <*> Fire Risk Assessment Verified By Odette Lott RN 1 <+> Fire Risk Assessment Verified Date/Time 1 <+> High Risk Protocol Implemented [facility] IntraOp General Case Pharmacy Technician Trainee 1 Case Information OR OR 02 SJE Case Level 1 Room Verified Yes Wound Class I - Clean Specialty SN Orthopedic Anesthesia Type General ASA Class 2 Diagnosis Preop Diagnosis MEDIAL AND LATERAL MENISCAL TEARS, LEFT KNEE Postop Same As Preop No Postop Diagnosis DICTATED BY Marlene Last Modified By: PANCHO SHAW RN 03/01/19 15:13:54 [facility] IntraOp Implant Log Entry 1 Type Implant (Synthetic) Implant Log Implant Type Other Implant NDL FAST FIX SYSTEM Identification [facility] [id number] Description Implant Quantity 2 Implant Site LEFT KNEE Implant [id number] Identification Lot Number Implant [employer]:Endo Identification [employer] Name: Implant [id number] Identification Catalog Number Implant Has an Yes Expiration Date Implant Expiration 11/05/21 Date Tissue Implant Last Modified By: PANCHO SHAW RN 03/01/19 15:26:45 [facility] IntraOp Intraoperative Assessment Entry 1 Valid History / Yes Physical in Chart Preoperative Yes Checklist Reviewed/Evaluated Allergies Reviewed Yes Patient is Latex No Sensitive Isolation Not applicable Precautions Noted Level of WDL Consciousness (WDL = Alert, Oriented to Person, Place, and Time) Skin Assessment Yes Verified Present Upon IVs Arrival to OR Last Modified By: PANCHO SHAW RN 03/01/19 15:12:37 [facility] IntraOp Intraoperative Assessment Audit 03/01/19 15:12:37 Labor Contractor: LONGGA Modifier: LONGGA <+> 1 Patient is Latex Sensitive <+> 1 Isolation Precautions Noted [facility] IntraOp Intraoperative Equipment Entry 1 Type Equipment Equipment Equipment Silvana Suction System ID Number [id number] Intraop Monitoring Antiembolic Devices Scopes Photo/Video Documentation Last Modified By: PANCHO SHAW RN 03/01/19 15:12:26 [facility] IntraOp Medication Admin Entry 1 Entry 2 Entry 3 Medication/Irrigant epinephrine 30mg/30ml Morphine PF 10mg 10ml - Naropin 0.5% 30ml vial vial - [id number] - [id number] Combo Med List Time Administered Route of IRRIGANT LOCAL LOCAL Administration Dose Dose 3 5 5 Unit of Measure ml ml ml Volume Administered By LETICIA MART VASICEK, VERONICA A, VASICEK, VERONICA A, MD-ORT -ORT -ORT Procedure Irrigation Irrigant Volume In Irrigant Volume Out Last Modified By: PANCHO SHAW RN LONGSWORTH, GARY, RN LONGSWORTH, PANCHO, RN 03/01/19 15:12:03 03/01/19 15:12:03 03/01/19 15:12:03 [facility] IntraOp Patient Positioning Entry 1 Procedure Knee Arthroscopy Body Position Supine Left Arm Position Secured on padded arm board Right Arm Position Secured on padded arm board Left Leg Position Secured in Leg Florez Right Leg Position Secured in Leg Florez Feet Uncrossed Yes Pressure Points Yes Checked Positioning Devices Arm Board, Safety Strap, Chest Positioned By LETICIA MART MD-ORT, PANCHO SHAW, PRECIOUS, BEAU HUTCHISON CRNA Position Verified Positioning Yes Verified by Anesthesia Positioning Yes Verified by Surgeon Last Modified By: PANCHO SHAW RN 03/01/19 15:10:38 [facility] IntraOp Sign In Entry 1 Patient, Site, Yes Procedure Identified Surgical Consent Yes Confirmed Relevant Surgical Yes Documents Available Surgical Site Yes Marked by person performing procedure Anesthesia Machine Yes Check Completed Airway Hypothermia Risk Yes Warming Measures Yes Taken Last Modified By: PANCHO SHAW RN 03/01/19 15:09:34 [facility] Intra Op Sign Out Entry 1 RN Confirmation Surgical Yes Procedure(s) Identified Instrument, Sponge Yes and Sharps Counts Correct/Documented Equipment Problems N/A Documented Specimen Labeled N/A Correctly Urinary Catheter N/A Documented in IView Gomez Patient Yes Recovery Concerns Reviewed with Anesthesia Provider, Surgeon and RN Gomez Patient Yes Management Concerns Reviewed with Anesthesia Provider, Surgeon and RN Safety Checklist Yes Elements Complete? RN Sign Out PANCHO SHAW RN Signature RN Sign Out 03/01/19 15:37:00 Signature Date/Time Plan of Care Outcome - Fire Risk OUTCOME STATEMENT: Goal met Patient is free from injury related to surgical fire Plan of Care Outcome - Pt Positioning OUTCOME STATEMENT: Goal met Absence of signs and symptoms of positioning injury. Plan of Care Outcome - Skin Prep OUTCOME STATEMENT: Goal met Intraoperative care is consistent with measures to prevent infection Plan of Care Outcome - Xray/Images OUTCOME STATEMENT: N/A Absence of observable signs or symptoms of radiation injury Plan of Care Outcome - Counts OUTCOME STATEMENT: Goal met Absence of signs and symptoms of injury related to extraneous objects Last Modified By: PANCHO SHAW RN 03/01/19 15:37:37 [facility] IntraOp Skin Prep Entry 1 Procedure Knee Arthroscopy Prescribed Yes Pre-Surgical Prep Completed Prep Area LEFT LEG Intraop Prep Integumentary WDL Assessment WDL Prep Agents Chloraprep Prep by Odette Lott RN Hair Removal Methods No hair removal performed Last Modified By: PANCHO SHAW RN 03/01/19 15:09:49 [facility] IntraOp Surgical Procedures Entry 1 Procedure Knee Arthroscopy Additional LEFT KNEE ARTHROSCOPY Procedure WITH PARTIAL MEDIAL Description MENISECTOMY, LATERAL MENISCAL REPAIR. REMOVAL LOOSE BODIES, MEDIAL COMPARTMENT CHONDROPLASTY Primary Procedure Yes Primary Surgeon LETICIA MART MD-ORT Start 03/01/19 15:03:00 Stop 03/01/19 15:31:00 Anesthesia Type General Specialty SN Orthopedic Wound Class I - Clean Last Modified By: PANCHO SHAW RN 03/01/19 15:37:21 [facility] IntraOp Surgical Procedures Audit 03/01/19 15:37:21 Labor Contractor: LONGGA Modifier: LONGGA <+> 1 Stop 03/01/19 15:19:49 Labor Contractor: LONGGA Modifier: LONGGA 1 <*> Procedure Knee Arthroscopy 1 <*> Additional Procedure Description LEFT KNEE ARTHROSCOPY WITH MEDIAL MENISECTOMY 03/01/19 15:07:32 Labor Contractor: LONGGA Modifier: LONGGA 1 <*> Procedure Knee Arthroscopy 1 <*> Additional Procedure Description LEFT KNEE ARTHROSCOPY WITH MEDIAL LATERAL MENISCECTOMY VS REPAIR [facility] IntraOp Temp Regulation Devices Entry 1 Temp Regulation Temperature Warm blankets Regulation Device Temperature Upper body Regulation Site Temperature PANCHO SHAW RN Regulation Device Applied by Last Modified By: PANCHO SHAW RN 03/01/19 15:08:27 [facility] IntraOp Time Out Entry 1 Procedure to be Knee Arthroscopy Performed Time Out Time Out Pause Time 03/01/19 15:01:00 All activity Yes suspended (unless life threatening emergency) Team Verbally Correct patient Confirms Information identity, Correct side and site are marked, Consent form is present and accurate, Agreement on the procedure to be done, Correct patient position, Relevant images/results properly labeled/appropriately displayed, Confirm antibiotics have been administered, Confirm the skin prep has dried, Confirm prosthesis/implant/devic e is present, Performed in location of procedure after prepped/draped Antibiotic Yes Prophylaxis Administered Or In Progress Within the Last 60 Minutes Beta Erica N/A Administered Venous N/A Thromboembolism Prophylaxis Required Anticipated Critical Events Surgeon None expected Anesthesia Provider None expected Nursing Assures Sterility of instruments Essential Imaging Yes Labeled and Displayed Last Modified By: PANCHO SHAW RN 03/01/19 15:08:13 [facility] IntraOp Tourniquet Entry 1 Type Pneumatic Serial/Unit Number LOANER Setting 300 mmHg Pheumatic Yes Tourniquet Checked Per Protocol Size 30 inches Placement Thigh, left upper Skin Protection - Yes Padded Under Cuff Applied By PANCHO SHAW RN Times Start Time 03/01/19 15:02:00 Stop Time 03/01/19 15:23:00 Last Modified By: PANCHO SHAW RN 03/01/19 15:56:44 [facility] IntraOp Tourniquet Audit 03/01/19 15:56:44 Labor Contractor: FARHAD Modifier: LONGSHELLIE <+> 1 Stop Time Case Comments <None> Finalized By: PANCHO SHAW, RN Document Signatures Signed By: PANCHO SHAW RN 03/01/19 15:56 Electronically signed by Ev [facility] Conversion Autocutter Cerner at 04/08/2023 8:02 PM CDT documented in this encounter Plan of Treatment Not on file documented as of this encounter Visit Diagnoses Not on filedocumented in this encounter
--- OUTSIDE RECORDS SUMMARY | 2025-04-24 09:25 | XMS_ITS | Encounter Summary ---
Author Organization [email or web address] Address [address] [place] [address] Care Team Providers Care Manager Underwriting Name Role Phone Unavailable Primary Care Provider Unavailabl e Encounter Details Date Type Department Care Team (Late st Contact Info) Description 02/01/2019 Transcribed Document [id number] Radiology [address] [place] [address] Provider, Cristian Ashraf MD Social [...] Miscellaneous Notes * Cerner Conversion Note - [facility] Pascale Alvarez MD - 02/01/2019 12:31 PM EDT Patient: AUBREY JUAN Age: 63 Years Sex: Female : 1955 Chief Complaint Left Knee Pain Primary Care Provider KENNY GARCÍA MD History of Present Illness This patient is a pleasant 63 yo WF who presents with left knee pain. The pain has been going on for 6 months but has gotten progressively worse. She describes it as a sharp pain. It is now to the point that it is affecting her ADLs. She has tried NSAIDs without relief of her pain. She has not fallen. She has not used an assistive device. She saw Dr Mcguire who evaluated her and she was offered a Left Knee Arthroscopy with Medial and Lateral Meniscectomy vs Repair and agreed to the procedure. Pt denies a h/o DVT/PE. No trouble with anesthesia in the past. No respiratory conditions including COPD/PAWEL/asthma. Review of Systems Constitutional: Neg for fevers or chills. Eyes: Neg for blurry vision or change in vision. ENT: Neg for sore throat, ear pain, or dizziness. Cardiac: Neg for chest pain or dyspnea on exertion. Respiratory: Neg for shortness of breath. Gastrointestinal: Neg for nausea, vomiting, diarrhea, or constipation. Musculoskeletal: Pos for left knee pain. Neurologic: Neg for headaches or seizures. Psychiatric: Neg for anxiety and depression. Integumentary: Neg for rash. Vital Signs Vitals Signs (last 24 hrs) Last Charted Minimum Maximum Temp 97 (FEB 01:) 97 (FEB 01:) 97 (FEB 01:) Periph HR 86 (FEB 01:) 86 (FEB 01:) 86 (FEB 01:) Resp Rate 16 (FEB 01:) 16 (FEB 01:) 16 (FEB 01:) SBP H 166 (FEB 01:) H 166 (FEB 01:) H 166 (FEB 01:) DBP 72 (FEB 01:) 72 (FEB 01:) 72 (FEB 01:) SpO2 97 (FEB 01:) 97 (FEB 01:) 97 (FEB 01:) Oxygen Settings (Last) Oxygen Therapy Mode: Room air (02/01/19 11:09:00 EDT) Physical Exam Constitutional: This is a pleasant 63 yo WF in no acute distress. HEENT: Normocephalic, atraumatic. PEERLA. Extraocular muscles intact. Conjunctiva pink without exudate. Oropharynx pink and moist. Neck supple. No JVD. Cardiac: SI, S2. RRR. No M/R/G. Respiratory: Lungs CTA bilaterally. No wheezes, rales, or rhonchi. Abdomen: Soft, nontender, nondistended. Active bowel sounds. No visible masses. Musculoskeletal: Bilateral LE without clubbing, cyanosis or edema. Integumentary: Skin is pink, warm and dry. No rashes. Neurologic: CN II-XII grossly intact. Psychiatric: Judgment and affect appropriate. Assessment/Plan 1. Preoperative Evaluation- Left Knee Pain: Proceed with surgery as scheduled with Dr Mcguire on 03/01/2019. Pt underwent preoperative laboratory workup and diagnostic studies. Problem List/Past Medical History Ongoing Arthritis Procedure/Surgical History Cholecystectomy, tubal. Home Medications (1) Active ibuprofen 200 mg oral tablet 400 mg = 2 Tab, Oral, BID Allergies Crestor (back pain) Livalo (muscle pain) diclofenac (muscle pain) Social History Tobacco 5-9 cigarettes (between 1/4 to 1/2 pack)/day in last 30 days Smoking Status. Never Smokeless Tobacco Status. Family History Pt mother is alive with Atrial Fib. Pt father at 82 from CAD. Diagnostic Results EKG- NSR, 74 CXR- NAD Lab Results UA- neg nitrites, neg LE A1C- 5.7 CBC Results (Current Encounter/Past 24 Hours) WBC 9.7 K/uL 02/01/2019 13:09 Hct 45.6 % TN 02/01/2019 13:09 Hgb 15.0 Gram/dL 02/01/2019 13:09 Platelet Count 264 K/uL 02/01/2019 13:09 CMP Results (Current Encounter/Past 24 Hours) A/G Ratio 1.0 LOW 02/01/2019 13:21 eGFR >60 mL/min/1.73m2 02/01/2019 13:21 eGFR NonAfrican >60 mL/min/1.73m2 02/01/2019 13:21 Bun/Creatinine 17.6 02/01/2019 13:21 Creatinine Level 0.68 mg/dL 02/01/2019 13:21 Protein Total 7.3 Gram/dL 02/01/2019 13:21 Globulin 3.7 Gram/dL 02/01/2019 13:21 Sodium Level 143 mmol/L 02/01/2019 13:21 Potassium Level 4.5 mmol/L 02/01/2019 13:21 Chloride Level 111 mmol/L 02/01/2019 13:21 Carbon Dioxide Level 27 mmol/L 02/01/2019 13:21 Anion Gap 10 02/01/2019 13:21 Alk Phos 165 Units/Liter TN 02/01/2019 13:21 ALT 49 Units/Liter 02/01/2019 13:21 AST 36 Units/Liter 02/01/2019 13:21 Blood Urea Nitrogen 12 mg/dL 02/01/2019 13:21 Glucose Level 79 mg/dL 02/01/2019 13:21 Albumin Level 3.6 Gram/dL 02/01/2019 13:21 Bilirubin Total 0.3 mg/dL 02/01/2019 13:21 Calcium Level 9.5 mg/dL 02/01/2019 13:21 documented in this encounter Plan of Treatment Not on file documented as of this encounter Visit Diagnoses Not on filedocumented in this encounter
--- OUTSIDE RECORDS SUMMARY | 2025-04-24 09:25 | XMS_ITS | Encounter Summary ---
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 Name Role Phone Unavailable Primary Care Provider Unavailabl e Encounter Details Date Type Department Care Team (Late st Contact Info) Description 03/01/2019 Transcribed Document [address] [id number] Provider, Cristian Ashraf MD Social History [...] Miscellaneous Notes * Cerner Conversion Note - [facility] Pascale ProviderMD - 03/01/2019 5:34 PM EDT [address] [address] AUBREY JUAN :1955 Visit Time:03/01/2019 What to do next Your Diagnosis Other tear of medial meniscus, current injury, left knee, initial encounter, Other tear of medial meniscus, current injury, left knee, initial encounter Instructions From Your Care Team Diet after Discharge: resume home diet_ Activity after Discharge: may start weight bearing 03/31/19. Use crutches until 03/31/19. Driving after Discharge: no driving for 24 hrs after surgery or any time you are taking pain medication. Showering/Bathing: leave yoly bandage in place for 48 hours. Keep clean, dry and intact. On 03/03/19 you may remove the operative dressing (but no the steri-strips). Reapply bandaids to the sites after shower. May shower after the dressing is off. No tub baths. Notify Provider of: increased redness, drainage, pain, swelling, or odor at incision site. increased temperature of 101 or higher. if you experience any large amounts of bleeding, difficulty breathing, vision changes or persistent nausea and vomiting. if your pain medication doesn't help or you are unable to tolerate the pain. if unable to urinate in 6-8 hours or have not had a bowel movement in 2-3 days. Wound/Incision Care after Discharge: keep clean, dry and intact. Remove in 48 hours. elevate the the leg higher than your heart for the first 24 hours. Use ice pack or apply ice to the knee every hour for 20 minutes while awake for 48 hours, then apply ice as needed for swelling and pain. Prescriptions given for Broadlands 7.5/325 one tab by mouth every 4-6 hours as needed for pain. Discharge Follow Up Instructions: See discharge pre-printed BGO sheet. Prescriptions attached. Follow-Up Appointments Follow Up with LETICIA MART MD-ORT When 03/11/2019 11:00 AM EDT Where: [address] [facility] [address] [place] [address]- Medications What How Much When Instructions Next Dose Unchanged ibuprofen (ibuprofen 200 mg oral tablet) 2 Tablet(s) Oral Two Times A Day Take your medications faithfully. Do NOT skip medication. Do NOT stop taking medications without the direction of a physician. Carry a list of your medications with you at all times, and take this medication list with you to your first follow up visit. Report any side effects. Avoid herbal remedies unless discussed with your physician. As part of your treatment plan, your physician may have prescribed a limited course of a controlled substance. This medication may be given to help people with moderate or severe pain or for other medical conditions, but there are risks involved with treatment. Common side effects may include nausea, constipation, drowsiness, sweating, itching, dry mouth, and rash. More serious side effects may include cognitive and motor impairment, like problems with thinking, concentrating, alertness, and movement (e.g. slowed reflexes), and driving and operating heavy machinery can be dangerous. It is important for you to talk to your physician if you have these side effects or questions. These controlled substances can produce physical dependence and be habit-forming if taken for an extended period of time, which means that the body has gotten used to them and may experience withdrawal symptoms if they are abruptly stopped. Withdrawal symptoms can include runny nose, sweating, goose bumps, diarrhea, abdominal cramping, rapid heartbeat, difficulty sleeping, and nervousness. Please dispose of unused and medications per pharmacy guidance. Education Materials General Anesthesia, Adult, Care After These instructions provide you with information about caring for yourself after your procedure. Your health care provider may also give you more specific instructions. Your treatment has been planned according to current medical practices, but problems sometimes occur. Call your health care provider if you have any problems or questions after your procedure. What can I expect after the procedure? After the procedure, it is common to have: ??? Vomiting. ??? A sore throat. ??? Mental slowness. It is common to feel: ??? Nauseous. ??? Cold or shivery. ??? Sleepy. ??? Tired. ??? Sore or achy, even in parts of your body where you did not have surgery. Follow these instructions at home: For at least 24 hours after the procedure: ??? Do not: ? Participate in activities where you could fall or become injured. ? Drive. ? Use heavy machinery. ? Drink alcohol. ? Take sleeping pills or medicines that cause drowsiness. ? Make important decisions or sign legal documents. ? Take care of children on your own. ??? Rest. Eating and drinking ??? If you vomit, drink water, juice, or soup when you can drink without vomiting. ??? Drink enough fluid to keep your urine clear or pale yellow. ??? Make sure you have little or no nausea before eating solid foods. ??? Follow the diet recommended by your health care provider. General instructions ??? Have a responsible adult stay with you until you are awake and alert. ??? Return to your normal activities as told by your health care provider. Ask your health care provider what activities are safe for you. ??? Take flfa-xcg-bfowwou and prescription medicines only as told by your health care provider. ??? If you smoke, do not smoke without supervision. ??? Keep all follow-up visits as told by your health care provider. This is important. Contact a health care provider if: ??? You continue to have nausea or vomiting at home, and medicines are not helpful. ??? You cannot drink fluids or start eating again. ??? You cannot urinate after 8E2 hours. ??? You develop a skin rash. ??? You have fever. ??? You have increasing redness at the site of your procedure. Get help right away if: ??? You have difficulty breathing. ??? You have chest pain. ??? You have unexpected bleeding. ??? You feel that you are having a life-threatening or urgent problem. This information is not intended to replace advice given to you by your health care provider. Make sure you discuss any questions you have with your health care provider. Document Released: 02/08/2002 Document Revised: 04/06/2017 Document Reviewed: 10/16/2016 [employer] Interactive Patient Education ?? 2017 [employer]. Knee Arthroscopy, Care After Refer to this sheet in the next few weeks. These instructions provide you with information about caring for yourself after your procedure. Your health care provider may also give you more specific instructions. Your treatment has been planned according to current medical practices, but problems sometimes occur. Call your health care provider if you have any problems or questions after your procedure. What can I expect after the procedure? After the procedure, it is common to have: ??? Soreness. ??? Pain. Follow these instructions at home: Bathing ??? Do nottake baths, swim, or use a hot tub until your health care provider approves. Incision care ??? There are many different ways to close and cover an incision, including stitches, skin glue, and adhesive strips. Follow your health care provider???s instructions about: ? Incision care. ? Bandage (dressing) changes and removal. ? Incision closure removal. ??? Check your incision area every day for signs of infection. Watch for: ? Redness, swelling, or pain. ? Fluid, blood, or pus. Activity ??? Avoid strenuous activities for as long as directed by your health care provider. ??? Return to your normal activities as directed by your health care provider. Ask your health care provider what activities are safe for you. ??? Perform duzkr-oa-humvsc exercises only as directed by your health care provider. ??? Do notlift anything that is heavier than 10 lb (4.5 kg). ??? Do notdrive or operate heavy machinery while taking pain medicine. ??? If you were given crutches, use them as directed by your health care provider. Managing pain, stiffness, and swelling ??? If directed, apply ice to the injured area: ? Put ice in a plastic bag. ? Place a towel between your skin and the bag. ? Leave the ice on for 20 minutes, 2E times per day. ??? Raise the injured area above the level of your heart while you are sitting or lying down as directed by your health care provider. General instructions ??? Keep all follow-up visits as directed by your health care provider. This is important. ??? Take medicines only as directed by your health care provider. ??? Do notuse any tobacco products, including cigarettes, chewing tobacco, or electronic cigarettes. If you need help quitting, ask your health care provider. ??? If you were given compression stockings, wear them as directed by your health care provider. These stockings help prevent blood clots and reduce swelling in your legs. Contact a health care provider if: ??? You have severe pain with any movement of your knee. ??? You notice a bad smell coming from the incision or dressing. ??? You have redness, swelling, or pain at the site of your incision. ??? You have fluid, blood, or pus coming from your incision. Get help right away if: ??? You develop a rash. ??? You have a fever. ??? You have difficulty breathing or have shortness of breath. ??? You develop pain in your calves or in the back of your knee. ??? You develop chest pain. ??? You develop numbness or tingling in your leg or foot. This information is not intended to replace advice given to you by your health care provider. Make sure you discuss any questions you have with your health care provider. Document Released: 05/22/2006 Document Revised: 04/03/2017 Document Reviewed: 10/29/2015 Elsevier Interactive Patient Education ?? 2017 [employer]. acetaminophen and hydrocodone (a SEET a MIN oh fen and kashif droluigi KOE done) Hycet, Lorcet, [place], Verdrocet, Vicodin, Xodol, Zamicet What is the most important information I should know about acetaminophen and hydrocodone? MISUSE OF OPIOID MEDICINE CAN CAUSE ADDICTION, OVERDOSE, OR . Keep the medication in a place where others cannot get to it. An overdose of acetaminophen can damage your liver or cause . Call your doctor at once if you have pain in your upper stomach, loss of appetite, dark urine, or jaundice (yellowing of your skin or eyes). Taking opioid medicine during may cause life-threatening withdrawal symptoms in the . Fatal side effects can occur if you use opioid medicine with alcohol, or with other drugs that cause drowsiness or slow your breathing. Stop taking this medicine and call your doctor right away if you have skin redness or a rash that spreads and causes blistering and peeling. What is acetaminophen and hydrocodone? Hydrocodone is an opioid pain medication, sometimes called a narcotic. Acetaminophen is a less potent pain reliever that increases the effects of hydrocodone. Acetaminophen and hydrocodone is a combination medicine used to relieve moderate to severe pain. Acetaminophen and hydrocodone may also be used for purposes not listed in this medication guide. What should I discuss with my healthcare provider before taking acetaminophen and hydrocodone? You should not use this medicine if you are allergic to acetaminophen or hydrocodone, or if you have: ? severe asthma or breathing problems; or ?? a blockage in your stomach or intestines. Tell your doctor if you have ever had: ? liver disease; ?? a drug or alcohol addiction; ?? kidney disease; ?? a head injury or seizures; ?? urination problems; or ?? problems with your thyroid, pancreas, or gallbladder. If you use opioid medicine while you are , your baby could become dependent on the drug. This can cause life-threatening withdrawal symptoms in the baby after it is born. Babies born dependent on opioids may need medical treatment for several weeks. Do not breast-feed. This medicine can pass into breast milk and cause drowsiness, breathing problems, or in a nursing baby. How should I take acetaminophen and hydrocodone? Follow all directions on your prescription label. Never take this medicine in larger amounts, or for longer than prescribed. An overdose can damage your liver or cause . Tell your doctor if the medicine seems to stop working as well in relieving your pain. Always check your bottle to make sure you have received the correct pills (same brand and type) of medicine prescribed by your doctor. Never share this medicine with another person, especially someone with a history of drug abuse or addiction. MISUSE CAN CAUSE ADDICTION, OVERDOSE, OR . Keep the medicine in a place where others cannot get to it. Selling or giving away acetaminophen and hydrocodone is against the law. Measure liquid medicine carefully. Use the dosing syringe provided, or use a medicine dose-measuring device (not a kitchen spoon). If you need surgery or medical tests, tell the doctor ahead of time that you are using this medicine. You should not stop using this medicine suddenly. Follow your doctor's instructions about tapering your dose. Store at room temperature away from moisture and heat. Keep track of your medicine. You should be aware if anyone is using it improperly or without a prescription. Do not keep leftover opioid medication. Just one dose can cause in someone using this medicine accidentally or improperly. Ask your pharmacist where to locate a drug take-back disposal program. If there is no take-back program, flush the unused medicine down the toilet. What happens if I miss a dose? Since this medicine is used for pain, you are not likely to miss a dose. Skip any missed dose if it is almost time for your next dose. Do not use two doses at one time. What happens if I overdose? Seek emergency medical attention or call the Poison Help line at . An overdose of acetaminophen and hydrocodone can be fatal. The first signs of an acetaminophen overdose include loss of appetite, nausea, vomiting, stomach pain, sweating, and confusion or weakness. Later symptoms may include pain in your upper stomach, dark urine, and yellowing of your skin or the whites of your eyes. Overdose can also cause severe muscle weakness, pinpoint pupils, very slow breathing, extreme drowsiness, or coma. What should I avoid while taking acetaminophen and hydrocodone? Avoid driving or operating machinery until you know how this medicine will affect you. Dizziness or drowsiness can cause falls, accidents, or severe injuries. Do not drink alcohol. Dangerous side effects or could occur. Ask a doctor or pharmacist before using any other medicine that may contain acetaminophen (sometimes abbreviated as APAP). Taking certain medications together can lead to a fatal overdose. What are the possible side effects of acetaminophen and hydrocodone? Get emergency medical help if you have signs of an allergic reaction: hives; difficulty breathing; swelling of your face, lips, tongue, or throat. Opioid medicine can slow or stop your breathing, and may occur. A person caring for you should seek emergency medical attention if you have slow breathing with long pauses, blue colored lips, or if you are hard to wake up. In rare cases, acetaminophen may cause a severe skin reaction that can be fatal. This could occur even if you have taken acetaminophen in the past and had no reaction. Stop taking this medicine and call your doctor right away if you have skin redness or a rash that spreads and causes blistering and peeling. Call your doctor at once if you have: ? noisy breathing, sighing, shallow breathing; ?? a light-headed feeling, like you might pass out; ?? liver problems--nausea, upper stomach pain, tiredness, loss of appetite, dark urine, pily-colored stools, jaundice (yellowing of the skin or eyes); or ?? low cortisol levels-- nausea, vomiting, loss of appetite, dizziness, worsening tiredness or weakness. Seek medical attention right away if you have symptoms of serotonin syndrome, such as: agitation, hallucinations, fever, sweating, shivering, fast heart rate, muscle stiffness, twitching, loss of coordination, nausea, vomiting, or diarrhea. Serious side effects may be more likely in older adults and those who are overweight, malnourished, or debilitated. Long-term use of opioid medication may affect fertility (ability to have children) in men or women. It is not known whether opioid effects on fertility are permanent. Common side effects include: ? dizziness, drowsiness, feeling tired; ?? nausea, vomiting, stomach pain; ?? constipation; or ?? headache. This is not a complete list of side effects and others may occur. Call your doctor for medical advice about side effects. You may report side effects to FDA at 5-167-USA-6572. What other drugs will affect acetaminophen and hydrocodone? You may have breathing problems or withdrawal symptoms if you start or stop taking certain other medicines. Tell your doctor if you also use an antibiotic, antifungal medication, heart or blood pressure medication, seizure medication, or medicine to treat HIV or hepatitis C. Opioid medication can interact with many other drugs and cause dangerous side effects or . Be sure your doctor knows if you also use: ? cold or allergy medicines, bronchodilator asthma/COPD medication, or a diuretic ('water pill'); ?? medicines for motion sickness, irritable bowel syndrome, or overactive bladder; ?? other narcotic medications--opioid pain medicine or prescription cough medicine; ?? a sedative like Valium--diazepam, alprazolam, lorazepam, Xanax, Klonopin, Versed, and others; ?? drugs that make you sleepy or slow your breathing--a sleeping pill, muscle relaxer, medicine to treat mood disorders or mental illness; ?? drugs that affect serotonin levels in your body--a stimulant, or medicine for depression, Parkinson's disease, migraine headaches, serious infections, or nausea and vomiting. This list is not complete. Other drugs may affect acetaminophen and hydrocodone, including prescription and axsd-fkb-jbxtbge medicines, vitamins, and herbal products. Not all possible interactions are listed here. Where can I get more information? Your doctor or pharmacist can provide more information about acetaminophen and hydrocodone. Remember, keep this and all other medicines out of the reach of children, never share your medicines with others, and use this medication only for the indication prescribed. Every effort has been made to ensure that the information provided by [employer]') is accurate, up-to-date, and complete, but no guarantee is made to that effect. Drug information contained herein may be time sensitive. [employer] information has been compiled for use by healthcare practitioners and consumers in the [place] and therefore [employer] does not warrant that uses outside of the [place] are appropriate, unless specifically indicated otherwise. [employer] drug information does not endorse drugs, diagnose patients or recommend therapy. [employer] drug information is an informational resource designed to assist licensed healthcare practitioners in caring for their patients and/or to serve consumers viewing this service as a supplement to, and not a substitute for, the expertise, skill, knowledge and judgment of healthcare practitioners. The absence of a warning for a given drug or drug combination in no way should be construed to indicate that the drug or drug combination is safe, effective or appropriate for any given patient. [facility] does not assume any responsibility for any aspect of healthcare administered with the aid of information [facility] provides. The information contained herein is not intended to cover all possible uses, directions, precautions, warnings, drug interactions, allergic reactions, or adverse effects. If you have questions about the drugs you are taking, check with your doctor, nurse or pharmacist. Copyright 5101-1986 [facility]. Version: 15.02. Revision Date: 09/20/2018. Emergency Awareness and Preventative Care STROKE is an EMERGENCY Every Minute Counts Act FAST and Check for these signs: FACE Does the face look uneven? ARM Does one arm drift down? SPEECH Does their speech sound strange? TIME Call at any sign of stroke Stroke Risk Factors Atrial Fibrillation (irregular heartbeat) Diabetes Family history of stroke Heart Disease Heavy alcohol use High Blood Pressure High Cholesterol Physical inactivity and obesity Smoking Cigarette Smoking The facts are clear, cigarette smoking will shorten your life. Smoking can cause many illnesses along the way. As a healthcare provider, we recommend that you stop smoking. Assistance with quitting is available by contacting 1-566-UTUV-NOW. This is a free resource providing counseling, support, and referral. Or you may contact your personal physician. National Suicide Prevention Lifeline: The National Suicide Prevention Lifeline is a national network of local crisis centers that provides free and confidential emotional support to people in suicidal crisis or emotional distress 24 hours a day, 7 days a week. Don't Wait! Stop a Heart Attack Before it Starts What is a heart attack? A heart attack is damage or to a part of the heart from severely decreased or lack of blood flow to the heart. Over time, arteries can become narrow from the buildup of fat and cholesterol, which is called plaque. The plaque can rupture causing a blood clot to form. When the blood clot forms, the artery can become severely narrowed or completely blocked, causing a heart attack. Heart attack is the leading cause of in the [place]. 85% of muscle damage occurs within the first 2 hours. Delay in the recognition of heart attack symptoms increases the chances of . Know the early symptoms of a heart attack: Nausea Feeling of fullness in chest Jaw Pain Pain that travels down one or both arms Fatigue/being tired Anxiety Back Pain Chest pressure, squeezing, or discomfort Shortness of breath Sweating, or a cold sweat Feeling of impending doom There are unusual signs of a heart attack, too! Women, the elderly, and diabetics may present with atypical symptoms: Fainting/dizziness Weakness Confusion Risk Factors for a Heart Attack Some heart disease risk factors, such as age and family history, cannot be changed. Others, like smoking and lack of exercise, can be changed. Smoking High Cholesterol High Blood Pressure Family History Obesity Age Gender (Males are at higher risk) Lack of Exercise Diabetes Diet Stress Excessive Alcohol Intake If you or someone you know is experiencing the signs and symptoms of a heart attack, DON???T DELAY. Call immediately and seek help. If someone collapses, perform CPR! Do not attempt to drive if you are having symptoms of heart attack. Hands-Only CPR Why Hands-Only CPR? Hands-Only CPR has been shown to be as effective as conventional CPR for cardiac arrests that occur outside of a hospital. Survival depends on immediately receiving CPR from someone nearby. How do you perform Hands-Only CPR? There are two easy steps: Call if you see a teen or adult collapse Push hard and fast in the center of the chest at a beat of 100 beats per minute. Save a life! 4 WAYS TO GET AHEAD OF SEPSIS SEPSIS is a MEDICAL EMERGENCY. Time matters! Infections put you and your family at risk for a life-threatening condition called sepsis. Sepsis is the body's extreme response to an infection. It is life-threatening, and without timely treatment, sepsis can rapidly lead to tissue damage, organ failure, and . Sepsis happens when an infection you already have-in your skin, lungs, urinary tract or somewhere else-triggers a chain reaction throughout your body. 1 PREVENT INFECTIONS Take good care of chronic conditions. Talk to your doctor about getting the recommended vaccines. 2 PRACTICE GOOD HYGIENE Wash your hands frequently. Keep cuts or open sores clean and covered until they are healed. 3 KNOW THE SYMPTOMS Confusion or disorientation Shortness of breath High heart rate Fever, shivering, or feeling very cold Extreme pain or discomfort Clammy or sweaty skin 4 ACT FAST Get medical care IMMEDIATELY if you suspect sepsis or if you have an infection that is not getting better or is getting worse. To learn more about sepsis and how to prevent infections, visit www.cdc.gov/sepsis. Patient Portal Reminder: Be sure to sign up for the [facility] patient portal, which gives you 08/06 access to your medical information Eincluding these discharge instructions Eusing your computer, smartphone, or tablet. Just go to [employer] to get started. Questions? Call . Test Results Laboratory or Other Results This Visit (last charted value for your 03/01/2019 visit) Hematology 02/01/19 10:41:00 WBC: 9.7 K/uL -- Normal range between ( 3.9 and 10.0 ) RBC: 4.70 Million/uL -- Normal range between ( 3.93 and 5.22 ) Hct: 45.6 % -- Normal range between ( 34.1 and 44.9 ) Hgb: 15.0 Gram/dL -- Normal range between ( 11.2 and 15.7 ) Platelet Count: 264 K/uL -- Normal range between ( 163 and 369 ) MCH: 31.9 pg -- Normal range between ( 25.6 and 32.2 ) MCHC: 32.9 Gram/dL -- Normal range between ( 32.3 and 36.5 ) MCV: 97.0 fL -- Normal range between ( 79.0 and 94.8 ) Slide Review: No Eos %: 0.6 % -- Normal range between ( 1.0 and 7.0 ) [place] #: 0.68 K/uL -- Normal range between ( 0.24 and 0.82 ) Eos #: 0.06 K/uL -- Normal range between ( 0.04 and 0.54 ) [place] %: 7.0 % -- Normal range between ( 4.7 and 12.5 ) Baso %: 0.7 % -- Normal range between ( 0.0 and 1.0 ) Baso #: 0.07 K/uL -- Normal range between ( 0.01 and 0.08 ) RDW: 13.2 % -- Normal range between ( 11.6 and 14.4 ) Neut %: 57.4 % -- Normal range between ( 34.0 and 71.0 ) Neut #: 5.55 K/uL -- Normal range between ( 1.56 and 6.13 ) Lymph %: 34.1 % -- Normal range between ( 19.3 and 53.0 ) Lymph #: 3.30 K/uL -- Normal range between ( 1.18 and 3.74 ) MPV: 11.9 fL -- Normal range between ( 9.4 and 12.4 ) IG#: 0 x10(3)/uL IG%: 0 % -- Normal range between ( 0 and 1 ) Urinalysis 02/01/19 10:41:00 Ur RBC: 2-5 /HPF Urine Nitrite: Negative Urine Leukocyte Esterase: Negative Ur Epithelial Cells: 10-20 /HPF Urine Appearance: Clear Urine Glucose Dipstick: Negative Urine Blood Dipstick: Negative Urine Urobilinogen Dipstick: 0.2 EU/dL -- Normal range between ( 0.2 and 1.0 ) Ur Calcium Oxalate Crystals: Trace Urine Protein Dipstick: Negative Ur Bacteria: Trace Urine Color: Yellow Ur WBC: 0-2 /HPF Urine Ketones Dipstick: Negative Urine pH Dipstick: 5.0 -- Normal range between ( 6.0 and 8.0 ) Urine Bilirubin Dipstick: Negative Urine Specific [place]: 1.019 -- Normal range between ( 1.005 and 1.030 ) Urine Type.: [facility] 02/01/19 11:01:00 Hgb A1C: 5.70 % -- Normal range between ( 4.20 and 6.30 ) eAVG Glucose: 117 mg/dL 02/01/19 10:41:00 Creatinine Level: 0.68 mg/dL -- Normal range between ( 0.55 and 1.02 ) Sodium Level: 143 mmol/L -- Normal range between ( 136 and 146 ) Potassium Level: 4.5 mmol/L -- Normal range between ( 3.5 and 5.1 ) Chloride Level: 111 mmol/L -- Normal range between ( 102 and 112 ) Carbon Dioxide Level: 27 mmol/L -- Normal range between ( 21 and 32 ) Anion Gap: 10 -- Normal range between ( 9 and 20 ) Bilirubin Total: 0.3 mg/dL -- Normal range between ( 0.2 and 1.3 ) A/G Ratio: 1.0 -- Normal range between ( 1.1 and 2.5 ) ALT: 49 Units/Liter -- Normal range between ( 12 and 78 ) AST: 36 Units/Liter -- Normal range between ( 5 and 37 ) Globulin: 3.7 Gram/dL -- Normal range between ( 1.5 and 4.5 ) Alk Phos: 165 Units/Liter -- Normal range between ( 27 and 136 ) Bun/Creatinine: 17.6 -- Normal range between ( 8.0 and 20.0 ) Calcium Level: 9.5 mg/dL -- Normal range between ( 8.5 and 10.1 ) eGFR : >60 mL/min/1.73m2 eGFR NonAfrican: >60 mL/min/1.73m2 Glucose Level: 79 mg/dL -- Normal range between ( 74 and 106 ) Blood Urea Nitrogen: 12 mg/dL -- Normal range between ( 7 and 22 ) Protein Total: 7.3 Gram/dL -- Normal range between ( 6.4 and 8.2 ) Albumin Level: 3.6 Gram/dL -- Normal range between ( 3.4 and 5.0 ) Diagnostic Radiology 02/01/19 11:58:41 CR Chest 2 Vws: CR Chest 2 Vws Patient Name:CARMENVINHEN JOSÉ I have received this information and was given the opportunity to ask questions. Patient/Clinical Services Professional Name: Patient/Clinical Services Professional Signature: Relationship to Patient: Clinician/Hospital Clinical Services Professional Signature: Date: documented in this encounter Plan of Treatment Not on file documented as of this encounter Visit Diagnoses Not on filedocumented in this encounter
--- OUTSIDE RECORDS SUMMARY | 2025-04-24 09:25 | XMS_ITS | Encounter Summary ---
Author Organization [employer] Address [address] [place] [address] Care Team Providers Care Para Machine Operator Name Role Phone Unavailable Primary Care Provider Unavailabl e Encounter Details Date Type Department Care Team (Late st Contact Info) Description 03/01/2019 Transcribed Document [facility] Radiology 1 [place] [address] Provider, Cristian Ashraf MD Social [...] [facility] Pascale Alvarez MD - 03/01/2019 5:15 PM EDT Patient Education Materials Follows: Knee Arthroscopy, Care After Refer to this [...] the procedure, it is common to have: ESoreness. EPain. Follow these instructions at home: Bathing Landon nottake baths, swim, or use a hot tub until your health care provider approves. Incision care EThere are many different ways to close and cover an incision, including stitches, skin glue, and adhesive strips. Follow your health care provider?s instructions about: ? Incision care. ? Bandage (dressing) changes and removal. ? Incision closure removal. ECheck your incision area every day for signs of infection. Watch for: ? Redness, swelling, or pain. ? Fluid, blood, or pus. Activity EAvoid strenuous activities for as long as directed by your health care provider. EReturn to your normal activities as directed by your health care provider. Ask your health care provider what activities are safe for you. EPerform urxwp-ns-fabftc exercises only as directed by your health care provider. Landon notlift anything that is heavier than 10 lb (4.5 kg). Landon notdrive or operate heavy machinery while taking pain medicine. EIf you were given crutches, use them as directed by your health care provider. Managing pain, stiffness, and swelling EIf directed, apply ice to the injured area: ? Put ice in a plastic bag. ? Place a towel between your skin and the bag. ? Leave the ice on for 20 minutes, 2?3 times per day. ERaise the injured area above the level of your heart while you are sitting or lying down as directed by your health care provider. General instructions EKeep all follow-up visits as directed by your health care provider. This is important. ETake medicines only as directed by your health care provider. Landon notuse any tobacco products, including cigarettes, chewing tobacco, or electronic cigarettes. If you need help quitting, ask your health care provider. EIf you were given compression stockings, wear them as directed by your health care provider. These stockings help prevent blood clots and reduce swelling in your legs. Contact a health care provider if: EYou have severe pain with any movement of your knee. EYou notice a bad smell coming from the incision or dressing. EYou have redness, swelling, or pain at the site of your incision. EYou have fluid, blood, or pus coming from your incision. Get help right away if: EYou develop a rash. EYou have a fever. EYou have difficulty breathing or have shortness of breath. EYou develop pain in your calves or in the back of your knee. EYou develop chest pain. EYou develop numbness or tingling in your leg or foot. This information is not intended to replace advice given to you by your health care provider. Make sure you discuss any questions you have with your health care provider. Document Released: 05/22/2006 Document Revised: 04/03/2017 Document Reviewed: 10/29/2015 [employer] Interactive Patient Education ? 2017 [employer]. Pharmacology General Anesthesia, Adult, Care After These instructions [...] the procedure, it is common to have: EVomiting. EA sore throat. EMental slowness. It is common to feel: ENauseous. ECold or shivery. ESleepy. ETired. ESore or achy, even in parts of your body where you did not have surgery. Follow these instructions at home: For at least 24 hours after the procedure:Landon not: ? Participate in activities where you could fall or become injured. ? Drive. ? Use heavy machinery. ? Drink alcohol. ? Take sleeping pills or medicines that cause drowsiness. ? Make important decisions or sign legal documents. ? Take care of children on your own. ERest. Eating and drinking EIf you vomit, drink water, juice, or soup when you can drink without vomiting. EDrink enough fluid to keep your urine clear or pale yellow. EMake sure you have little or no nausea before eating solid foods. EFollow the diet recommended by your health care provider. General instructions EHave a responsible adult stay with you until you are awake and alert. EReturn to your normal activities as told by your health care provider. Ask your health care provider what activities are safe for you. ETake zctr-msu-cuyrrkk and prescription medicines only as told by your health care provider. EIf you smoke, do not smoke without supervision. EKeep all follow-up visits as told by your health care provider. This is important. Contact a health care provider if: EYou continue to have nausea or vomiting at home, and medicines are not helpful. EYou cannot drink fluids or start eating again. EYou cannot urinate after 8?12 hours. EYou develop a skin rash. EYou have fever. EYou have increasing redness at the site of your procedure. Get help right away if: EYou have difficulty breathing. EYou have chest pain. EYou have unexpected bleeding. EYou feel that you are having a life-threatening or urgent problem. This information is not intended to replace advice given to you by your health care provider. Make sure you discuss any questions you have with your health care provider. Document Released: 02/08/2002 Document Revised: 04/06/2017 Document Reviewed: 10/16/2016 Elsevier Interactive Patient Education ? 2017 [employer] Electronically signed by Cristian Carreno Conversion Armor Reconnaissance Vehicle Crewman Cerner at 04/08/2023 8:02 PM CDT documented in this encounter Plan of Treatment Not on file documented as of this encounter Visit Diagnoses Not on filedocumented in this encounter
--- OUTSIDE RECORDS SUMMARY | 2025-04-24 09:25 | XMS_ITS | Referral Summary ---
Author Organization [employer] Address [address] [place] [address] Care Team Providers Care Paper Bag Inspector Name Role Phone Unavailable Primary Care Provider [...]
--- OUTSIDE RECORDS SUMMARY | 2025-04-24 09:25 | XMS_ITS | Encounter Summary ---
Author Organization [employer] Address [address] [place] [address] Care Team Providers Care Manager Dish Name Role Phone Unavailable Primary Care Provider Unavailabl e Encounter Details Date Type Department Care Team (Late st Contact Info) Description 02/01/2019 Transcribed Document [facility] [address] [place] [address] Provider, Cristian Ashraf MD Social [...] Miscellaneous Notes * Cerner Conversion Note - [facility] Pascale ProviderMD - 02/01/2019 12:09 PM EDT PAT Adult Entered On: 02/01/2019 11:15 EDT Performed On: 02/01/2019 11:09 EDT by Maryan Slater RN Vital Measurements Temperature Source : Oral Temperature Mode : Fahrenheit Temperature, Fahrenheit : 97 Deg F Clinical Temperature, C : 36.1 Deg C Pulse Method : Non-Invasive BP Device Pulse Source : Radial, Left Peripheral Pulse Rate : 86 bpm Pulse Rhythm : Regular Respiratory Rate : 16 Breaths/Min Blood Pressure Location : Arm, left upper Blood Pressure Source : Non-Invasive BP Device Blood Pressure Position : Sitting Systolic Blood Pressure : 166 mmHg (HI) Diastolic Blood Pressure : 72 mmHg Oxygen Saturation : 97 % Oxygen Therapy Mode : Room air Maryan Slater RN - 02/01/2019 11:09 EDT Height and Weight, Clinical Dosing Height Source : Stated Height Entry Format : [place] Height, Feet : 5 ft(Converted to: 152 cm, 60 Inch) Height, Inches : 8 Inch(Converted to: 0 ft 8 Inch, 20.32 cm) Clinical Height : 172.72 cm Weight Source : Standing scale Weight Entry Format : [place] Clinical Dosing Weight : 84.09 kg Weight, Pounds : 185 lb Body Surface Area (BSA) : 1.98 m2 Body Mass Index : 28.2 kg/m2 (HI) [place] Body Weight : 63 kg Maryan Slater RN - 02/01/2019 11:09 EDT Health Histories Smoking Status : 5-9 cigarettes (between 1/4 to 1/2 pack)/day in last 30 days Smokeless Tobacco Status : Never Desires Tobacco Cessation Medication : No Reason for No Tobacco Cessation Medication : Refuses FDA approved medications Maryan Slater RN - 02/01/2019 11:09 EDT Social History (As Of: 02/01/2019 11:15:18 EDT) Tobacco: 5-9 cigarettes (between 1/4 to [...] Region : No Tuberculosis Symptoms : None Maryan Slater RN - 02/01/2019 11:09 EDT Anesthesia/Transfusion History Family History of Anesthesia Reaction : No prior transfusion(s) Transfusion History : Prior anesthesia without reaction Family History of Anesthesia Reaction : None Maryan Slater RN - 02/01/2019 11:09 EDT Functional Assessment Functional ADL Evaluation Index EBN Bathing : Independent (2) Dressing : Independent (2) Toileting : Independent (2) Transferring Bed or Chair : Independent (2) Continence : Independent (2) Feeding : Independent (2) Maryan Slater RN - 02/01/2019 11:09 EDT ADL Index Score : 12 Maryan Slater RN - 02/01/2019 11:09 EDT Advance Directive Patient has Advance Directive *Q : No, patient refuses Advance Directive information Maryan Slater RN - 02/01/2019 11:09 EDT Spiritual/Cultural Needs Confucianism Preference : Yazdanism Maryan Slater RN - 02/01/2019 11:09 EDT Psychosocial History Currently in Unsafe Situation : No Tried to Harm Yourself in the Past? : No Thoughts of Harming/Killing Yourself : No Maryan Slater RN - 02/01/2019 11:09 EDT Teaching/Learning Assessment Barriers To Learning : None evident Individuals Taught : Patient, Child Readiness to Learn : Cooperative Baseline Knowledge of Topic : Good Readiness to Learn : Explanation, Printed materials Learning Style Preferences Patient : None Maryan Slater RN - 02/01/2019 11:09 EDT Education Topics, Periop Preadmission Perioperative Education Grid CAUTI : Verbalizes understanding IV's : Verbalizes understanding NPO Status/Directions : Verbalizes understanding Pain Management : Verbalizes understanding Postoperative Care Preparations : Verbalizes understanding Preprocedure Preparations : Verbalizes understanding Preprocedure Tests/Labs : Verbalizes understanding Remove Body Piercings : Verbalizes understanding Responsible Adult : Verbalizes understanding Take/Hold Medications Pre-Procedure : Verbalizes understanding Maryan Slater RN - 02/01/2019 11:09 EDT General Info Want Family/Rep/Phys Notified of Admit : No Emergency Contact #1 : Darek Raymudno Emergency Contact #1 Emergency Contact #1 Relationship : spouse Emergency Contact #2 : . Emergency Contact #2 Phone Number : . Emergency Contact #2 Relationship : . Primary Language : Divehi Communication Barrier : None Maryan Slater RN - 02/01/2019 11:09 EDT Avery Scale Avery Sensory Perception : No impairment Avery Moisture : Rarely moist Avery Activity : Walks occasionally Avery Mobility : Slightly limited Avery Nutrition : Adequate Avery Friction and Shear : No apparent problem Avery Score : 20 Maryan Slater RN - 02/01/2019 11:09 EDT Sleep Apnea Risk Assmt Hx of Obstructive Sleep Apnea Diagnosis : No Snore Loudly : No Tired, Fatigued, or Sleepy During Day : Yes Observed Stopping Breathing During Sleep : No Have/Are Being Treated for Hypertension : No Age over 50 Years Old : Yes Gender Male : No Maryan Slater RN - 02/01/2019 11:09 EDT Electronically signed by Cristian Carreno Conversion University Relations Director Cerner at 04/08/2023 8:03 PM CDT documented in this encounter Plan of Treatment Not on file documented as of this encounter Visit Diagnoses Not on filedocumented in this encounter
--- OUTSIDE RECORDS SUMMARY | 2025-04-24 09:25 | XMS_ITS | Encounter Summary ---
Author Organization [employer] Address [address] [place] [address] Care Team Providers Care Retail Consultant Name Role Phone Unavailable Primary Care Provider Unavailabl e Encounter Details Date Type Department Care Team (Late st Contact Info) Description 02/01/2019 Transcribed Document [facility] Radiology [address] [place] [address] Provider, velma Ashraf MD Social History Tobacco Use Types Packs/Day Years Used Date Smoking Tobacco: Never Assessed Comments Unknown Sex and Gender Information Value Date Recorded Sex Assigned at Female 05/13/2022 8:28 PM CDT Legal Sex Female 8:28 PM CDT Gender Identity Female 05/13/2022 8:28 PM CDT Sexual Orientation Not on file documented as of this encounter Miscellaneous Notes * Cerner Conversion Note - [facility] Pascale ProviderMD - 02/01/2019 12:47 PM EDT Event Note Entered On: 02/01/2019 11:50 EDT Performed On: 02/01/2019 11:47 EDT by Maryan Slater RN Event Note Event Date/Time : 02/01/2019 11:30 EDT Description of Event : OR schedule listed pt as having right knee surg, pt states it is the left. David called in or and Dr Mcguire called to verify the limb, david corrected the schedule to state left, Dr Mcguire verified it is the left knee Maryan Slater RN - 02/01/2019 11:47 EDT documented in this encounter Plan of Treatment Not on file documented as of this encounter Visit Diagnoses Not on filedocumented in this encounter
[2025-04-24] MEDS: DENOSUMAB 60 MG/ML SYRINGE SUBCUT (09:28)
[2025-04-24 09:30] VITALS: BP 125/76; PULSE 61; RESP 18; TEMP 36.7; O2SAT 98
== END 2025-04-24 09:32 | disposition home or self-care (01) ==
LOC: INF 09:20
PROVIDERS: PCP Nurse Practitioner Family; Visit Provider Nurse Practitioner Family
DX: M81.0 Age-related osteoporosis without current pathological fracture (principal)
CPT/HCPCS: 96372; J0897

== ENCOUNTER 2025-05-29 08:56 | Outpatient (CLI) | payer MEDICARE, BC, SELFPAY ==
--- OUTSIDE RECORDS SUMMARY | 2025-05-29 09:01 | XMS_ITS | Encounter Summary ---
Author Organization [employer] ([place], [place], [place], [place]) Address [address] [place] [address] Care Team Providers Care Head Of Sales And Marketing Name Role Phone Unavailable Primary Care Provider Unavailabl e Encounter Details Date Type Department Care Team (Late st Contact Info) Description 03/01/2019 Transcribed Document [facility] Radiology [address] [place] [address] Provider, Cristian Ashraf MD Social [...] Miscellaneous Notes * Cerner Conversion Note - Cristian Ashraf ProviderMD - 03/01/2019 4:02 PM EDT [facility] PostOp Summary Primary Physician: LETICIA MART MD-ORT Finalized Date/Time: 03/01/19 17:00:12 Pt. Name: AUBREY JUAN /Sex: 1955 Female Med Rec #: [id number] Physician: LETICIA MART MD-ORT Financial #: [id number] Pt. Type: O Room/Bed: [facility]/ Admit/Disch: 03/01/19 04:54:00 - Institution: [facility] OR PostOp Case Times Entry 1 In PACU II 03/01/19 15:57:00 Ready for PACU II 03/01/19 17:00:00 [...]
--- OUTSIDE RECORDS SUMMARY | 2025-05-29 09:01 | XMS_ITS | Encounter Summary ---
Author Organization [employer] ([place], [place], [place], [place]) Address [address] [place] [address] Care Team Providers Care Glass Bender Name Role Phone Unavailable Primary Care Provider Unavailabl e Encounter Details Date Type Department Care Team (Late st Contact Info) Description 03/01/2019 Transcribed Document [facility] Radiology [address] [place] [address] Provider, Cristian Ashraf MD Social [...] JUAN /Sex: 1955 Female Med Rec #: [id number] Physician: LETICIA MART MD-ORT Financial #: [id number] Pt. Type: O Room/Bed: [facility]/6 Admit/Disch: 03/01/19 04:54:00 - Institution: [facility] PreOp Case Times Entry 1 In Preop 03/01/19 11:05:00 Ready for Holding n/a Room Patient Ready for 03/01/19 11:45:00 Surgery Patient Out of Preop 03/01/19 14:33:00 Patient Out of n/a Holding Room Last Modified By: NICOLE HEADLEY 03/01/19 15:14:12 [facility] PreOp Case Times Audit 03/01/19 15:14:12 Franchise Sales Representative: [id number] Modifier: CATLETDD <+> 1 Patient Out of Preop Finalized By: NICOLE HEADLEY Document Signatures Signed By: NICOLE HEADLEY 03/01/19 15:14 Electronically signed by Ev [facility] Conversion Toy Parts Former Supervisor Cerner at 04/08/2023 8:03 PM CDT documented in this encounter Plan of Treatment Not on file documented as of this encounter Visit Diagnoses Not on filedocumented in this encounter
--- OUTSIDE RECORDS SUMMARY | 2025-05-29 09:01 | XMS_ITS | Clinical Summary ---
Author Organization [employer] ([place], [place], [place], [place]) Address [address] [place] [address] Care Team Providers Care Compounder Sterile Products Name Role Phone Unavailable Primary Care Provider [...]
--- OUTSIDE RECORDS SUMMARY | 2025-05-29 09:01 | XMS_ITS | Encounter Summary ---
Author Organization [employer] ([place], [place], [place], [place]) Address [address] [place] [address] Care Team Providers Care Medical Collector Name Role Phone Unavailable Primary Care Provider Unavailabl e Encounter Details Date Type Department Care Team (Late st Contact Info) Description 03/01/2019 Transcribed Document [facility] Radiology 1 [place] [address] Provider, Cristian Ashraf MD Social [...] Notes * Cerner Conversion Note - Cristian Alvarez MD - 03/01/2019 5:15 PM EDT [...] what activities are safe for you. EPerform bsjxx-vy-nbztde exercises only as directed by your health [...] 05/22/2006 Document Revised: 04/03/2017 Document Reviewed: 10/29/2015 [employer] Interactive Patient Education ? 2017 [employer]. Pharmacology General Anesthesia, Adult, Care After These [...] what activities are safe for you. ETake boah-pux-janotju and prescription medicines only as told by [...] 10/16/2016 Elsevier Interactive Patient Education ? 2017 [employer] documented in this encounter Plan of Treatment Not on file documented as of this encounter Visit Diagnoses Not on filedocumented in this encounter
--- OUTSIDE RECORDS SUMMARY | 2025-05-29 09:01 | XMS_ITS | Encounter Summary ---
Author Organization [employer] ([place], [place], [place], [place]) Address [address] [place] [address] Care Team Providers Care Backend Java Developer Name Role Phone Unavailable Primary Care Provider Unavailabl e Encounter Details Date Type Department Care Team (Late st Contact Info) Description 03/01/2019 Transcribed Document [facility] Radiology [address] [place] [address] Provider, Cristian Ashraf MD Social [...] Miscellaneous Notes * Cerner Conversion Note - [facility] Pascale ProviderMD - 03/01/2019 5:56 PM EDT Event Note Entered On: 03/01/2019 16:57 EDT Performed On: 03/01/2019 16:56 EDT by Ирина Cohen Rn Event Note Event Date/Time : 03/01/2019 16:56 EDT Description of Event : 1656: Pt stated she had crutches at home and states she knows how to ambulate with them. Ирина Cohen Rn - 03/01/2019 16:56 EDT documented in this encounter Plan of Treatment Not on file documented as of this encounter Visit Diagnoses Not on filedocumented in this encounter
--- OUTSIDE RECORDS SUMMARY | 2025-05-29 09:01 | XMS_ITS | Encounter Summary ---
Author Organization [employer] ([place], [place], [place], [place]) Address [address] [place] [address] Care Team Providers Care Bad Cloth Checker Name Role Phone Unavailable Primary Care Provider Unavailabl e Encounter Details Date Type Department Care Team (Late st Contact Info) Description 03/01/2019 Transcribed Document [facility] Radiology 1 [place] [address] Provider, Cristian Ashraf MD Social [...] JUAN /Sex: 1955 Female Med Rec #: [id number] Physician: LETICIA MART MD-ORT Financial #: [id number] Pt. Type: O [facility]/ Admit/Disch: 03/01/19 04:54:00 - [place] [facility] [place] Attendance Entry 1 Entry 2 Entry 3 Case Attendee LETICIA MART [place], Cheryl B, PANCHO SHAW, RN MD-ORT RN Role Performed Surgeon/Proceduralist, Platform Inspector, First Platform Inspector, Second First Time In 03/01/19 14:27:00 03/01/19 14:27:00 03/01/19 14:45:00 Time Out 03/01/19 15:47:00 03/01/19 14:49:00 03/01/19 15:47:00 Procedure Knee Arthroscopy Knee Arthroscopy Knee Arthroscopy Other Attendee Superficial Wound Closed By: Last Modified By: PANCHO SHAW, PANCHO RANDOLPH, PANCHO RANDOLPH, PRECIOUS 03/01/19 15:47:41 03/01/19 15:47:41 03/01/19 15:47:41 Entry 4 Entry 5 Case Attendee ALICIA HARDY ST WHITAKER, CARLY, MASS SPEC Role Performed Scrub, First MASS SPEC/Nurse Solid Plasterer Time In 03/01/19 14:27:00 03/01/19 14:27:00 Time Out 03/01/19 15:47:00 03/01/19 15:47:00 Procedure Knee Arthroscopy Knee Arthroscopy Other Attendee Superficial Wound Closed By: Last Modified By: PANCHO SHAW, PANCHO RANDOLPH, PRECIOUS 03/01/19 15:47:41 03/01/19 15:47:41 [facility] IntraOp Case Attendance Audit 03/01/19 15:47:41 Tank Builder Supervisor: LONGGA Modifier: LONGGA 1 <+> Time Out 1 <*> Procedure Knee Arthroscopy 2 <*> Procedure Knee Arthroscopy 3 <+> Time Out 3 <*> Procedure Knee Arthroscopy 4 <+> Time Out 4 <*> Procedure Knee Arthroscopy 5 <+> Time Out 5 <*> Procedure Knee Arthroscopy 03/01/19 15:07:05 Tank Builder Supervisor: LONGGA Modifier: LONGGA <+> 1 Procedure 2 <*> Procedure Knee Arthroscopy 3 <*> Procedure Knee Arthroscopy 4 <*> Procedure Knee Arthroscopy 5 <*> Procedure Knee Arthroscopy 03/01/19 15:05:50 Tank Builder Supervisor: LONGGA Modifier: LONGGA <+> 3 Case Attendee [...] [facility] IntraOp Case Times Audit 03/01/19 15:47:38 Tank Builder Supervisor: LONGGA Modifier: LONGGA <+> 1 Out Room Time <+> 1 Stop Time 03/01/19 15:37:20 Tank Builder Supervisor: LONGGA Modifier: LONGGA <+> 1 Stop Time 03/01/19 15:07:10 Tank Builder Supervisor: LONGGA Modifier: LONGGA 1 <*> Start Time 03/01/19 15:03:00 03/01/19 15:06:48 Tank Builder Supervisor: LONGGA Modifier: LONGGA <+> 1 Start Time [...] [facility] IntraOp Counts Final Audit 03/01/19 15:37:45 Tank Builder Supervisor: FARHAD Modifier: FARHAD 1 <*> Procedure Knee [...] LEFT KNEE Wound Dressing Item 4x4's, Steristrip, Kerlix/Ruth, Brandon Supplemental Cold pack Applications Applied By [...] IntraOp Fire Risk Assessment Audit 03/01/19 15:14:10 Tank Builder Supervisor: FARHAD Modifier: LONGGA 1 <+> Fire Risk Assessment Complete 1 <*> Fire Risk Assessment Verified By Odette Lott RN 1 <+> Fire Risk Assessment Verified Date/Time 1 <+> High Risk Protocol Implemented [facility] IntraOp General Case Cloth Inspector 1 Case Information OR OR 02 SJE [...] Other Implant NDL FAST FIX SYSTEM Identification [facility] [id number] Description Implant Quantity 2 Implant Site LEFT KNEE Implant [id number] Identification Lot Number Implant Valdez [employer] Nephew:Endo Identification Polygraph Examiner Name: Implant [id number] Identification Catalog Number Implant Has an Yes [...] S[facility] IntraOp Intraoperative Assessment Audit 03/01/19 15:12:37 Tank Builder Supervisor: LONGGA Modifier: LONGGA <+> 1 Patient is [...] - Naropin 0.5% 30ml vial vial - [id number] - [id number] Combo Med List Time Administered Route of IRRIGANT LOCAL LOCAL Administration Dose Dose 3 5 5 Unit of Measure ml ml ml Volume Administered By LETICIA MART VASICEK, VERONICA A, VASICEK, VERONICA A, MD-ORT -ORT -ORT Procedure Irrigation Irrigant Volume In Irrigant Volume Out Last Modified By: LONGPANCHO BOLANOS RN LONGSWORTH, GARY, RN LONGSWORTH, GARY, RN 03/01/19 15:12:03 03/01/19 15:12:03 03/01/19 15:12:03 [...] Positioned By LETICIA MART MD-ORT, PANCHO SHAW, RN, BEAU HUTCHISON, MENDOZA Position Verified Positioning Yes Verified by Anesthesia [...] [facility] IntraOp Surgical Procedures Audit 03/01/19 15:37:21 Tank Builder Supervisor: LONGGA Modifier: LONGGA <+> 1 Stop 03/01/19 15:19:49 Tank Builder Supervisor: LONGGA Modifier: LONGGA 1 <*> Procedure Knee Arthroscopy 1 <*> Additional Procedure Description LEFT KNEE ARTHROSCOPY WITH MEDIAL MENISECTOMY 03/01/19 15:07:32 Tank Builder Supervisor: LONGGA Modifier: LONGGA 1 <*> Procedure Knee [...] Modified By: PANCHO SHAW RN 03/01/19 15:56:44 [facility] IntraOp Tourniquet Audit 03/01/19 15:56:44 Tank Builder Supervisor: FARHAD Modifier: LONGGA <+> 1 Stop Time Case Comments <None> Finalized By: PANCHO SHAW, RN Document Signatures Signed By: PANCHO SHAW RN 03/01/19 15:56 documented in this encounter Plan of Treatment Not on file documented as of this encounter Visit Diagnoses Not on filedocumented in this encounter
--- OUTSIDE RECORDS SUMMARY | 2025-05-29 09:01 | XMS_ITS | Referral Summary ---
Author Organization [employer] ([place], [place], [place], [place]) Address [address] [place] [address] Care Team Providers Care Benefit Director Name Role Phone Unavailable Primary Care Provider [...]
--- OUTSIDE RECORDS SUMMARY | 2025-05-29 09:01 | XMS_ITS | Encounter Summary ---
Author Organization [employer] ([place], [place], [place], [place]) Address [address] [place] [address] Care Team Providers Care Email Marketing Assistant Name Role Phone Unavailable Primary Care Provider Unavailabl e Encounter Details Date Type Department Care Team (Late st Contact Info) Description 02/01/2019 Transcribed Document [facility] Radiology 1 [place] [address] Provider, Cristian Ashraf MD Social [...] Conversion Note - Cristian Alvarez MD - 02/01/2019 12:31 PM EDT [...] 9.7 K/uL 02/01/2019 13:09 Hct 45.6 % HI 02/01/2019 13:09 Hgb 15.0 Gram/dL 02/01/2019 13:09 [...] 10 02/01/2019 13:21 Alk Phos 165 Units/Liter HI 02/01/2019 13:21 ALT 49 Units/Liter 02/01/2019 13:21 [...]
--- OUTSIDE RECORDS SUMMARY | 2025-05-29 09:01 | XMS_ITS | Encounter Summary ---
Author Organization [employer] ([place], [place], [place], [place]) Address [address] [place] [address] Care Team Providers Care Scouring Machine Operator Name Role Phone Unavailable Primary Care Provider Unavailabl e Encounter Details Date Type Department Care Team (Late st Contact Info) Description 03/01/2019 Transcribed Document [facility] Radiology 1 [place] [address] Provider, Cristian Ashraf MD Social [...] Miscellaneous Notes * Cerner Conversion Note - velma Ashraf ProviderMD - 03/01/2019 12:29 PM EDT Pre Procedure Adult Entered On: 03/01/2019 11:33 EDT Performed On: 03/01/2019 11:29 EDT by Teressa Mejia, Rn Height and Weight, Clinical Dosing Height Source : Stated Height Entry Format : [place] Height, Feet : 5 ft(Converted to: 152 cm, 60 Inch) Height, Inches : 8 Inch(Converted to: 0 ft 8 Inch, 20.32 cm) Clinical Height : 172.72 cm Weight Source : Standing scale Weight Entry Format : [place] Clinical Dosing Weight : 81.36 kg Weight, Pounds : 179 lb Body Surface Area (BSA) : 1.95 m2 Body Mass Index : 27.3 kg/m2 (HI) [place] Body Weight : 63 kg Teressa Mejia Rn - 03/01/2019 11:29 EDT Health Histories Smoking Status : 5-9 cigarettes (between 1/4 to 1/2 pack)/day in last 30 days Smokeless Tobacco Status : Never Desires Tobacco Cessation Medication : No Reason for No Tobacco Cessation Medication : Refuses FDA approved medications Implant/Device Type, Trade Economist and Model : none Teressa Mejia Rn [...] Any Spiritual/Cultural Needs or Requests : No Episcopalian Preference : Quaker Teressa Mejia Rn - 03/01/2019 11:29 EDT [...] Obtained From : Patient Primary Language : Haitian Preferred Communication Mode : Verbal Communication Barrier [...] Scale Risk Level : 0-24 Low Risk [place] Interventions : Adequate lighting, Non-slip footwear, Personal items within reach, Room free of clutter/spills, Wheels locked Teressa Mejia Rn - 03/01/2019 11:29 EDT Fall Risk Education Grid Call light use : Verbalizes understanding Nonskid Footwear Use : Verbalizes understanding Teerssa Mejia Rn - 03/01/2019 11:29 EDT Barriers to Learning : None evident Individuals Taught : Patient Readiness to Learn : Cooperative Teaching Method : Explanation Learning Style Preferences Patient : None Teressa Mejia Rn - 03/01/2019 11:29 EDT Valuables [...] rendition version of the form. January Coma [place] Best Motor Response : Obey commands [place] Best Verbal Response : Oriented [place] Eye Opening Response : Spontaneous January Coma Score : 15 Teressa Mejia Rn - 03/01/2019 11:29 EDT Electronically signed by Cristian Carreno Conversion Design Technology Professor Cerner at 04/08/2023 8:03 PM CDT documented in this encounter Plan of Treatment Not on file documented as of this encounter Visit Diagnoses Not on filedocumented in this encounter
--- OUTSIDE RECORDS SUMMARY | 2025-05-29 09:01 | XMS_ITS | Encounter Summary ---
Author Organization [employer] ([place], [place], [place], [place]) Address [address] [place] [address] Care Team Providers Care Career Development Manager Name Role Phone Unavailable Primary Care Provider Unavailabl e Encounter Details Date Type Department Care Team (Late st Contact Info) Description 03/01/2019 Transcribed Document [facility] Radiology 1 [place] [address] Provider, Cristian Ashraf MD Social [...] Miscellaneous Notes * Cerner Conversion Note - [facility] Pascale ProviderMD - 03/01/2019 4:37 PM EDT [...]
--- OUTSIDE RECORDS SUMMARY | 2025-05-29 09:01 | XMS_ITS | Encounter Summary ---
Author Organization [employer] ([place], [place], [place], [place]) Address [address] [place] [address] Care Team Providers Care Hand Thermal Cutter Name Role Phone Unavailable Primary Care Provider Unavailabl e Encounter Details Date Type Department Care Team (Late st Contact Info) Description 02/01/2019 Transcribed Document [facility] Radiology 1 [place] [address] Provider, Cristian Ashraf MD Social [...] Conversion Note - Cristian Ashraf ProviderMD - 02/01/2019 12:09 PM EDT PAT Adult Entered On: 02/01/2019 11:15 EDT Performed On: 02/01/2019 11:09 EDT by Maryan Slater, RN Vital Measurements Temperature Source : Oral [...] Source : Stated Height Entry Format : [place] Height, Feet : 5 ft(Converted to: 152 cm, 60 Inch) Height, Inches : 8 Inch(Converted to: 0 ft 8 Inch, 20.32 cm) Clinical Height : 172.72 cm Weight Source : Standing scale Weight Entry Format : [place] Clinical Dosing Weight : 84.09 kg Weight, Pounds : 185 lb Body Surface Area (BSA) : 1.98 m2 Body Mass Index : 28.2 kg/m2 (HI) [place] Body Weight : 63 kg Maryan Slater [...] RN - 02/01/2019 11:09 EDT Spiritual/Cultural Needs Rastafari Preference : Yazidism Maryan Slater RN - 02/01/2019 11:09 EDT [...] #2 Relationship : . Primary Language : Kyrgyz Communication Barrier : None Maryan Slater RN [...] EDT Electronically signed by Cristian Carreno Conversion Internet E Commerce Specialist Cerner at 04/08/2023 8:03 PM CDT documented in this encounter Plan of Treatment Not on file documented as of this encounter Visit Diagnoses Not on filedocumented in this encounter
--- OUTSIDE RECORDS SUMMARY | 2025-05-29 09:01 | XMS_ITS | Encounter Summary ---
Author Organization [employer] ([place], [place], [place], [place]) Address [address] [place] [address] Care Team Providers Care Proof Technician Helper Name Role Phone Unavailable Primary Care Provider Unavailabl e Encounter Details Date Type Department Care Team (Late st Contact Info) Description 03/01/2019 Transcribed Document [facility] Radiology 1 [place] [address] Provider, Cristian Ashraf MD Social [...] Miscellaneous Notes * Cerner Conversion Note - [facility] Pascale ProviderMD - 03/01/2019 5:34 PM EDT [place] [place] [address] AUBREY JUAN :1955 Visit Time:03/01/2019 What [...] for swelling and pain. Prescriptions given for Como 7.5/325 one tab by mouth every 4-6 hours as needed for pain. Discharge Follow Up Instructions: See discharge pre-printed BGO sheet. Prescriptions attached. Follow-Up Appointments Follow Up with LETICIA MART MD-ORT When 03/11/2019 11:00 AM EDT Where: [address] [facility] [address] [place] [address]- Medications What How Much When Instructions Next [...] activities are safe for you. ??? Take xwfo-hdc-akurept and prescription medicines only as told by [...] 02/08/2002 Document Revised: 04/06/2017 Document Reviewed: 10/16/2016 [employer] Interactive Patient Education ?? 2017 [employer] Knee Arthroscopy, Care After Refer to this [...] activities are safe for you. ??? Perform inwji-qa-zrzner exercises only as directed by your health [...] 10/29/2015 Elsevier Interactive Patient Education ?? 2017 [employer]. acetaminophen and hydrocodone (a SEET a MIN oh fen and kashif droe KOE done) Hycet, Lorcet, Como, Verdrocet, Vicodin, Xodol, Zamicet What is the [...] may report side effects to FDA at 2-347-VDD-3502. What other drugs will affect acetaminophen and [...] affect acetaminophen and hydrocodone, including prescription and rhra-igc-hhozcju medicines, vitamins, and herbal products. Not all [...] to ensure that the information provided by [employer]. ('Multum') is accurate, up-to-date, and complete, but no guarantee is made to that effect. Drug information contained herein may be time sensitive. [employer] information has been compiled for use by healthcare practitioners and consumers in the [place] and therefore [employer] does not warrant that uses outside of the [place] are appropriate, unless specifically indicated otherwise. [employer] drug information does not endorse drugs, diagnose patients or recommend therapy. [employer] drug information is an informational resource designed [...] effective or appropriate for any given patient. [facility] does not assume any responsibility for any aspect of healthcare administered with the aid of information [facility] provides. The information contained herein is not intended to cover all possible uses, directions, precautions, warnings, drug interactions, allergic reactions, or adverse effects. If you have questions about the drugs you are taking, check with your doctor, nurse or pharmacist. Copyright 2152-8174 [facility]. Version: 15.02. Revision Date: 09/20/2018. Emergency Awareness [...] Assistance with quitting is available by contacting 3-422-GURS-NOW. This is a free resource providing counseling, [...] computer, smartphone, or tablet. Just go to Identropy to get started. Questions? Call . Test [...] range between ( 1.0 and 7.0 ) Ector #: 0.68 K/uL -- Normal range between ( 0.24 and 0.82 ) Eos #: 0.06 K/uL -- Normal range between ( 0.04 and 0.54 ) Ector %: 7.0 % -- Normal range between [...] ) Urine Bilirubin Dipstick: Negative Urine Specific [place]: 1.019 -- Normal range between ( 1.005 and 1.030 ) Urine Type.: U [employer] General Chemistry 02/01/19 11:01:00 Hgb A1C: 5.70 [...] 2 Vws: CR Chest 2 Vws Patient Name:CARMENAUBREY I have received this information and was given the opportunity to ask questions. Patient/Airplane Rental Clerk Name: Patient/Airplane Rental Clerk Signature: Relationship to Patient: Clinician/Hospital Airplane Rental Clerk Signature: Date: documented in this encounter Plan of Treatment Not on file documented as of this encounter Visit Diagnoses Not on filedocumented in this encounter
--- OUTSIDE RECORDS SUMMARY | 2025-05-29 09:01 | XMS_ITS | Encounter Summary ---
Author Organization [employer] ([place], [place], [place], [place]) Address [address] [place] [address] Care Team Providers Care Manufacturing Sr Engineer Name Role Phone Unavailable Primary Care Provider Unavailabl e Encounter Details Date Type Department Care Team (Late st Contact Info) Description 02/01/2019 Transcribed Document [facility] Radiology 1 [place] [address] Provider, Cristian Ashraf MD Social [...] Miscellaneous Notes * Cerner Conversion Note - [facility] Pascale ProviderMD - 02/01/2019 12:47 PM EDT [...]
[2025-05-29] MEDS: INCLISIRAN SODIUM 284 MG/1.5 ML SYRINGE SUBCUT (09:15)
[2025-05-29 09:24] VITALS: BP 114/65; PULSE 68; RESP 18; TEMP 36.7; O2SAT 99
== END 2025-05-29 09:27 | disposition home or self-care (01) ==
LOC: INF 08:58
PROVIDERS: PCP Nurse Practitioner Family; Visit Provider Nurse Practitioner
DX: E78.5 Hyperlipidemia, unspecified (principal); I25.10 Atherosclerotic heart disease of native coronary artery without angina pectoris; I49.1 Atrial premature depolarization
CPT/HCPCS: 96372; J1306

== ENCOUNTER 2025-07-05 09:16 | Outpatient (CLI) | payer MEDICARE, BC, SELFPAY ==
--- OUTSIDE RECORDS SUMMARY | 2025-07-05 09:20 | XMS_ITS | Encounter Summary ---
Author Organization [employer] ([place], [place], [place], [place]) Address [address] [place] [address] Care Team Providers Care Retail Experience Specialist Name Role Phone Unavailable Primary Care Provider Unavailabl e Encounter Details Date Type Department Care Team (Late st Contact Info) Description 03/01/2019 Transcribed Document [facility] Radiology 1 [place] [address] Provider, Cristian Ashraf MD Social [...] JUAN /Sex: 1955 Female Med Rec #: [id number] Physician: LETICIA MART MD-ORT Financial #: [id number] Pt. Type: O Room/Bed: [facility]/6 Admit/Disch: 03/01/19 04:54:00 - Institution: [facility] PreOp Case Times Entry 1 In Preop 03/01/19 11:05:00 Ready for Holding n/a Room Patient Ready for 03/01/19 11:45:00 Surgery Patient Out of Preop 03/01/19 14:33:00 Patient Out of n/a Holding Room Last Modified By: NICOLE HEADLEY 03/01/19 15:14:12 [facility] PreOp Case Times Audit 03/01/19 15:14:12 Foundation Director: [id number] Modifier: [email or web address] <+> 1 Patient Out of Preop Finalized By: NICOLE HEADLEY Document Signatures Signed By: NICOLE HEADLEY 03/01/19 15:14 Electronically signed by Ev [facility] Conversion Senior Data Warehouse Developer Cerner at 04/08/2023 8:03 PM CDT documented in this encounter Plan of Treatment Not on file documented as of this encounter Visit Diagnoses Not on filedocumented in this encounter
--- OUTSIDE RECORDS SUMMARY | 2025-07-05 09:20 | XMS_ITS | Encounter Summary ---
Author Organization [employer] ([place], [place], [place], [place]) Address [address] [place] [address] Care Team Providers Care Rigger Chief Name Role Phone Unavailable Primary Care Provider Unavailabl e Encounter Details Date Type Department Care Team (Late st Contact Info) Description 03/01/2019 Transcribed Document [facility] Radiology 1 [place] [address] Provider, Cristian Ashraf MD Social [...] * Cerner Conversion Note - [facility] Pascale ProviderMD - 03/01/2019 5:34 PM EDT [place] [address] [place] [address] AUBREY JUAN :1955 Visit Time:03/01/2019 [...] for swelling and pain. Prescriptions given for [place] 7.5/325 one tab by mouth every 4-6 hours as needed for pain. Discharge Follow Up Instructions: See discharge pre-printed BGO sheet. Prescriptions attached. Follow-Up Appointments Follow Up with LETICIA MART MD-ORT When 03/11/2019 11:00 AM EDT Where: [address] [facility] [address] [place] [address]- Medications What How Much When Instructions Next [...] activities are safe for you. ??? Take vtgk-vxn-ruuyand and prescription medicines only as told by [...] 02/08/2002 Document Revised: 04/06/2017 Document Reviewed: 10/16/2016 [employer] Interactive Patient Education ?? 2017 [employer]. Knee Arthroscopy, Care After Refer to [...] activities are safe for you. ??? Perform rdffa-kd-tylfwn exercises only as directed by your health [...] 10/29/2015 Elsevier Interactive Patient Education ?? 2017 [employer]. acetaminophen and hydrocodone (a SEET a MIN oh fen and kashif droe KOE done) Hycet, Lorcet, [place], Verdrocet, Vicodin, Xodol, Zamicet What is the [...] may report side effects to FDA at 1-876-ZYV-3628. What other drugs will affect acetaminophen and [...] affect acetaminophen and hydrocodone, including prescription and vlpq-puz-knfuqni medicines, vitamins, and herbal products. Not all [...] to ensure that the information provided by [employer]. ('Multum') is accurate, up-to-date, and complete, but no guarantee is made to that effect. Drug information contained herein may be time sensitive. [employer] information has been compiled for use by healthcare practitioners and consumers in the [place] and therefore [employer] does not warrant that uses outside of the [place] are appropriate, unless specifically indicated otherwise. [employer] drug information does not endorse drugs, diagnose patients or recommend therapy. [employer] drug information is an informational resource designed [...] effective or appropriate for any given patient. [facility] does not assume any responsibility for any aspect of healthcare administered with the aid of information [facility] provides. The information contained herein is not intended to cover all possible uses, directions, precautions, warnings, drug interactions, allergic reactions, or adverse effects. If you have questions about the drugs you are taking, check with your doctor, nurse or pharmacist. Copyright 1157-4656 [facility]. Version: 15.02. Revision Date: 09/20/2018. Emergency Awareness [...] Assistance with quitting is available by contacting 8-779-VMEB-NOW. This is a free resource providing counseling, [...] computer, smartphone, or tablet. Just go to stickapps to get started. Questions? Call . Test [...] range between ( 1.0 and 7.0 ) [place] #: 0.68 K/uL -- Normal range between ( 0.24 and 0.82 ) Eos #: 0.06 K/uL -- Normal range between ( 0.04 and 0.54 ) [place] %: 7.0 % -- Normal range between [...] ) Urine Bilirubin Dipstick: Negative Urine Specific [place]estal: 1.019 -- Normal range between ( 1.005 and 1.030 ) Urine Type.: U [employer] General Chemistry 02/01/19 11:01:00 Hgb A1C: 5.70 [...] was given the opportunity to ask questions. Patient/Order Caller Name: Patient/Order Caller Signature: Relationship to Patient: Clinician/Hospital Order Caller Signature: Date: documented in this encounter Plan of Treatment Not on file documented as of this encounter Visit Diagnoses Not on filedocumented in this encounter
--- OUTSIDE RECORDS SUMMARY | 2025-07-05 09:20 | XMS_ITS | Encounter Summary ---
Author Organization [employer] ([place], [place], [place], [place]) Address [address] [place] [address] Care Team Providers Care Last Remodeler Repairer Name Role Phone Unavailable Primary Care Provider Unavailabl e Encounter Details Date Type Department Care Team (Late st Contact Info) Description 03/01/2019 Transcribed Document [facility] Radiology 1 [place] [address] Provider, Cristian Ashraf MD Social [...] JUAN /Sex: 1955 Female Med Rec #: [id number] Physician: LETICIA MART MD-ORT Financial #: [id number] Pt. Type: O Room/Bed: [facility]/ Admit/Disch: 03/01/19 04:54:00 - Institution: [facility] PostOp Case Times Entry 1 In PACU II 03/01/19 15:57:00 Ready for PACU II 03/01/19 17:00:00 Discharge Discharge from PACU 03/01/19 17:00:00 II Last Modified By: Ирина Cohen Rn 03/01/19 17:00:07 Finalized By: Ирина Cohen Rn Document Signatures Signed By: Ирина Cohen Rn 03/01/19 17:00 Electronically signed by Ev [facility] Conversion Bookkeeper Receptionist Cerner at 04/08/2023 8:03 PM CDT documented in this encounter Plan of Treatment Not on file documented as of this encounter Visit Diagnoses Not on filedocumented in this encounter
--- OUTSIDE RECORDS SUMMARY | 2025-07-05 09:20 | XMS_ITS | Encounter Summary ---
Author Organization [employer] ([place], [place], [place], [place]) Address [address] [place] [address] Care Team Providers Care Dye Box Operator Name Role Phone Unavailable Primary Care Provider Unavailabl e Encounter Details Date Type Department Care Team (Late st Contact Info) Description 02/01/2019 Transcribed Document [facility] Radiology [address] [place] [address] Provider, Cristian Ashraf MD Social [...] Miscellaneous Notes * Cerner Conversion Note - [facility] Pascale ProviderMD - 02/01/2019 12:47 PM EDT [...] Maryan Slater RN - 02/01/2019 11:47 EDT Electronically signed by Cristian Carreno Conversion Infection Prevention Practitioner Cerner at 04/08/2023 8:02 PM CDT documented in this encounter Plan of Treatment Not on file documented as of this encounter Visit Diagnoses Not on filedocumented in this encounter
--- OUTSIDE RECORDS SUMMARY | 2025-07-05 09:20 | XMS_ITS | Encounter Summary ---
Author Organization [employer] ([place], [place], [place], [place]) Address [address] [place] [address] Care Team Providers Care Repossessor Name Role Phone Unavailable Primary Care Provider Unavailabl e Encounter Details Date Type Department Care Team (Late st Contact Info) Description 03/01/[address] [facility] Radiology 1 [place] [address] Provider, Cristian Ashraf MD Social [...] what activities are safe for you. EPerform [id number] exercises only as directed by your health [...] 05/22/2006 Document Revised: 04/03/2017 Document Reviewed: 10/29/2015 [employer] Interactive Patient Education ? 2017 [employer]. Pharmacology General Anesthesia, Adult, Care After These [...] what activities are safe for you. ETake nbmu-ayy-[id number] and prescription medicines only as told by [...] 10/16/2016 Elsevier Interactive Patient Education ? 2017 [employer] documented in this encounter Plan of Treatment Not on file documented as of this encounter Visit Diagnoses Not on filedocumented in this encounter
--- OUTSIDE RECORDS SUMMARY | 2025-07-05 09:20 | XMS_ITS | Encounter Summary ---
Author Organization [employer] ([place], [place], [place], [place]) Address [address] [place] [address] Care Team Providers Care Collar Setter Name Role Phone Unavailable Primary Care Provider Unavailabl e Encounter Details Date Type Department Care Team (Late st Contact Info) Description 03/01/2019 Transcribed Document [facility] Radiology 1 [place] [address] Provider, Cristian Ashraf MD Social [...] Miscellaneous Notes * Cerner Conversion Note - [facility] Pascale ProviderMD - 03/01/2019 4:37 PM EDT [...]
--- OUTSIDE RECORDS SUMMARY | 2025-07-05 09:20 | XMS_ITS | Encounter Summary ---
Author Organization [employer] ([place], [place], [place], [place]) Address [address] [place] [address] Care Team Providers Care Gasateria Attendant Name Role Phone Unavailable Primary Care Provider Unavailabl e Encounter Details Date Type Department Care Team (Late st Contact Info) Description 03/01/2019 Transcribed Document [facility] Radiology 1 [place] [address] Provider, Cristian Ashraf MD Social [...] JUAN /Sex: 1955 Female Med Rec #: [id number] Physician: LETICIA MART MD-ORT Financial #: [id number] Pt. Type: O Room/Bed: [facility]/ Admit/Disch: 03/01/19 04:54:00 - Institution: [facility] IntraOp Case Attendance Entry 1 Entry 2 Entry 3 Case Attendee LETICIA MART [place], Cheryl B, PANCHO SHAW, RN MD-ORT RN Role Performed Surgeon/Proceduralist, Spoon Maker, First Spoon Maker, Second First Time In 03/01/19 14:27:00 03/01/19 14:27:00 03/01/19 14:45:00 Time Out 03/01/19 15:47:00 03/01/19 14:49:00 03/01/19 15:47:00 Procedure Knee Arthroscopy Knee Arthroscopy Knee Arthroscopy Other Attendee Superficial Wound Closed By: Last Modified By: PANCHO SHAW, PANCHO RANDOLPH, PANCHO RANDOLPH, PRECIOUS 03/01/19 15:47:41 03/01/19 15:47:41 03/01/19 15:47:41 Entry 4 Entry 5 Case Attendee ALICIA HARDY ST WHITAKER, CARLY, LEGAL INTERNSHIP Role Performed Scrub, First LEGAL INTERNSHIP/Nurse Real Estate Leasing Agent Time In 03/01/19 14:27:00 03/01/19 14:27:00 Time Out 03/01/19 15:47:00 03/01/19 15:47:00 Procedure Knee Arthroscopy Knee Arthroscopy Other Attendee Superficial Wound Closed By: Last Modified By: PANCHO SHAW, PANCHO RANDOLPH, PRECIOUS 03/01/19 15:47:41 03/01/19 15:47:41 [facility] IntraOp Case Attendance Audit 03/01/19 15:47:41 Information And Data Architect Analyst: LONGGA Modifier: LONGGA 1 <+> Time Out 1 <*> Procedure Knee Arthroscopy 2 <*> Procedure Knee Arthroscopy 3 <+> Time Out 3 <*> Procedure Knee Arthroscopy 4 <+> Time Out 4 <*> Procedure Knee Arthroscopy 5 <+> Time Out 5 <*> Procedure Knee Arthroscopy 03/01/19 15:07:05 Information And Data Architect Analyst: LONGGA Modifier: LONGGA <+> 1 Procedure 2 <*> Procedure Knee Arthroscopy 3 <*> Procedure Knee Arthroscopy 4 <*> Procedure Knee Arthroscopy 5 <*> Procedure Knee Arthroscopy 03/01/19 15:05:50 Information And Data Architect Analyst: LONGGA Modifier: LONGGA <+> 3 Case Attendee [...] [facility] IntraOp Case Times Audit 03/01/19 15:47:38 Information And Data Architect Analyst: LONGGA Modifier: LONGGA <+> 1 Out Room Time <+> 1 Stop Time 03/01/19 15:37:20 Information And Data Architect Analyst: LONGGA Modifier: LONGGA <+> 1 Stop Time 03/01/19 15:07:10 Information And Data Architect Analyst: LONGGA Modifier: LONGGA 1 <*> Start Time 03/01/19 15:03:00 03/01/19 15:06:48 Information And Data Architect Analyst: LONGGA Modifier: LONGGA <+> 1 Start Time [...] [facility] IntraOp Counts Final Audit 03/01/19 15:37:45 Information And Data Architect Analyst: FARHAD Modifier: FARHAD 1 <*> Procedure Knee [...] IntraOp Fire Risk Assessment Audit 03/01/19 15:14:10 Information And Data Architect Analyst: FARHAD Modifier: LONGGA 1 <+> Fire Risk Assessment Complete 1 <*> Fire Risk Assessment Verified By Odette Lott RN 1 <+> Fire Risk Assessment Verified Date/Time 1 <+> High Risk Protocol Implemented [facility] IntraOp General Case Metal Flooring Installer 1 Case Information OR OR 02 [facility] [...] Other Implant NDL FAST FIX SYSTEM Identification [facility] [phone] Description Implant Quantity 2 Implant Site LEFT KNEE Implant [id number] Identification Lot Number Implant [employer] Nephew:Endo Identification Oracle Software Engineer Name: Implant [id number] Identification Catalog Number Implant Has an Yes [...] [facility] IntraOp Intraoperative Assessment Audit 03/01/19 15:12:37 Information And Data Architect Analyst: LONGGA Modifier: LONGGA <+> 1 Patient is [...] - Naropin 0.5% 30ml vial vial - [id number] - [id number] Combo Med List Time Administered Route of [...] [facility] IntraOp Surgical Procedures Audit 03/01/19 15:37:21 Information And Data Architect Analyst: LONGGA Modifier: LONGGA <+> 1 Stop 03/01/19 15:19:49 Information And Data Architect Analyst: LONGGA Modifier: LONGGA 1 <*> Procedure Knee Arthroscopy 1 <*> Additional Procedure Description LEFT KNEE ARTHROSCOPY WITH MEDIAL MENISECTOMY 03/01/19 15:07:32 Information And Data Architect Analyst: LONGGA Modifier: LONGGA 1 <*> Procedure Knee [...] 15:56:44 [facility] IntraOp Tourniquet Audit 03/01/19 15:56:44 Information And Data Architect Analyst: FARHAD Modifier: LONGGA <+> 1 Stop Time Case Comments <None> Finalized By: PANCHO SHAW, RN Document Signatures Signed By: PANCHO SHAW RN 03/01/19 15:56 documented in this encounter Plan of Treatment Not on file documented as of this encounter Visit Diagnoses Not on filedocumented in this encounter
--- OUTSIDE RECORDS SUMMARY | 2025-07-05 09:20 | XMS_ITS | Clinical Summary ---
Author Organization [employer] ([place], [place], [place], [place]) Address [address] [place] [address] Care Team Providers Care Seat Maker Name Role Phone Unavailable Primary Care Provider [...]
--- OUTSIDE RECORDS SUMMARY | 2025-07-05 09:20 | XMS_ITS | Clinical Summary ---
Author Organization [facility] Address [address] [place] [address] Care Team Providers Care Package Pick Up Name Role Phone Unavailable Primary Care Provider Unavailabl e Social History Tobacco Use Types Packs/Day Years Used Date Smoking Tobacco: Never Assessed Abuse Screen Answer Date Recorded Unsafe at Home or Work/School Not on file Feels Threatened by Someone? Not on file 08/2023 Does Anyone Keep You from Co ntacting Others or Doint Things Outside the Home? Not on file 08/25/2023 Physical Sign of Abuse Present Not on file 1 Housing Stability Answer Date Recorded Current Living Arrangements Not on file 08/16 Potentially Unsafe Housing Conditions Not on rosanne e 08/25/2023 Family and Community Support Answer Hilario e Recorded Help with Day-to-Day Activities Not on file 08/25/2023 Lonely or Isolated Not on file 08/25/2023 Employment Answer Date Recorded Do you want help finding or keeping work or a jeffery b? Not on file 08/25/2023 Disabilities Answer Date Recorded Concentrating, Remembering, or Making Decisions Difficulty Not on file 08/25/2023 Doing Errands Independently Difficulty Not on fi le 08/25/2023 Education Answer Date Recorded Help with school or training? Not on file Preferred Language Not on file 08/25/2023 Comments Unknown Sex and Gender Information Value Date Recorded Sex Assigned at Not on file Legal Sex Female 1:52 PM EDT Gender Identity Not on file Sexual Orientation Not on file Plan of Treatment Health Maintenance Due Date Last Done Comments ANNUAL PHYSICAL 1955 DXA SCAN 1955 HEPATITIS C SCREENING 1955 TDAP/TD VACCINES (1 - Tdap) 1974 COLOGUARD 2000 COLON CANCER SCREENING 5 YEAR SIGMOIDOSCOPY 2000 COLONOSCOPY 2000 COL[address]AL CANCER SCREENING 2000 CT COLONOGRAPHY 2000 FECAL OCCULT BLOOD TEST 2000 FIT Testing (1 year) 2000 Pneumococcal Vaccine 50+ (1 of 1 - PCV) 2005 ZOSTER VACCINE (1 of 2) 2005 MAMMOGRAM 03/23/2017 03/23/2015 COVID-19 Vaccine (1 - season) 2024 INFLUENZA VACCINE 08/16/2025 Procedures Procedure Name Priority Date/Time Associated Diagnosis Comments MAMMO DIAGNOSTIC BILATERAL W CAD Routine 03/23/2015 12:51 PM EDT from Last 3 Months or Most Recently Relevant to Health Maintenance Results * MAMMOGRAPHY DIAGNOSTIC BILATERAL (03/23/2015 12:51 PM EDT) Anatomical Region Laterality Modality Breast Bilateral Mammography 03/23/2015 12:5 1 PM EDT Narrative 03/23/2015 4:51 PM EDT EXAMINATION: BILATERAL DIAGNOSTIC DIGITAL MAMMOGRAM AND LEFT BREAST ULTRASOUND HISTORY: 59-year-old patient who presents for further evaluation of green/brown spontaneous left nipple discharge. The patient has no personal history of breast cancer. Her mother was diagnosed with breast cancer at age 58. TECHNIQUE: Low dose full field digital breast tomosynthesis imaging was performed with 2D and 3D acquisitions. 2-D/3-D left MLO and left CC focal compression views and a 2-D/3-D left ML view were also obtained. Furthermore, focused sonographic images were obtained of the left 8:00 retroareolar region. COMPARISON: mammograms dated 06/03/2001, 08/16/2002, 01/07/2011, and 07/02/2011. FINDINGS: There are scattered areas of fibroglandular density. The bilateral fibroglandular pattern is stable. There is stable nodular asymmetry in the left 8:00 region. This finding has been present since 2000. No new or suspicious mammographic findings are identified. Focused sonographic imaging of the left 8:00 region demonstrates clustered cysts embedded within an island of fibroglandular tissue. This finding corresponds to nodularity noted mammographically. Focused sonographic imaging of the left retroareolar region demonstrates unremarkable ducts. There is no evidence of duct ectasia or an intraductal mass to correlate to the patient's history of nipple discharge. No suspicious sonographic findings were identified. IMPRESSION- Benign bilateral mammogram and benign focused ultrasound imaging of the left breast. RECOMMENDATION: Annual screening mammography and clinical follow-up of left nipple discharge. BI-RADS CATEGORY II, BENIGN CAD was utilized. The standard false-negative rate of mammography is between 10% and 25%. Complex patterns or increased breast density will markedly elevate the false-negative rate of mammography. A results letter, in lay terminology, will be given to the patient at the conclusion of the exam. DE: 03/23/2015 Reading Radiologist- NICOLAS MENDEZ Releasing Radiologist- NICOLAS MENDEZ Released Date Time- 03/27/15 3496 Admitting Clerk- LizzieEEllen us Benjamin Tinajero MD [facility] MAMMOGRAPHY ORDERABLES Mia kahlil Result from Last 3 Months or Most Recently Relevant to Health Maintenance
--- OUTSIDE RECORDS SUMMARY | 2025-07-05 09:20 | XMS_ITS | Encounter Summary ---
Author Organization [employer] ([place], [place], [place], [place]) Address [address] [place] [address] Care Team Providers Care Fruit Rancher Name Role Phone Unavailable Primary Care Provider Unavailabl e Encounter Details Date Type Department Care Team (Late st Contact Info) Description 03/01/2019 Transcribed Document [facility] Radiology 1 [place] [address] Provider, Cristian Ashraf MD Social [...] Source : Stated Height Entry Format : [place] Height, Feet : 5 ft(Converted to: 152 cm, 60 Inch) Height, Inches : 8 Inch(Converted to: 0 ft 8 Inch, 20.32 cm) Clinical Height : 172.72 cm Weight Source : Standing scale Weight Entry Format : [place] Clinical Dosing Weight : 81.36 kg Weight, Pounds : 179 lb Body Surface Area (BSA) : 1.95 m2 Body Mass Index : 27.3 kg/m2 (HI) [place] Body Weight : 63 kg Teressa Mejia Rn - 03/01/2019 11:29 EDT Health Histories Smoking Status : 5-9 cigarettes (between 1/4 to 1/2 pack)/day in last 30 days Smokeless Tobacco Status : Never Desires Tobacco Cessation Medication : No Reason for No Tobacco Cessation Medication : Refuses FDA approved medications Implant/Device Type, [employer] Core Transformer Assembler and Model : none Teressa Mejia Rn [...] Any Spiritual/Cultural Needs or Requests : No Restoration Preference : [place] Teressa Mejia Rn - 03/01/2019 11:29 EDT [...] Obtained From : Patient Primary Language : Tajik Preferred Communication Mode : Verbal Communication Barrier [...] Scale Risk Level : 0-24 Low Risk [place] Fall Interventions : Adequate lighting, Non-slip footwear, [...] the text rendition version of the form. [place] Coma January Best Motor Response : Obey commands [place] Best Verbal Response : Oriented [place] Eye Opening Response : Spontaneous January Coma Score : 15 Teressa Mejia Rn - 03/01/2019 11:29 EDT documented in this encounter Plan of Treatment Not on file documented as of this encounter Visit Diagnoses Not on filedocumented in this encounter
--- OUTSIDE RECORDS SUMMARY | 2025-07-05 09:20 | XMS_ITS | Encounter Summary ---
Author Organization [employer] ([place], [place], [place], [place]) Address [address] [place] [address] Care Team Providers Care Patient Placement Coordinator Name Role Phone Unavailable Primary Care Provider Unavailabl e Encounter Details Date Type Department Care Team (Late st Contact Info) Description 02/01/2019 Transcribed Document [facility] Radiology 1 [place] [address] Provider, Cristian Ashraf MD [...] Source : Stated Height Entry Format : [place] Height, Feet : 5 ft(Converted to: 152 cm, 60 Inch) Height, Inches : 8 Inch(Converted to: 0 ft 8 Inch, 20.32 cm) Clinical Height : 172.72 cm Weight Source : Standing scale Weight Entry Format : [place] Clinical Dosing Weight : 84.09 kg Weight, Pounds : 185 lb Body Surface Area (BSA) : 1.98 m2 Body Mass Index : 28.2 kg/m2 (HI) [place] Body Weight : 63 kg Maryan Slater [...] RN - 02/01/2019 11:09 EDT Spiritual/Cultural Needs Zoroastrianism Preference : Adventism Maryan Slater RN - 02/01/2019 11:09 EDT [...] #2 Relationship : . Primary Language : Malagasy Communication Barrier : None Maryan Slater RN [...] Maryan Slater RN - 02/01/2019 11:09 EDT documented in this encounter Plan of Treatment Not on file documented as of this encounter Visit Diagnoses Not on filedocumented in this encounter
--- OUTSIDE RECORDS SUMMARY | 2025-07-05 09:20 | XMS_ITS | Encounter Summary ---
Author Organization [employer] ([place], [place], [place], [place]) Address [address] [place] [address] Care Team Providers Care Electronics Instructor Name Role Phone Unavailable Primary Care Provider Unavailabl e Encounter Details Date Type Department Care Team (Late st Contact Info) Description 03/01/2019 Transcribed Document [facility] Radiology [address] [place] [address] Provider, Cristian Ashraf MD Social [...] Miscellaneous Notes * Cerner Conversion Note - [facility] Pascale ProviderMD - 03/01/2019 5:56 PM EDT [...]
--- OUTSIDE RECORDS SUMMARY | 2025-07-05 09:20 | XMS_ITS | Referral Summary ---
Author Organization [employer] ([place], [place], [place], [place]) Address [address] [place] [address] Care Team Providers Care Pipe Turner Name Role Phone Unavailable Primary Care Provider [...]
--- OUTSIDE RECORDS SUMMARY | 2025-07-05 09:20 | XMS_ITS | Encounter Summary ---
Author Organization [employer] ([place], [place], [place], [place]) Address [address] [place] [address] Care Team Providers Care Linotype Mechanic Name Role Phone Unavailable Primary Care Provider Unavailabl e Encounter Details Date Type Department Care Team (Late st Contact Info) Description 02/01/2019 Transcribed Document [facility] Radiology [address] [place] [address] Provider, Cristian Ashraf MD Social [...]
[2025-07-05 10:07] LABS: Hematocrit 46.8 % (37.0-47.0); Hemoglobin 15.5 g/dL (12.2-16.2); Immature Granulocytes % 0.2 %; Mean Corpuscular HGB Conc 33.1 g/dL (31.8-35.4); Mean Corpuscular Hemoglobin 31.6 pg (27.0-31.2); Mean Corpuscular Volume 95.5 fl (81-99); Nucleated Red Blood Cells % 0 %; Platelet Count 257 K/mm3 (142-424); Red Blood Count 4.90 M/mm3 (4.20-5.40); Red Cell Distribution Width-SD 45.8 fL; White Blood Count 8.2 K/mm3 (4.8-10.8)
[2025-07-05 10:35] LABS: Albumin Level 4.4 g/dl (3.5-5.0); Chloride 113 mmol/L (98-107); Potassium 4.3 mmoL/L (3.5-5.1); Sodium 143 mmol/L (136-145)
[2025-07-05 10:38] LABS: Alanine Aminotransferase 48 U/L (12-78); Alkaline Phosphatase 124 U/L (38-126); Anion Gap 15.3 mEq/L (5-15); Aspartate Amino Transferase 59 U/L (14-36); Bilirubin,Direct 0.4 mg/dl (0.0-0.4); Bilirubin,Indirect 0.4 mg/dL (0.0-0.9); Bilirubin,Total 0.8 mg/dl (0.2-1.3); Bilirubin,Unconjugated 0.4 mg/dL (0.0-1.1); Blood Urea Nitrogen 13 mg/dl (7-17); Calcium 9.8 mg/dl (8.4-10.2); Carbon Dioxide 19 mmol/L (22.0-30.0); Cholesterol 130 mg/dl (140-200); Creatinine,Serum 0.60 mg/dl (0.52-1.04); Estimated Glomerular Filt Rate 99 ml/min (>60); GFR (African American) 120 ML/MIN (>60); Glucose 92 mg/dl (74-100); Magnesium 2.1 mg/dl (1.6-2.3); Total Protein,Serum 7.3 g/dl (6.3-8.2); Triglycerides 120 mg/dl (30-150)
[2025-07-05 10:39] LABS: HDL Cholesterol 50 mg/dl (40-60)
[2025-07-05 11:09] LABS: Thyroid Stimulating Hormone 3.04 uIU/mL (0.465-4.68)
[2025-07-05 13:26] LABS: Free T4 (Free Thyroxine) 1.15 ng/dl (0.78-2.19)
== END 2025-07-05 23:59 | disposition home or self-care (01) ==
LOC: LAB 09:18
PROVIDERS: PCP Nurse Practitioner Family; Visit Provider Nurse Practitioner
DX: I49.3 Ventricular premature depolarization (principal); I47.19 Other supraventricular tachycardia; I49.1 Atrial premature depolarization; I25.10 Atherosclerotic heart disease of native coronary artery without angina pectoris; E78.5 Hyperlipidemia, unspecified
CPT/HCPCS: 36415; 80048; 80061; 80076; 83735; 84439; 84443; 85025; 93270

== ENCOUNTER 2025-07-10 12:54 | Outpatient (CLI) | payer MEDICARE, BC, SELFPAY ==
--- OUTSIDE RECORDS SUMMARY | 2025-07-10 12:59 | XMS_ITS | Encounter Summary ---
Author Organization [employer] ([place], [place], [place], [place]) Address [address] [place] [address] Care Team Providers Care Public Health Aide Name Role Phone Unavailable Primary Care Provider Unavailabl e Encounter Details Date Type Department Care Team (Late st Contact Info) Description 03/01/2019 Transcribed Document [facility] Radiology [address] [place] [address] Provider, Cristian Ashraf MD Social [...] Source : Stated Height Entry Format : [place] Height, Feet : 5 ft(Converted to: 152 cm, 60 Inch) Height, Inches : 8 Inch(Converted to: 0 ft 8 Inch, 20.32 cm) Clinical Height : 172.72 cm Weight Source : Standing scale Weight Entry Format : [place] Clinical Dosing Weight : 81.36 kg Weight, Pounds : 179 lb Body Surface Area (BSA) : 1.95 m2 Body Mass Index : 27.3 kg/m2 (HI) [place] Body Weight : 63 kg Teressa Mejia Rn - 03/01/2019 11:29 EDT Health Histories Smoking Status : 5-9 cigarettes (between 1/4 to 1/2 pack)/day in last 30 days Smokeless Tobacco Status : Never Desires Tobacco Cessation Medication : No Reason for No Tobacco Cessation Medication : Refuses FDA approved medications Implant/Device Type, Manufacturing Quality Engineer and Model : none Teressa Mejia Rn [...] Any Spiritual/Cultural Needs or Requests : No Restorationist Preference : Rastafari Teressa Mejia Rn - 03/01/2019 11:29 EDT [...] Obtained From : Patient Primary Language : Botswanan Preferred Communication Mode : Verbal Communication Barrier [...] Scale Risk Level : 0-24 Low Risk [place] Fall Interventions : Adequate lighting, Non-slip footwear, [...] the text rendition version of the form. [place] Coma January Best Motor Response : Obey commands [place] Best Verbal Response : Oriented [place] Eye Opening Response : Spontaneous January Coma Score : 15 Teressa Mejia Rn - 03/01/2019 11:29 EDT documented in this encounter Plan of Treatment Not on file documented as of this encounter Visit Diagnoses Not on filedocumented in this encounter
--- OUTSIDE RECORDS SUMMARY | 2025-07-10 12:59 | XMS_ITS | Encounter Summary ---
Author Organization [employer] ([place], [place], [place], [place]) Address [address] [place] [address] Care Team Providers Care Molding Associate Name Role Phone Unavailable Primary Care Provider Unavailabl e Encounter Details Date Type Department Care Team (Late st Contact Info) Description 03/01/2019 Transcribed Document [facility] Radiology [address] [place] [address] Provider, Cristian Ashraf MD Social [...] [facility] Pascale ProviderMD - 03/01/2019 4:37 PM EDT [...] Trans: 03/01/2019 20:03:50 CC1: Kait Mcguire M.D. Electronically signed by Cristian Carreno Conversion Electronics Department Manager [employer] at 04/08/2023 8:03 PM CDT documented in this encounter Plan of Treatment Not on file documented as of this encounter Visit Diagnoses Not on filedocumented in this encounter
--- OUTSIDE RECORDS SUMMARY | 2025-07-10 12:59 | XMS_ITS | Encounter Summary ---
Author Organization [employer] ([place], [place], [place], [place]) Address [address] [place] [address] Care Team Providers Care Supervisor Data Processing Name Role Phone Unavailable Primary Care Provider Unavailabl e Encounter Details Date Type Department Care Team (Late st Contact Info) Description 03/01/[address] [facility] Radiology [address] [place] [address] Provider, Cristian Ashraf MD Social [...] JUAN /Sex: 1955 Female Med Rec #: [id number] Physician: LETICIA MART MD-ORT Financial #: [id number] Pt. Type: O Room/Bed: [facility]/ Admit/Disch: 03/01/19 04:54:00 - Institution: [facility] IntraOp Case Attendance Entry 1 Entry 2 Entry 3 Case Attendee LETICIA MART [place]en[place], Cheryl B, PANCHO SHAW, RN MD-ORT RN Role Performed Surgeon/Proceduralist, Battery Installer, First Battery Installer, Second First Time In 03/01/19 14:27:00 03/01/19 14:27:00 03/01/19 14:45:00 Time Out 03/01/19 15:47:00 03/01/19 14:49:00 03/01/19 15:47:00 Procedure Knee Arthroscopy Knee Arthroscopy Knee Arthroscopy Other Attendee Superficial Wound Closed By: Last Modified By: PANCHO SHAW, PANCHO RANDOLPH, PANCHO RANDOLPH, PRECIOUS 03/01/19 15:47:41 03/01/19 15:47:41 03/01/19 15:47:41 Entry 4 Entry 5 Case Attendee ALICIA HARDY ST WHITAKER, CARLY, DISTRICT CAPTAIN Role Performed Scrub, First DISTRICT CAPTAIN/Nurse Package Delivery Room Service Runner Time In 03/01/19 14:27:00 03/01/19 14:27:00 Time Out 03/01/19 15:47:00 03/01/19 15:47:00 Procedure Knee Arthroscopy Knee Arthroscopy Other Attendee Superficial Wound Closed By: Last Modified By: PANCHO SHAW, PANCHO RANDOLPH, PRECIOUS 03/01/19 15:47:41 03/01/19 15:47:41 [facility] IntraOp Case Attendance Audit 03/01/19 15:47:41 Rose Grading Supervisor: LONGGA Modifier: LONGGA 1 <+> Time Out 1 <*> Procedure Knee Arthroscopy 2 <*> Procedure Knee Arthroscopy 3 <+> Time Out 3 <*> Procedure Knee Arthroscopy 4 <+> Time Out 4 <*> Procedure Knee Arthroscopy 5 <+> Time Out 5 <*> Procedure Knee Arthroscopy 03/01/19 15:07:05 Rose Grading Supervisor: LONGGA Modifier: LONGGA <+> 1 Procedure 2 <*> Procedure Knee Arthroscopy 3 <*> Procedure Knee Arthroscopy 4 <*> Procedure Knee Arthroscopy 5 <*> Procedure Knee Arthroscopy 03/01/19 15:05:50 Rose Grading Supervisor: LONGGA Modifier: LONGGA <+> 3 Case [...] [facility] IntraOp Case Times Audit 03/01/19 15:47:38 Rose Grading Supervisor: LONGGA Modifier: LONGGA <+> 1 Out Room Time <+> 1 Stop Time 03/01/19 15:37:20 Rose Grading Supervisor: LONGGA Modifier: LONGGA <+> 1 Stop Time 03/01/19 15:07:10 Rose Grading Supervisor: LONGGA Modifier: LONGGA 1 <*> Start Time 03/01/19 15:03:00 03/01/19 15:06:48 Rose Grading Supervisor: LONGGA Modifier: LONGGA <+> 1 Start [...] [facility] IntraOp Counts Final Audit 03/01/19 15:37:45 Rose Grading Supervisor: FARHAD Modifier: FARHAD 1 <*> Procedure [...] IntraOp Fire Risk Assessment Audit 03/01/19 15:14:10 Rose Grading Supervisor: FARHAD Modifier: LONGGA 1 <+> Fire Risk Assessment Complete 1 <*> Fire Risk Assessment Verified By Odette Lott RN 1 <+> Fire Risk Assessment Verified Date/Time 1 <+> High Risk Protocol Implemented [facility] IntraOp General Case Photonics Technician 1 Case Information OR OR 02 [facility] [...] Other Implant NDL FAST FIX SYSTEM Identification [facility] [id number] Description Implant Quantity 2 Implant Site LEFT KNEE Implant [id number] Identification Lot Number Implant [employer]hew:Endo Identification Head Start Teacher Name: Implant [id number] Identification Catalog Number Implant Has an Yes [...] [facility] IntraOp Intraoperative Assessment Audit 03/01/19 15:12:37 Rose Grading Supervisor: LONGGA Modifier: LONGGA <+> 1 Patient [...] - Naropin 0.5% 30ml vial vial - [id number] - [id number] Combo Med List Time Administered Route of [...] [facility] IntraOp Surgical Procedures Audit 03/01/19 15:37:21 Rose Grading Supervisor: LONGGA Modifier: LONGGA <+> 1 Stop 03/01/19 15:19:49 Rose Grading Supervisor: LONGGA Modifier: LONGGA 1 <*> Procedure Knee Arthroscopy 1 <*> Additional Procedure Description LEFT KNEE ARTHROSCOPY WITH MEDIAL MENISECTOMY 03/01/19 15:07:32 Rose Grading Supervisor: LONGGA Modifier: LONGGA 1 <*> Procedure [...] 15:56:44 [facility] IntraOp Tourniquet Audit 03/01/19 15:56:44 Rose Grading Supervisor: FARHAD Modifier: LONGGA <+> 1 Stop Time Case Comments <None> Finalized By: PANCHO SHAW, RN Document Signatures Signed By: PANCHO SHAW RN 03/01/19 15:56 Electronically signed by Tyrese Carreno Conversion Adult Family Home Program Manager Cerner at 04/08/2023 8:02 PM CDT documented in this encounter Plan of Treatment Not on file documented as of this encounter Visit Diagnoses Not on filedocumented in this encounter
--- OUTSIDE RECORDS SUMMARY | 2025-07-10 12:59 | XMS_ITS | Encounter Summary ---
Author Organization [employer] ([place], [place], [place], [place]) Address [address] [place] [address] Care Team Providers Care Cross Enterprise Integrator Name Role Phone Unavailable Primary Care Provider Unavailabl e Encounter Details Date Type Department Care Team (Late st Contact Info) Description 03/01/2019 Transcribed Document [facility] Radiology 1 [place] [address] Provider, Cristian Ashraf MD Social [...] JUAN /Sex: 1955 Female Med Rec #: [id number] Physician: LETICIA MART MD-ORT Financial #: [id number] Pt. Type: O Room/Bed: [facility]/ Admit/Disch: 03/01/19 04:54:00 - Institution: [facility] PostOp Case Times Entry 1 In PACU II 03/01/19 15:57:00 Ready for PACU II 03/01/19 17:00:00 Discharge Discharge from PACU 03/01/19 17:00:00 II Last Modified By: Ирина Cohen Rn 03/01/19 17:00:07 Finalized By: Ирина Cohen Rn Document Signatures Signed By: Ирина Cohen Rn 03/01/19 17:00 Electronically signed by Ev [facility] Conversion Pulp Piler Cerner at 04/08/2023 8:03 PM CDT documented in this encounter Plan of Treatment Not on file documented as of this encounter Visit Diagnoses Not on filedocumented in this encounter
--- OUTSIDE RECORDS SUMMARY | 2025-07-10 12:59 | XMS_ITS | Referral Summary ---
Author Organization [employer] ([place], [place], [place], [place]) Address [address] [place] [address] Care Team Providers Care Clinical Data Management Manager Name Role Phone Unavailable Primary Care [...]
--- OUTSIDE RECORDS SUMMARY | 2025-07-10 12:59 | XMS_ITS | Encounter Summary ---
Author Organization [employer] ([place], [place], [place], [place]) Address [address] [place] [address] Care Team Providers Care Street Car Mechanic Name Role Phone Unavailable Primary Care Provider Unavailabl e Encounter Details Date Type Department Care Team (Late st Contact Info) Description 02/01/2019 Transcribed Document [facility] Radiology 1 [place] [address] Provider, Cristian Ashraf MD Social [...] Source : Stated Height Entry Format : [place] Height, Feet : 5 ft(Converted to: 152 cm, 60 Inch) Height, Inches : 8 Inch(Converted to: 0 ft 8 Inch, 20.32 cm) Clinical Height : 172.72 cm Weight Source : Standing scale Weight Entry Format : [place] Clinical Dosing Weight : 84.09 kg Weight, Pounds : 185 lb Body Surface Area (BSA) : 1.98 m2 Body Mass Index : 28.2 kg/m2 (HI) [place] Body Weight : 63 kg Maryan Slater [...] RN - 02/01/2019 11:09 EDT Spiritual/Cultural Needs Church Preference : Christianity Maryan Slater RN - 02/01/2019 11:09 EDT [...] #2 Relationship : . Primary Language : Comoran Communication Barrier : None Maryan Slater RN [...]
--- OUTSIDE RECORDS SUMMARY | 2025-07-10 12:59 | XMS_ITS | Encounter Summary ---
Author Organization [employer] ([place], [place], [place], [place]) Address [address] [place] [address] Care Team Providers Care System Controller Name Role Phone Unavailable Primary Care Provider Unavailabl e Encounter Details Date Type Department Care Team (Late st Contact Info) Description 03/01/2019 Transcribed Document [facility] Radiology 1 [place] [address] Provider, Cristian Ashraf MD Social [...] [facility] P[facility]ale ProviderMD - 03/01/2019 5:34 PM EDT [place] [address] [place] [address] AUBREY JUAN :1955 Visit Time:03/01/2019 [...] for swelling and pain. Prescriptions given for [place] 7.5/325 one tab by mouth every 4-6 hours as needed for pain. Discharge Follow Up Instructions: See discharge pre-printed BGO sheet. Prescriptions attached. Follow-Up Appointments Follow Up with LETICIA MART MD-ORT When 03/11/2019 11:00 AM EDT Where: [address] [facility] [address] [place] [address]- Medications What How Much When Instructions Next [...] activities are safe for you. ??? Take zzzl-adv-pneedqc and prescription medicines only as told by [...] 02/08/2002 Document Revised: 04/06/2017 Document Reviewed: 10/16/2016 [employer] Interactive Patient Education ?? 2017 [employer] Knee Arthroscopy, Care After Refer to [...] activities are safe for you. ??? Perform bzubg-xo-qqseub exercises only as directed by your health [...] 10/29/2015 Elsevier Interactive Patient Education ?? 2017 [employer]. acetaminophen and hydrocodone (a SEET a MIN oh fen and kashif droe KOE done) Hycet, Lorcet, [place], Verdrocet, Vicodin, Xodol, Zamicet What is the [...] may report side effects to FDA at 9-090-UJJ-6163. What other drugs will affect acetaminophen and [...] affect acetaminophen and hydrocodone, including prescription and cnnr-okx-aoqnnjl medicines, vitamins, and herbal products. Not all [...] to ensure that the information provided by [employer]') is accurate, up-to-date, and complete, but no guarantee is made to that effect. Drug information contained herein may be time sensitive. [employer] information has been compiled for use by healthcare practitioners and consumers in the [place] and therefore [employer] does not warrant that uses outside of the [place] are appropriate, unless specifically indicated otherwise. [employer] drug information does not endorse drugs, diagnose patients or recommend therapy. [employer] drug information is an informational resource designed [...] effective or appropriate for any given patient. [facility] does not assume any responsibility for any aspect of healthcare administered with the aid of information [facility] provides. The information contained herein is not intended to cover all possible uses, directions, precautions, warnings, drug interactions, allergic reactions, or adverse effects. If you have questions about the drugs you are taking, check with your doctor, nurse or pharmacist. Copyright 0676-4120 [facility] Simplified911 View. Version: 15.02. Revision Date: 09/20/2018. Emergency Awareness [...] Assistance with quitting is available by contacting 1-724-MFEQ-NOW. This is a free resource providing counseling, [...] computer, smartphone, or tablet. Just go to [employer] to get started. Questions? Call . Test [...] range between ( 1.0 and 7.0 ) [place] #: 0.68 K/uL -- Normal range between ( 0.24 and 0.82 ) [place] #: 0.06 K/uL -- Normal range between ( 0.04 and 0.54 ) [place] %: 7.0 % -- Normal range between [...] ) Urine Bilirubin Dipstick: Negative Urine Specific [place]: 1.019 -- Normal range between ( 1.005 and 1.030 ) Urine Type.: U [employer] General Chemistry 02/01/19 11:01:00 Hgb A1C: 5.70 [...] was given the opportunity to ask questions. Patient/Prefabricated Houses Trimmer Name: Patient/Prefabricated Houses Trimmer Signature: Relationship to Patient: Clinician/Hospital Prefabricated Houses Trimmer Signature: Date: documented in this encounter Plan of Treatment Not on file documented as of this encounter Visit Diagnoses Not on filedocumented in this encounter
--- OUTSIDE RECORDS SUMMARY | 2025-07-10 12:59 | XMS_ITS | Encounter Summary ---
Author Organization [employer] ([place], [place], [place], [place]) Address [address] [place] [address] Care Team Providers Care Modeling And Simulation Analyst Name Role Phone Unavailable Primary Care Provider Unavailabl e Encounter Details Date Type Department Care Team (Late st Contact Info) Description 03/01/2019 Transcribed Document [facility] Radiology 1 [place] [address] Provider, Cristian Ashraf MD Social [...] Miscellaneous Notes * Cerner Conversion Note - [facility] Pascale ProviderMD - 03/01/2019 5:56 PM EDT [...]
--- OUTSIDE RECORDS SUMMARY | 2025-07-10 12:59 | XMS_ITS | Encounter Summary ---
Author Organization [employer] ([place], [place], [place], [place]) Address [address] [place] [address] Care Team Providers Care Driftman Name Role Phone Unavailable Primary Care Provider Unavailabl e Encounter Details Date Type Department Care Team (Late st Contact Info) Description 03/01/2019 Transcribed Document [facility] Radiology 1 [place] [address] Provider, Cristian Ashraf MD Social [...] JUAN /Sex: 1955 Female Med Rec #: [id number] Physician: LETICIA MART MD-ORT Financial #: [id number] Pt. Type: O Room/Bed: [facility]/6 Admit/Disch: 03/01/19 04:54:00 - Institution: [facility] PreOp Case Times Entry 1 In Preop 03/01/19 11:05:00 Ready for Holding n/a Room Patient Ready for 03/01/19 11:45:00 Surgery Patient Out of Preop 03/01/19 14:33:00 Patient Out of n/a Holding Room Last Modified By: NICOLE HEADLEY 03/01/19 15:14:12 [facility] PreOp Case Times Audit 03/01/19 15:14:12 It Business Analyst: [id number] Modifier: [email or web address] <+> 1 Patient Out of Preop Finalized By: NICOLE HEADLEY Document Signatures Signed By: NICOLE HEADLEY 03/01/19 15:14 Electronically signed by Ev [facility] Conversion Broadcasting Equipment Mechanic Cerner at 04/08/2023 8:03 PM CDT documented in this encounter Plan of Treatment Not on file documented as of this encounter Visit Diagnoses Not on filedocumented in this encounter
--- OUTSIDE RECORDS SUMMARY | 2025-07-10 12:59 | XMS_ITS | Encounter Summary ---
Author Organization [employer] ([place], [place], [place], [place]) Address [address] [place] [address] Care Team Providers Care Security Field Supervisor Name Role Phone Unavailable Primary Care Provider Unavailabl e Encounter Details Date Type Department Care Team (Late st Contact Info) Description 03/01/2019 Transcribed Document [facility] Radiology 1 [place] [address] Provider, Cristian Ashraf MD Social [...] what activities are safe for you. EPerform hmhwf-fd-xxnmde exercises only as directed by your health [...] 05/22/2006 Document Revised: 04/03/2017 Document Reviewed: 10/29/2015 [employer] Interactive Patient Education ? 2017 [employer]. Pharmacology General Anesthesia, Adult, Care After These [...] what activities are safe for you. ETake nrdg-bud-ylganrw and prescription medicines only as told by [...] 10/16/2016 Elsevier Interactive Patient Education ? 2017 [employer] documented in this encounter Plan of Treatment Not on file documented as of this encounter Visit Diagnoses Not on filedocumented in this encounter
--- OUTSIDE RECORDS SUMMARY | 2025-07-10 12:59 | XMS_ITS | Encounter Summary ---
Author Organization [employer] ([place], [place], [place], [place]) Address [address] [place] [address] Care Team Providers Care Construction Equipment Technician Name Role Phone Unavailable Primary Care Provider Unavailabl e Encounter Details Date Type Department Care Team (Late st Contact Info) Description 02/01/2019 Transcribed Document [facility] Radiology 1 [place] [address] Provider, Cristian Ashraf MD [...] 13:21 Calcium Level 9.5 mg/dL 02/01/2019 13:21 Electronically signed by Ev, Cristian Conversion Costumed Character Entertainer Cerner at 04/08/2023 8:03 PM CDT documented in this encounter Plan of Treatment Not on file documented as of this encounter Visit Diagnoses Not on filedocumented in this encounter
--- OUTSIDE RECORDS SUMMARY | 2025-07-10 12:59 | XMS_ITS | Clinical Summary ---
Author Organization [facility] ystem Address [address] [place] [address] Care Team Providers Care Radial Drill Operator For Plastic Name Role Phone Unavailable Primary Care Provider [...] of the left 8:00 retroareolar region. COMPARISON: [facility] mammograms dated 06/03/2001, 08/16/2002, 01/07/2011, and 07/02/2011. [...] Radiologist- NICOLAS MENDEZ Released Date Time- 03/27/15 1916 Seasoner- LizzieEEllen us Benjamin Tinajero MD [facility] MAMMO[facility]APHY ORDERABLES Mia kahlil Result from Last 3 Months or Most Recently Relevant to Health Maintenance
--- NOTE | 2025-07-10 13:00 | CA_ITS ---
APPROVED REPORT EXAM: Comprehensive 2D, Doppler, and color-flow Echocardiogram It Program Auditor: Lauren Mandujano RDCS Ht: 5 ft 8 in Wt: 187lbs BSA: 1.99 BP: 144/91 mmHg Indications: Chest pain 2D Dimensions Left Atrium 2.74 cm F: 2.7 - 3.8 LVOT 2.33 cm (M/F) 1.5-2.5 M-Mode Dimensions RVDd 2.84 cm (0.9-2.6) LVDd 4.28 cm (3.5-5.7) Ao Diam 2.71 cm (2.0-3.7) LVDs 2.95 cm (3.5-5.7) IVSd 0.76 cm (0.6-1.1) PWd 0.87 cm (0.6-1.1) EF (Teich) 59.10% FS 31.10% EDV (Teich) 82.20 mL ESV (Teich) 33.60 mL Tricuspid Valve TR P. Velocity 191.00 cm/s RAP Estimate 10.00 mmHg RVSP 24.60 mmHg Left Ventricle The left ventricle is normal size. Left ventricular systolic function is normal. The left ventricular ejection fraction is within the normal range. There is increased left ventricular wall thickness. There is normal LV segmental wall motion. The left ventricular diastolic function is indeterminate. LVEF is 55% Right Ventricle The right ventricle is mildly dilated. The right ventricular systolic function is normal. Atria The left atrium size is normal. The right atrium size is normal. The interatrial septum is not well-visualized on the study. Aortic Valve The aortic valve is mildly thickened. There is no hemodynamically significant aortic valvular stenosis. No aortic regurgitation is present. Mitral Valve The mitral valve is normal in structure. No evidence of mitral valve stenosis. Trace mitral regurgitation is present. Tricuspid Valve The tricuspid valve leaflets are thin and pliable. Mild tricuspid regurgitation. RVSP is 20-25 mmHg. Pulmonic Valve The pulmonary valve is normal in structure. Trace pulmonic valvular regurgitation. Great Vessels The aortic root is normal in size. IVC is normal in size and collapses >50% with inspiration. Pericardium There is no pericardial effusion. Other Information Study Quality: Technically Difficult Conclusion Technically difficult study. Normal biventricular systolic function. Mild RV dilation. No significant valvular stenosis or regurgitation. Electronically signed by : Ade Davila MD 07/11/2025 00:35:39
--- OUTSIDE RECORDS SUMMARY | 2025-07-10 13:00 | XMS_ITS | Encounter Summary ---
Author Organization [employer] ([place], [place], [place], [place]) Address [address] [place] [address] Care Team Providers Care Damaged Freight Inspector Name Role Phone Unavailable Primary Care Provider Unavailabl e Encounter Details Date Type Department Care Team (Late st Contact Info) Description 02/01/2019 Transcribed Document [facility] Radiology 1 [place] [address] Provider, Cristian Ashraf MD Social [...] Miscellaneous Notes * Cerner Conversion Note - [facility] Pascale ProviderMD - 02/01/2019 12:47 [...]
--- OUTSIDE RECORDS SUMMARY | 2025-07-10 13:00 | XMS_ITS | Clinical Summary ---
Author Organization [employer] ([place], [place], [place], [place]) Address [address] [place] [address] Care Team Providers Care Hardness Tester Name Role Phone Unavailable Primary Care [...]
== END 2025-07-10 23:59 | disposition home or self-care (01) ==
LOC: RT 12:55
PROVIDERS: PCP Nurse Practitioner Family; Visit Provider Nurse Practitioner
DX: Z01.810 Encounter for preprocedural cardiovascular examination (principal); I51.7 Cardiomegaly; I25.10 Atherosclerotic heart disease of native coronary artery without angina pectoris; I25.2 Old myocardial infarction; I49.1 Atrial premature depolarization; E78.5 Hyperlipidemia, unspecified
CPT/HCPCS: 93306

== ENCOUNTER 2025-07-13 12:14 | Outpatient (CLI) | payer MEDICARE, BC, SELFPAY ==
--- OUTSIDE RECORDS SUMMARY | 2025-07-13 12:20 | XMS_ITS | Encounter Summary ---
Author Organization [facility] ([place], [place], [place], [place]) Address [address] [place] [address] Care Team Providers Care E Tailer Name Role Phone Unavailable Primary Care Provider Unavailabl e Encounter Details Date Type Department Care Team (Late st Contact Info) Description 02/01/2019 Transcribed Document [facility] Radiology 1 [place] [address] Provider, Cristian Ashraf MD Social [...]
--- OUTSIDE RECORDS SUMMARY | 2025-07-13 12:20 | XMS_ITS | Encounter Summary ---
Author Organization [employer] ([place], [place], [place], [place]) Address [address] [place] [address] Care Team Providers Care Production Operator Name Role Phone Unavailable Primary Care Provider Unavailabl e Encounter Details Date Type Department Care Team (Late st Contact Info) Description 03/01/2019 Transcribed Document [facility] Radiology 1 [place] [address] Provider, Cristian Ashraf MD Social [...] JUAN /Sex: 1955 Female Med Rec #: [id number] Physician: LETICIA MART MD-ORT Financial #: [id number] Pt. Type: O Room/Bed: [facility]/6 Admit/Disch: 03/01/19 04:54:00 - Institution: [facility] PreOp Case Times Entry 1 In Preop 03/01/19 11:05:00 Ready for Holding n/a Room Patient Ready for 03/01/19 11:45:00 Surgery Patient Out of Preop 03/01/19 14:33:00 Patient Out of n/a Holding Room Last Modified By: NICOLE HEADLEY 03/01/19 15:14:12 [facility] PreOp Case Times Audit 03/01/19 15:14:12 Candle Wrapping Machine Operator: [id number] Modifier: [email or web address] <+> 1 Patient Out of Preop Finalized By: NICOLE HEADLEY Document Signatures Signed By: NICOLE HEADLEY 03/01/19 15:14 documented in this encounter Plan of Treatment Not on file documented as of this encounter Visit Diagnoses Not on filedocumented in this encounter
--- OUTSIDE RECORDS SUMMARY | 2025-07-13 12:20 | XMS_ITS | Encounter Summary ---
Author Organization [employer] ([place], [place], [place], [place]) Address [address] [place] [address] Care Team Providers Care Data Transcriber Name Role Phone Unavailable Primary Care Provider Unavailabl e Encounter Details Date Type Department Care Team (Late st Contact Info) Description 03/01/2019 Transcribed Document [facility] Radiology 1 [place] [address] Provider, Cristian Ashraf MD Social [...] Miscellaneous Notes * Cerner Conversion Note - [facility] Pascale ProviderMD - 03/01/2019 [...] - 03/01/2019 16:56 EDT Electronically signed by Cristian Carreno Conversion Aging Department Supervisor Cerner at 04/08/2023 8:02 PM CDT documented in this encounter Plan of Treatment Not on file documented as of this encounter Visit Diagnoses Not on filedocumented in this encounter
--- OUTSIDE RECORDS SUMMARY | 2025-07-13 12:20 | XMS_ITS | Encounter Summary ---
Author Organization [email or web address] ([place], [place], [place], [place]) Address [address] [place] [address] Care Team Providers Care Housekeeping Director Name Role Phone Unavailable Primary Care Provider Unavailabl e Encounter Details Date Type Department Care Team (Late st Contact Info) Description 03/01/2019 Transcribed Document [facility] Radiology 1 [place] [address] Provider, Cristian Ashraf MD Social [...] what activities are safe for you. EPerform yxdvb-wv-btrynu exercises only as directed by your health [...] 05/22/2006 Document Revised: 04/03/2017 Document Reviewed: 10/29/2015 [employer] Interactive Patient Education ? 2017 [employer]. Pharmacology General Anesthesia, Adult, Care After These [...] what activities are safe for you. ETake pvxl-sqy-hfpuwyv and prescription medicines only as told by [...] 10/16/2016 Elsevier Interactive Patient Education ? 2017 [employer] documented in this encounter Plan of Treatment Not on file documented as of this encounter Visit Diagnoses Not on filedocumented in this encounter
--- OUTSIDE RECORDS SUMMARY | 2025-07-13 12:20 | XMS_ITS | Clinical Summary ---
Author Organization [facility] ystem Address [address] [place] [address] Care Team Providers Care School Lunch Monitor Name Role Phone Unavailable Primary Care Provider [...] of the left 8:00 retroareolar region. COMPARISON: [facility] mammograms dated 06/03/2001, 08/16/2002, 01/07/2011, and 07/02/2011. [...] Radiologist- NICOLAS MENDEZ Released Date Time- 03/27/15 6976 Investigation Division Sergeant- LizzieEEllen us Benjamin Tinajero MD [facility] MAMMOGRAPHY ORDERABLES Mia kahlil Result from Last 3 Months or Most Recently Relevant to Health Maintenance
--- OUTSIDE RECORDS SUMMARY | 2025-07-13 12:20 | XMS_ITS | Referral Summary ---
Author Organization [facility] ([place], [place], [place], [place]) Address [address] [place] [address] Care Team Providers Care Lobby Concierge Name Role Phone Unavailable Primary Care Provider [...]
--- OUTSIDE RECORDS SUMMARY | 2025-07-13 12:20 | XMS_ITS | Clinical Summary ---
Author Organization [employer] ([place], [place], [place], [place]) Address [address] [place] [address] Care Team Providers Care Renal Case Manager Name Role Phone Unavailable Primary Care [...]
--- OUTSIDE RECORDS SUMMARY | 2025-07-13 12:20 | XMS_ITS | Encounter Summary ---
Author Organization [employer] ([place], [place], [place], [place]) Address [address] [place] [address] Care Team Providers Care Tierce Filler Name Role Phone Unavailable Primary Care Provider Unavailabl e Encounter Details Date Type Department Care Team (Late st Contact Info) Description 03/01/2019 Transcribed Document [facility] Radiology [address] [place] [address] Provider, Cristian Ashraf MD Social [...] Miscellaneous Notes * Cerner Conversion Note - [facility] Pascale ProviderMD - 03/01/2019 5:34 PM EDT [place] [address] [place] [address] AUBREY JUAN :1955 Visit Time:03/01/2019 [...] for swelling and pain. Prescriptions given for [place] 7.5/325 one tab by mouth every 4-6 hours as needed for pain. Discharge Follow Up Instructions: See discharge pre-printed BGO sheet. Prescriptions attached. Follow-Up Appointments Follow Up with LETICIA MART MD-ORT When 03/11/2019 11:00 AM EDT Where: [address] [facility] [address] [place] [address]- Medications What How Much When Instructions Next [...] activities are safe for you. ??? Take jyel-akv-oactttu and prescription medicines only as told by [...] 02/08/2002 Document Revised: 04/06/2017 Document Reviewed: 10/16/2016 [employer] Interactive Patient Education ?? 2017 [employer] Knee Arthroscopy, Care After Refer to [...] activities are safe for you. ??? Perform bffsw-hq-xfkpbs exercises only as directed by your health [...] 10/29/2015 Elsevier Interactive Patient Education ?? 2017 [employer]. acetaminophen and hydrocodone (a SEET a MIN oh fen and kashif droe KOE done) Hycet, Lorcet, [place], Verdrocet, Vicodin, Xodol, Zamicet What is the [...] may report side effects to FDA at 3-484-QRQ-8815. What other drugs will affect acetaminophen and [...] affect acetaminophen and hydrocodone, including prescription and rlox-wfg-slstbvv medicines, vitamins, and herbal products. Not all [...] to ensure that the information provided by [employer]. ('[employer]') is accurate, up-to-date, and complete, but no guarantee is made to that effect. Drug information contained herein may be time sensitive. [employer] information has been compiled for use by healthcare practitioners and consumers in the [place] and therefore [employer] does not warrant that uses outside of the [place] are appropriate, unless specifically indicated otherwise. [employer] drug information does not endorse drugs, diagnose patients or recommend therapy. [employer]abss drug information is an informational resource designed [...] effective or appropriate for any given patient. [facility] does not assume any responsibility for any aspect of healthcare administered with the aid of information [facility] provides. The information contained herein is not intended to cover all possible uses, directions, precautions, warnings, drug interactions, allergic reactions, or adverse effects. If you have questions about the drugs you are taking, check with your doctor, nurse or pharmacist. Copyright 1048-6559 [employer]. Version: 15.02. Revision Date: 09/20/2018. Emergency Awareness [...] Assistance with quitting is available by contacting 7-585-UCSD-NOW. This is a free resource providing counseling, [...] computer, smartphone, or tablet. Just go to [employer] / [employer] to get started. Questions? Call . Test [...] range between ( 1.0 and 7.0 ) [place] #: 0.68 K/uL -- Normal range between ( 0.24 and 0.82 ) [place]os #: 0.06 K/uL -- Normal range between ( 0.04 and 0.54 ) [place] %: 7.0 % -- Normal range between [...] ) Urine Bilirubin Dipstick: Negative Urine Specific Dexter: 1.019 -- Normal range between ( 1.005 and 1.030 ) Urine Type.: U [employer] General Chemistry 02/01/19 11:01:00 Hgb A1C: [...] was given the opportunity to ask questions. Patient/Vp Digital Marketing Name: Patient/Vp Digital Marketing Signature: Relationship to Patient: Clinician/Hospital Vp Digital Marketing Signature: Date: documented in this encounter Plan of Treatment Not on file documented as of this encounter Visit Diagnoses Not on filedocumented in this encounter
--- OUTSIDE RECORDS SUMMARY | 2025-07-13 12:20 | XMS_ITS | Encounter Summary ---
Author Organization [employer] ([place], [place], [place], [place]) Address [address] [place] [address] Care Team Providers Care Buttermaker Helper Name Role Phone Unavailable Primary Care Provider Unavailabl e Encounter Details Date Type Department Care Team (Late st Contact Info) Description 03/01/2019 Transcribed Document [facility] Radiology 1 [place] [address] Provider, Cristian Ashraf MD [...] Miscellaneous Notes * Cerner Conversion Note - [facility] Pascale ProviderMD - 03/01/2019 4:37 PM EDT [...] M.D. Electronically signed by Cristian Carreno Conversion Computer Technical Specialist Cerner at 04/08/2023 8:03 PM CDT documented in this encounter Plan of Treatment Not on file documented as of this encounter Visit Diagnoses Not on filedocumented in this encounter
--- OUTSIDE RECORDS SUMMARY | 2025-07-13 12:20 | XMS_ITS | Encounter Summary ---
Author Organization [employer] ([place], [place], [place], [place]) Address [address] [place] [address] Care Team Providers Care Transportation Escort Name Role Phone Unavailable Primary Care Provider Unavailabl e Encounter Details Date Type Department Care Team (Late st Contact Info) Description 03/01/2019 Transcribed Document [facility] Radiology 1 [place] [address] Provider, Cristian Ashraf MD Social [...] JUAN /Sex: 1955 Female Med Rec #: [id number] Physician: LETICIA MART MD-ORT Financial #: [id number] Pt. Type: O Room/Bed: [facility]/ Admit/Disch: 03/01/19 04:54:00 - Institution: [facility] PostOp Case Times Entry 1 In PACU II 03/01/19 15:57:00 Ready for PACU II 03/01/19 17:00:00 Discharge Discharge from PACU 03/01/19 17:00:00 II Last Modified By: Ирина Cohen Rn 03/01/19 17:00:07 Finalized By: Ирина Cohen Rn Document Signatures Signed By: Ирина Cohen Rn 03/01/19 17:00 Electronically signed by Ev [facility] Conversion Pattern Repair Person Cerner at 04/08/2023 8:03 PM CDT documented in this encounter Plan of Treatment Not on file documented as of this encounter Visit Diagnoses Not on filedocumented in this encounter
--- OUTSIDE RECORDS SUMMARY | 2025-07-13 12:20 | XMS_ITS | Encounter Summary ---
Author Organization [employer] ([place], [place], [place], [place]) Address [address] [place] [address] Care Team Providers Care Matte Cutter Name Role Phone Unavailable Primary Care Provider Unavailabl e Encounter Details Date Type Department Care Team (Late st Contact Info) Description 03/01/2019 Transcribed Document [facility] Radiology [address] [place] [address] Provider, Cristian Ashraf MD Social [...] JUAN /Sex: 1955 Female Med Rec #: [id number] Physician: LETICIA MART MD-ORT Financial #: [id number] Pt. Type: O Room/Bed: [facility]/ Admit/Disch: 03/01/19 04:54:00 - [place] [facility] [place]Op Case Attendance Entry 1 Entry 2 Entry 3 Case Attendee LETICIA MART [place], Cheryl B, PANCHO SHAW, RN MD-ORT RN Role Performed Surgeon/Proceduralist, Manager Technical Training, First Manager Technical Training, Second First Time In 03/01/19 14:27:00 03/01/19 14:27:00 03/01/19 14:45:00 Time Out 03/01/19 15:47:00 03/01/19 14:49:00 03/01/19 15:47:00 Procedure Knee Arthroscopy Knee Arthroscopy Knee Arthroscopy Other Attendee Superficial Wound Closed By: Last Modified By: PANCHO SHAW, PANCHO RANDOLPH, PANCHO RANDOLPH, PRECIOUS 03/01/19 15:47:41 03/01/19 15:47:41 03/01/19 15:47:41 Entry 4 Entry 5 Case Attendee ALICIA HARDY ST WHITAKER, CARLY, DIE FORGER Role Performed Scrub, First DIE FORGER/Nurse Log Hooker Time In 03/01/19 14:27:00 03/01/19 14:27:00 Time Out 03/01/19 15:47:00 03/01/19 15:47:00 Procedure Knee Arthroscopy Knee Arthroscopy Other Attendee Superficial Wound Closed By: Last Modified By: PANCHO SHAW, PANCHO RANDOLPH, PRECIOUS 03/01/19 15:47:41 03/01/19 15:47:41 [facility] IntraOp Case Attendance Audit 03/01/19 15:47:41 Telecom Billing Analyst: LONGGA Modifier: LONGGA 1 <+> Time Out 1 <*> Procedure Knee Arthroscopy 2 <*> Procedure Knee Arthroscopy 3 <+> Time Out 3 <*> Procedure Knee Arthroscopy 4 <+> Time Out 4 <*> Procedure Knee Arthroscopy 5 <+> Time Out 5 <*> Procedure Knee Arthroscopy 03/01/19 15:07:05 Telecom Billing Analyst: LONGGA Modifier: LONGGA <+> 1 Procedure 2 <*> Procedure Knee Arthroscopy 3 <*> Procedure Knee Arthroscopy 4 <*> Procedure Knee Arthroscopy 5 <*> Procedure Knee Arthroscopy 03/01/19 15:05:50 Telecom Billing Analyst: LONGGA Modifier: LONGGA <+> 3 Case [...] [facility] IntraOp Case Times Audit 03/01/19 15:47:38 Telecom Billing Analyst: LONGGA Modifier: LONGGA <+> 1 Out Room Time <+> 1 Stop Time 03/01/19 15:37:20 Telecom Billing Analyst: LONGGA Modifier: LONGGA <+> 1 Stop Time 03/01/19 15:07:10 Telecom Billing Analyst: LONGGA Modifier: LONGGA 1 <*> Start Time 03/01/19 15:03:00 03/01/19 15:06:48 Telecom Billing Analyst: LONGGA Modifier: LONGGA <+> 1 Start [...] [facility] IntraOp Counts Final Audit 03/01/19 15:37:45 Telecom Billing Analyst: FARHAD Modifier: FARHAD 1 <*> Procedure [...] IntraOp Fire Risk Assessment Audit 03/01/19 15:14:10 Telecom Billing Analyst: FARHAD Modifier: LONGGA 1 <+> Fire Risk Assessment Complete 1 <*> Fire Risk Assessment Verified By Odette Lott RN 1 <+> Fire Risk Assessment Verified Date/Time 1 <+> High Risk Protocol Implemented [facility] IntraOp General Case Histology Technologist 1 Case Information OR OR 02 SJE [...] Other Implant NDL FAST FIX SYSTEM Identification [facility] [id number] Description Implant Quantity 2 Implant Site LEFT KNEE Implant [id number] Identification Lot Number Implant Valdez [employer] Nephew:Endo Identification Yard Hand Name: Implant [id number] Identification Catalog Number Implant Has an Yes [...] [facility] IntraOp Intraoperative Assessment Audit 03/01/19 15:12:37 Telecom Billing Analyst: LONGGA Modifier: LONGGA <+> 1 Patient [...] - Naropin 0.5% 30ml vial vial - [id number] - [id number] Combo Med List Time Administered Route of [...] [facility] IntraOp Surgical Procedures Audit 03/01/19 15:37:21 Telecom Billing Analyst: LONGGA Modifier: LONGGA <+> 1 Stop 03/01/19 15:19:49 Telecom Billing Analyst: LONGGA Modifier: LONGGA 1 <*> Procedure Knee Arthroscopy 1 <*> Additional Procedure Description LEFT KNEE ARTHROSCOPY WITH MEDIAL MENISECTOMY 03/01/19 15:07:32 Telecom Billing Analyst: LONGGA Modifier: LONGGA 1 <*> Procedure [...] 15:56:44 [facility] IntraOp Tourniquet Audit 03/01/19 15:56:44 Telecom Billing Analyst: FARHAD Modifier: LONGGA <+> 1 Stop Time Case Comments <None> Finalized By: PANCHO SHAW, RN Document Signatures Signed By: APNCHO SHAW RN 03/01/19 15:56 documented in this encounter Plan of Treatment Not on file documented as of this encounter Visit Diagnoses Not on filedocumented in this encounter
--- OUTSIDE RECORDS SUMMARY | 2025-07-13 12:20 | XMS_ITS | Encounter Summary ---
Author Organization [employer] ([place], [place], [place], [place]) Address [address] [place] [address] Care Team Providers Care Asset Availability Leader Name Role Phone Unavailable Primary Care Provider Unavailabl e Encounter Details Date Type Department Care Team (Late st Contact Info) Description 02/01/2019 Transcribed Document [facility] Radiology [address] [place] [address] Provider, Cristian Ashraf MD Social [...] Notes * Cerner Conversion Note - [facility] Pascale ProviderMD - 02/01/2019 12:47 PM [...]
--- OUTSIDE RECORDS SUMMARY | 2025-07-13 12:20 | XMS_ITS | Encounter Summary ---
Author Organization [employer] ([place], [place], [place], [place]) Address [address] [place] [address] Care Team Providers Care Grey Goods Marker Name Role Phone Unavailable Primary Care Provider Unavailabl e Encounter Details Date Type Department Care Team (Late st Contact Info) Description 03/01/2019 Transcribed Document [facility] Radiology 1 [place] [address] Provider, Cristian Ashraf MD Social [...] : Stated Height Entry Format : [place] Height, Feet : 5 ft(Converted to: 152 cm, 60 Inch) Height, Inches : 8 Inch(Converted to: 0 ft 8 Inch, 20.32 cm) Clinical Height : 172.72 cm Weight Source : Standing scale Weight Entry Format : [place] Clinical Dosing Weight : 81.36 kg Weight, Pounds : 179 lb Body Surface Area (BSA) : 1.95 m2 Body Mass Index : 27.3 kg/m2 (HI) [place] Body Weight : 63 kg Teressa Mejia Rn - 03/01/2019 11:29 EDT Health Histories Smoking Status : 5-9 cigarettes (between 1/4 to 1/2 pack)/day in last 30 days Smokeless Tobacco Status : Never Desires Tobacco Cessation Medication : No Reason for No Tobacco Cessation Medication : Refuses FDA approved medications Implant/Device Type, Route Sales Trainee and Model : none Teressa Mejia Rn [...] Any Spiritual/Cultural Needs or Requests : No Yazidi Preference : Hoahaoism Teressa Mejia Rn - 03/01/2019 11:29 EDT [...] Obtained From : Patient Primary Language : Malaysian Preferred Communication Mode : Verbal Communication Barrier [...] Sleep Apnea Risk Level Score : 2 Tersesa Mejia Rn - 03/01/2019 11:29 EDT Avery [...] Scale Risk Level : 0-24 Low Risk [place] Fall Interventions : Adequate lighting, Non-slip footwear, [...] the text rendition version of the form. [place] Coma January Best Motor Response : Obey commands [place] Best Verbal Response : Oriented [place] Eye Opening Response : Spontaneous January Coma Score : 15 Teressa Mejia Rn - 03/01/2019 11:29 EDT documented in this encounter Plan of Treatment Not on file documented as of this encounter Visit Diagnoses Not on filedocumented in this encounter
--- OUTSIDE RECORDS SUMMARY | 2025-07-13 12:20 | XMS_ITS | Encounter Summary ---
Author Organization [employer] ([place], [place], [place], [place]) Address [address] [place] [address] Care Team Providers Care Commercial Green Building Architect Name Role Phone Unavailable Primary Care Provider Unavailabl e Encounter Details Date Type Department Care Team (Late st Contact Info) Description 02/01/2019 Transcribed Document [facility] Radiology [address] [place] [address] Provider, Cristian Ashraf MD Social [...] Source : Stated Height Entry Format : [place] Height, Feet : 5 ft(Converted to: 152 cm, 60 Inch) Height, Inches : 8 Inch(Converted to: 0 ft 8 Inch, 20.32 cm) Clinical Height : 172.72 cm Weight Source : Standing scale Weight Entry Format : [place] Clinical Dosing Weight : 84.09 kg Weight, Pounds : 185 lb Body Surface Area (BSA) : 1.98 m2 Body Mass Index : 28.2 kg/m2 (HI) [place] Body Weight : 63 kg Maryan Slater [...] RN - 02/01/2019 11:09 EDT Spiritual/Cultural Needs Sabianist Preference : Anglican Maryan Slater RN - 02/01/2019 11:09 EDT [...] #2 Relationship : . Primary Language : Montserratian Communication Barrier : None Maryan Slater RN [...]
[2025-07-13 13:01] LABS: Hematocrit 47.2 % (37.0-47.0); Hemoglobin 15.1 g/dL (12.2-16.2); Immature Granulocytes % 0.2 %; Mean Corpuscular HGB Conc 32.0 g/dL (31.8-35.4); Mean Corpuscular Hemoglobin 30.8 pg (27.0-31.2); Mean Corpuscular Volume 96.3 fl (81-99); Nucleated Red Blood Cells % 0 %; Platelet Count 269 K/mm3 (142-424); Red Blood Count 4.90 M/mm3 (4.20-5.40); Red Cell Distribution Width-SD 46.6 fL; White Blood Count 10.0 K/mm3 (4.8-10.8)
[2025-07-13 13:51] LABS: Albumin Level 4.6 g/dl (3.5-5.0); Chloride 108 mmol/L (98-107); Potassium 4.2 mmoL/L (3.5-5.1); Sodium 142 mmol/L (136-145)
[2025-07-13 13:54] LABS: Alanine Aminotransferase 35 U/L (12-78); Albumin/Globulin Ratio 1.6 (1.1-1.8); Alkaline Phosphatase 97 U/L (38-126); Anion Gap 12.2 mEq/L (5-15); Aspartate Amino Transferase 46 U/L (14-36); Bilirubin,Total 0.5 mg/dl (0.2-1.3); Blood Urea Nitrogen 10 mg/dl (7-17); Calcium 9.6 mg/dl (8.4-10.2); Carbon Dioxide 26 mmol/L (22.0-30.0); Creatinine,Serum 0.60 mg/dl (0.52-1.04); Estimated Glomerular Filt Rate 99 ml/min (>60); GFR (African American) 120 ML/MIN (>60); Globulin 2.9 g/dL (1.3-3.2); Glucose 86 mg/dl (74-100); Total Protein,Serum 7.5 g/dl (6.3-8.2); Uric Acid 5.1 mg/dl (2.5-6.2)
[2025-07-13 13:59] LABS: C-Reactive Protein 15.0 mg/L (0-4)
== END 2025-07-13 23:59 | disposition home or self-care (01) ==
PROVIDERS: PCP Nurse Practitioner Family; Visit Provider Nurse Practitioner Family
DX: M25.472 Effusion, left ankle (principal); M25.572 Pain in left ankle and joints of left foot
CPT/HCPCS: 36415; 80053; 84550; 85025; 85651; 86140

== ENCOUNTER 2025-10-02 09:08 | Outpatient (CLI) | payer MEDICARE, BC, SELFPAY ==
[2025-10-02 09:53] LABS: Hematocrit 50.7 % (37.0-47.0); Hemoglobin 16.5 g/dL (12.2-16.2); Immature Granulocytes % 0.3 %; Mean Corpuscular HGB Conc 32.5 g/dL (31.8-35.4); Mean Corpuscular Hemoglobin 31.9 pg (27.0-31.2); Mean Corpuscular Volume 97.9 fl (81-99); Nucleated Red Blood Cells % 0 %; Platelet Count 111 K/mm3 (142-424); Red Blood Count 5.18 M/mm3 (4.20-5.40); Red Cell Distribution Width-SD 48.6 fL; White Blood Count 7.7 K/mm3 (4.8-10.8)
[2025-10-02 11:02] LABS: Alanine Aminotransferase 57 U/L (12-78); Albumin Level 4.8 g/dl (3.5-5.0); Albumin/Globulin Ratio 1.5 (1.1-1.8); Alkaline Phosphatase 109 U/L (38-126); Anion Gap 13.8 mEq/L (5-15); Aspartate Amino Transferase 65 U/L (14-36); Bilirubin,Total 1.0 mg/dl (0.2-1.3); Blood Urea Nitrogen 11 mg/dl (7-17); Calcium 10.5 mg/dl (8.4-10.2); Carbon Dioxide 20 mmol/L (22.0-30.0); Chloride 109 mmol/L (98-107); Cholesterol 143 mg/dl (140-200); Creatinine,Serum 0.60 mg/dl (0.52-1.04); Estimated Glomerular Filt Rate 99 ml/min (>60); GFR (African American) 120 ML/MIN (>60); Globulin 3.3 g/dL (1.3-3.2); Glucose 85 mg/dl (74-100); HDL Cholesterol 47 mg/dl (40-60); Potassium 4.8 mmoL/L (3.5-5.1); Sodium 138 mmol/L (136-145); Total Protein,Serum 8.1 g/dl (6.3-8.2); Triglycerides 163 mg/dl (30-150)
[2025-10-02 11:32] LABS: Thyroid Stimulating Hormone 1.38 uIU/mL (0.465-4.68)
== END 2025-10-02 23:59 | disposition home or self-care (01) ==
LOC: LAB 09:10
PROVIDERS: PCP Nurse Practitioner Family; Visit Provider Nurse Practitioner Family
DX: Z00.00 Encounter for general adult medical examination without abnormal findings (principal); E78.2 Mixed hyperlipidemia; R53.83 Other fatigue
CPT/HCPCS: 36415; 80053; 80061; 84443; 85025

== ENCOUNTER 2025-10-30 10:15 | Outpatient (CLI) | payer MEDICARE, BC, SELFPAY ==
[2025-10-30 10:43] LABS: Hematocrit 48.0 % (37.0-47.0); Hemoglobin 15.7 g/dL (12.2-16.2); Immature Granulocytes % 0.2 %; Mean Corpuscular HGB Conc 32.7 g/dL (31.8-35.4); Mean Corpuscular Hemoglobin 31.5 pg (27.0-31.2); Mean Corpuscular Volume 96.4 fl (81-99); Nucleated Red Blood Cells % 0 %; Platelet Count 237 K/mm3 (142-424); Red Blood Count 4.98 M/mm3 (4.20-5.40); Red Cell Distribution Width-SD 47.0 fL; White Blood Count 8.5 K/mm3 (4.8-10.8)
[2025-10-30 12:29] LABS: Alanine Aminotransferase 44 U/L (12-78); Albumin Level 4.7 g/dl (3.5-5.0); Albumin/Globulin Ratio 1.5 (1.1-1.8); Alkaline Phosphatase 122 U/L (38-126); Anion Gap 16.3 mEq/L (5-15); Aspartate Amino Transferase 45 U/L (14-36); Bilirubin,Total 0.7 mg/dl (0.2-1.3); Blood Urea Nitrogen 12 mg/dl (7-17); Calcium 10.3 mg/dl (8.4-10.2); Carbon Dioxide 25 mmol/L (22.0-30.0); Chloride 104 mmol/L (98-107); Creatinine,Serum 0.80 mg/dl (0.52-1.04); Estimated Glomerular Filt Rate 71 ml/min (>60); GFR (African American) 86 ML/MIN (>60); Globulin 3.1 g/dL (1.3-3.2); Glucose 138 mg/dl (74-100); Potassium 4.3 mmoL/L (3.5-5.1); Sodium 141 mmol/L (136-145); Total Protein,Serum 7.8 g/dl (6.3-8.2); Uric Acid 6.0 mg/dl (2.5-6.2)
[2025-10-30 12:34] LABS: C-Reactive Protein 2.1 mg/L (0-4)
[2025-10-30 13:00] LABS: Thyroid Stimulating Hormone 2.60 uIU/mL (0.465-4.68)
[2025-10-31 08:24] LABS: RA Latex Turbid. <10.0 IU/mL (<14.0)
[2025-10-31 16:12] LABS: Antinuclear Antibodies, IFA Positive (.)
== END 2025-10-30 23:59 | disposition home or self-care (01) ==
LOC: LAB 10:16
PROVIDERS: PCP Nurse Practitioner Family; Visit Provider Nurse Practitioner Family
DX: D69.6 Thrombocytopenia, unspecified (principal); E83.52 Hypercalcemia; M25.50 Pain in unspecified joint
CPT/HCPCS: 80053; 83970; 84443; 84550; 85025; 85651; 86038; 86140; 86200; 86431

== ENCOUNTER 2025-10-31 09:16 | Outpatient (CLI) | payer MEDICARE, BC, SELFPAY ==
--- OUTSIDE RECORDS SUMMARY | 2025-10-31 09:23 | XMS_ITS | Encounter Summary ---
Author Organization [employer] ([place], [place], [place], [place], [place]) Address [address] [place] [address] Care Team Providers Care Line Therapist Name Role Phone Unavailable Primary Care Provider Unavailabl e Encounter Details Date Type Department Care Team (Late st Contact Info) Description 02/01/2019 Transcribed Document [facility] Radiology [address] [place] [address] Provider, Cristian Ashraf MD Social [...]
--- OUTSIDE RECORDS SUMMARY | 2025-10-31 09:23 | XMS_ITS | Encounter Summary ---
Author Organization [employer] ([place], [place], [place], [place], [place]) Address [address] [place] [address] Care Team Providers Care Roving Changer Name Role Phone Unavailable Primary Care Provider Unavailabl e Encounter Details Date Type Department Care Team (Late st Contact Info) Description 03/01/2019 Transcribed Document [facility] Radiology [address] [place] [address] Provider, Cristian Ashraf MD Social [...] Note - Cristian Alvarez MD - 03/01/2019 4:37 PM EDT DATE OF [...]
--- OUTSIDE RECORDS SUMMARY | 2025-10-31 09:23 | XMS_ITS | Encounter Summary ---
Author Organization [id number] ([place], [place], [place], [place], [place]) Address [address] [place] [address] Care Team Providers Care Cyber Security Consultant Name Role Phone Unavailable Primary Care Provider Unavailabl e Encounter Details Date Type Department Care Team (Late st Contact Info) Description 03/01/2019 Transcribed Document [facility] Radiology [address] [place] [address] Provider, Cristian Ashraf MD Social [...] Miscellaneous Notes * Cerner Conversion Note - [facility] Pascale Alvarez MD - 03/01/2019 5:56 PM EDT Event Note Entered On: 03/01/2019 16:57 EDT Performed On: 03/01/2019 16:56 EDT by Ирина Cohen Rn Event Note Event Date/Time : 03/01/2019 16:56 EDT Description of Event : 1656: Pt stated she had crutches at home and states she knows how to ambulate with them. Ирина Cohen Rn - 03/01/2019 16:56 EDT Electronically signed by Cristian Carreno Conversion New Car Get Ready Mechanic Cerner at 04/08/2023 8:02 PM CDT documented in this encounter Plan of Treatment Not on file documented as of this encounter Visit Diagnoses Not on filedocumented in this encounter
--- OUTSIDE RECORDS SUMMARY | 2025-10-31 09:23 | XMS_ITS | Encounter Summary ---
Author Organization [employer] ([place], [place], [place], [place], [place]) Address [address] [place] [address] Care Team Providers Care Package Worker Name Role Phone Unavailable Primary Care Provider Unavailabl e Encounter Details Date Type Department Care Team (Late st Contact Info) Description 03/01/2019 Transcribed Document [facility] Radiology 1 [place] [address] Provider, Cristian Ashraf MD Social [...] what activities are safe for you. EPerform tekvf-py-bgxprf exercises only as directed by your health [...] 05/22/2006 Document Revised: 04/03/2017 Document Reviewed: 10/29/2015 [employer] Interactive Patient Education ? 2017 [employer]. Pharmacology General Anesthesia, Adult, Care After These [...] what activities are safe for you. ETake peyl-ogk-cokggyv and prescription medicines only as told by [...] 10/16/2016 Elsevier Interactive Patient Education ? 2017 [employer] documented in this encounter Plan of Treatment Not on file documented as of this encounter Visit Diagnoses Not on filedocumented in this encounter
--- OUTSIDE RECORDS SUMMARY | 2025-10-31 09:23 | XMS_ITS | Referral Summary ---
Author Organization [employer] ([place], [place], [place], [place], [place]) Address [address] [place] [address] Care Team Providers Care Environmental Solutions Engineer Name Role Phone Unavailable Primary Care [...]
--- OUTSIDE RECORDS SUMMARY | 2025-10-31 09:23 | XMS_ITS | Clinical Summary ---
Author Organization [employer] ([place], [place], [place], [place], [place]) Address [address] [place] [address] Care Team Providers Care Chip Tester Name Role Phone Unavailable Primary Care [...]
--- OUTSIDE RECORDS SUMMARY | 2025-10-31 09:23 | XMS_ITS | Encounter Summary ---
Author Organization [employer] ([place], [place], [place], [place], [place]) Address [address] [place] [address] Care Team Providers Care Shipfitters Supervisor Name Role Phone Unavailable Primary Care Provider Unavailabl e Encounter Details Date Type Department Care Team (Late st Contact Info) Description 03/01/2019 Transcribed Document [facility] Radiology [address] [place] [address] Provider, Cristian Ashraf MD Social [...] JUAN /Sex: 1955 Female Med Rec #: [id number] Physician: LETICIA MART MD-ORT Financial #: [id number] Pt. Type: O Room/Bed: [facility]/6 Admit/Disch: 03/01/19 04:54:00 - Institution: [facility] PreOp Case Times Entry 1 In Preop 03/01/19 11:05:00 Ready for Holding n/a Room Patient Ready for 03/01/19 11:45:00 Surgery Patient Out of Preop 03/01/19 14:33:00 Patient Out of n/a Holding Room Last Modified By: NICOLE HEADLEY 03/01/19 15:14:12 [facility] PreOp Case Times Audit 03/01/19 15:14:12 Washing Machine Assembler: [id number] Modifier: CATLETDD <+> 1 Patient Out of Preop Finalized By: NICOLE HEADLEY Document Signatures Signed By: NICOLE HEADLEY 03/01/19 15:14 Electronically signed by Ev [facility] Conversion Junction Maker Cerner at 04/08/2023 8:03 PM CDT documented in this encounter Plan of Treatment Not on file documented as of this encounter Visit Diagnoses Not on filedocumented in this encounter
--- OUTSIDE RECORDS SUMMARY | 2025-10-31 09:23 | XMS_ITS | Encounter Summary ---
Author Organization [employer] ([place], [place], [place], [place], [place]) Address [address] [place] [address] Care Team Providers Care Hearing Impaired Teacher Name Role Phone Unavailable Primary Care Provider Unavailabl e Encounter Details Date Type Department Care Team (Late st Contact Info) Description 03/01/2019 Transcribed Document [facility] Radiology [address] [place] [address] Provider, Cristian Ashraf MD Social [...] Note - Cristian Alvarez MD - 03/01/2019 12:29 PM EDT Pre Procedure Adult Entered On: 03/01/2019 11:33 EDT Performed On: 03/01/2019 11:29 EDT by Teressa Mejia, Rn Height and Weight, Clinical Dosing Height Source : Stated Height Entry Format : [place] Height, Feet : 5 ft(Converted to: 152 cm, 60 Inch) Height, Inches : 8 Inch(Converted to: 0 ft 8 Inch, 20.32 cm) Clinical Height : 172.72 cm Weight Source : Standing scale Weight Entry Format : [place] Clinical Dosing Weight : 81.36 kg Weight, Pounds : 179 lb Body Surface Area (BSA) : 1.95 m2 Body Mass Index : 27.3 kg/m2 (HI) [place] Body Weight : 63 kg Teressa Mejia Rn - 03/01/2019 11:29 EDT Health Histories Smoking Status : 5-9 cigarettes (between 1/4 to 1/2 pack)/day in last 30 days Smokeless Tobacco Status : Never Desires Tobacco Cessation Medication : No Reason for No Tobacco Cessation Medication : Refuses FDA approved medications Implant/Device Type, Microbiology Analyst and Model : none Teressa Mejia Rn [...] Any Spiritual/Cultural Needs or Requests : No Anabaptism Preference : Catholic Teressa Mejia Rn - 03/01/2019 11:29 EDT [...] Obtained From : Patient Primary Language : Luxembourgish Preferred Communication Mode : Verbal Communication Barrier [...] Scale Risk Level : 0-24 Low Risk [place] Fall Interventions : Adequate lighting, Non-slip footwear, [...] commands January Best Verbal Response : Oriented January Eye Opening Response : Spontaneous January Coma Score : 15 Teressa Mejia Rn - 03/01/2019 11:29 EDT documented in this encounter Plan of Treatment Not on file documented as of this encounter Visit Diagnoses Not on filedocumented in this encounter
--- OUTSIDE RECORDS SUMMARY | 2025-10-31 09:23 | XMS_ITS | Clinical Summary ---
Author Organization [facility] Address [address] [place] [address] Care Team Providers Care Cleaning And Washing Equipment Operator Name Role Phone Unavailable Primary Care [...] (1 of 2) 2005 MAMMOGRAM 03/23/2017 03/23/2015 INFLUENZA VACCINE 06/16/2025 COVID-19 Vaccine ( season) 2025 Procedures Procedure Name Priority Date/Time Associated Diagnosis [...] of the left 8:00 retroareolar region. COMPARISON: [facility] mammograms dated 06/03/2001, 08/16/2002, 01/07/2011, and 07/02/2011. [...] Radiologist- NICOLAS MENDEZ Released Date Time- 03/27/15 4636 Cook Fry- LizzieEEllen us Benjamin Tinajero MD [facility] [place] Mia kahlil Result from Last 3 Months or Most Recently Relevant to Health Maintenance
--- OUTSIDE RECORDS SUMMARY | 2025-10-31 09:23 | XMS_ITS | Encounter Summary ---
Author Organization [employer] ([place], [place], [place], [place], [place]) Address [address] [place] [address] Care Team Providers Care Grocery Clerk Stocking Name Role Phone Unavailable Primary Care Provider Unavailabl e Encounter Details Date Type Department Care Team (Late st Contact Info) Description 03/01/2019 Transcribed Document [facility] Radiology [address] [place] [address] Provider, Cristian Ashraf MD Social [...] Note - Cristian Alvarez MD - 03/01/2019 4:02 PM EDT [facility] Main OR IntraOp Summary Primary Physician: LETICIA MART MD-ORT Finalized Date/Time: 03/01/19 15:56:46 Pt. Name: ALLYSON JUAN /Sex: 1955 Female Med Rec #: [id number] Physician: LETICIA MART MD-ORT Financial #: [id number] Pt. Type: O Room/Bed: [facility]/6 Admit/Disch: 03/01/19 04:54:00 - Institution: [facility] [place] IntraOp Case Attendance Entry 1 Entry 2 Entry 3 Case Attendee LETICIA MART Gillenwater, Cheryl B, PANCHO SHAW, RN -ORT RN Role Performed Surgeon/Proceduralist, Freight Air Brake Fitter, First Freight Air Brake Fitter, Second First Time In 03/01/19 14:27:00 03/01/19 14:27:00 03/01/19 14:45:00 Time Out 03/01/19 15:47:00 03/01/19 14:49:00 03/01/19 15:47:00 Procedure Knee Arthroscopy Knee Arthroscopy Knee Arthroscopy Other Attendee Superficial Wound Closed By: Last Modified By: PANCHO SHAW, PANCHO RANDOLPH, RN PANCHO SHAW, PRECIOUS 03/01/19 15:47:41 03/01/19 15:47:41 03/01/19 15:47:41 Entry 4 Entry 5 Case Attendee ALICIA HARDY ST WHITAKER, CARLY, AIRPLANE FIRST OFFICER Role Performed Scrub, First AIRPLANE FIRST OFFICER/Nurse Paid Search Specialist Time In 03/01/19 14:27:00 03/01/19 14:27:00 Time Out 03/01/19 15:47:00 03/01/19 15:47:00 Procedure Knee Arthroscopy Knee Arthroscopy Other Attendee Superficial Wound Closed By: Last Modified By: PANCHO SHAW, PANCHO RANDOLPH, PRECIOUS 03/01/19 15:47:41 03/01/19 15:47:41 [facility] IntraOp Case Attendance Audit 03/01/19 15:47:41 Zoo Director: LONGGA Modifier: LONGGA 1 <+> Time Out 1 <*> Procedure Knee Arthroscopy 2 <*> Procedure Knee Arthroscopy 3 <+> Time Out 3 <*> Procedure Knee Arthroscopy 4 <+> Time Out 4 <*> Procedure Knee Arthroscopy 5 <+> Time Out 5 <*> Procedure Knee Arthroscopy 03/01/19 15:07:05 Zoo Director: LONGGA Modifier: LONGGA <+> 1 Procedure 2 <*> Procedure Knee Arthroscopy 3 <*> Procedure Knee Arthroscopy 4 <*> Procedure Knee Arthroscopy 5 <*> Procedure Knee Arthroscopy 03/01/19 15:05:50 Zoo Director: LONGGA Modifier: LONGGA <+> 3 Case Attendee [...] [facility] IntraOp Case Times Audit 03/01/19 15:47:38 Zoo Director: LONGGA Modifier: LONGGA <+> 1 Out Room Time <+> 1 Stop Time 03/01/19 15:37:20 Zoo Director: LONGGA Modifier: LONGGA <+> 1 Stop Time 03/01/19 15:07:10 Zoo Director: LONGGA Modifier: LONGGA 1 <*> Start Time 03/01/19 15:03:00 03/01/19 15:06:48 Zoo Director: LONGGA Modifier: LONGGA <+> 1 Start Time S[facility] IntraOp Communication Entry 1 Communication To Family/Significant other Comment COMMUNICATION BOARD Date and Time 03/01/19 15:27:00 Last Modified By: PANCHO SHWA RN 03/01/19 15:27:23 SJE IntraOp Counts Verification [...] SJE IntraOp Counts Final Audit 03/01/19 15:37:45 Zoo Director: FARHAD Modifier: FARHAD 1 <*> Procedure Knee [...] IntraOp Fire Risk Assessment Audit 03/01/19 15:14:10 Zoo Director: FARHAD Modifier: LONGGA 1 <+> Fire Risk Assessment Complete 1 <*> Fire Risk Assessment Verified By Odette Lott RN 1 <+> Fire Risk Assessment Verified Date/Time 1 <+> High Risk Protocol Implemented SJE IntraOp General Case Sales Agent Casualty Insurance 1 Case Information OR OR 02 SJE [...] Other Implant NDL FAST FIX SYSTEM Identification [facility] [phone] Description Implant Quantity 2 Implant Site LEFT KNEE Implant [id number] Identification Lot Number Implant [employer]dez [employer] Nephew:Endo Identification Jump Iron Machine Presser Name: Implant [id number] Identification Catalog Number Implant Has an Yes [...] S[facility] IntraOp Intraoperative Assessment Audit 03/01/19 15:12:37 Zoo Director: FARHAD Modifier: LONGGA <+> 1 Patient is Latex [...] - Naropin 0.5% 30ml vial vial - [id number] - [id number] Combo Med List Time Administered Route of IRRIGANT LOCAL LOCAL Administration Dose Dose 3 5 5 Unit of Measure ml ml ml Volume Administered By LETICIA MART VASICEK, VERONICA A, VASICEK, VERONICA A, MD-ORT -ORT -ORT Procedure Irrigation Irrigant Volume In Irrigant Volume Out Last Modified By: PANCHO SHAW RN LONGSWORTH, GARY, RN LONGSWORTH, GARY, RN [...] SJE IntraOp Surgical Procedures Audit 03/01/19 15:37:21 Zoo Director: LONGGA Modifier: LONGGA <+> 1 Stop 03/01/19 15:19:49 Zoo Director: LONGGA Modifier: LONGGA 1 <*> Procedure Knee Arthroscopy 1 <*> Additional Procedure Description LEFT KNEE ARTHROSCOPY WITH MEDIAL MENISECTOMY 03/01/19 15:07:32 Zoo Director: LONGGA Modifier: LONGGA 1 <*> Procedure Knee [...] 15:56:44 SJE IntraOp Tourniquet Audit 03/01/19 15:56:44 Zoo Director: FARHAD Modifier: LONGGA <+> 1 Stop Time Case Comments <None> Finalized By: PANCHO SHAW RN Document Signatures Signed By: PANCHO SHAW RN 03/01/19 15:56 documented in this encounter Plan of Treatment Not on file documented as of this encounter Visit Diagnoses Not on filedocumented in this encounter
--- OUTSIDE RECORDS SUMMARY | 2025-10-31 09:23 | XMS_ITS | Encounter Summary ---
Author Organization [employer] ([place], [place], [place], [place], [place]) Address [address] [place] [address] Care Team Providers Care Hand Outside Cutter Name Role Phone Unavailable Primary Care Provider Unavailabl e Encounter Details Date Type Department Care Team (Late st Contact Info) Description 03/01/2019 Transcribed Document [facility] Radiology 1 [place] [address] Provider, Cristian Ashraf MD Social [...] Note - Cristian Alvarez MD - 03/01/2019 5:34 PM EDT [place] [address] [place] [address] AUBREY JUAN :1955 Visit Time:03/01/2019 [...] for swelling and pain. Prescriptions given for Galt 7.5/325 one tab by mouth every 4-6 hours as needed for pain. Discharge Follow Up Instructions: See discharge pre-printed BGO sheet. Prescriptions attached. Follow-Up Appointments Follow Up with LETICIA MART MD-ORT When 03/11/2019 11:00 AM EDT Where: [facility] [address] [place] [address]- Medications What How Much When Instructions Next [...] activities are safe for you. ??? Take qotc-ufh-hvdkidl and prescription medicines only as told by [...] 02/08/2002 Document Revised: 04/06/2017 Document Reviewed: 10/16/2016 [employer] Patient Education ?? 2017 [employer] Knee Arthroscopy, Care After Refer to [...] activities are safe for you. ??? Perform wnimz-wy-fqgtkr exercises only as directed by your health [...] 05/22/2006 Document Revised: 04/03/2017 Document Reviewed: 10/29/2015 [employer] Patient Education ?? 2017 [employer]. acetaminophen and hydrocodone (a SEET a MIN oh fen and kashif droe KOE done) Hycet, Lorcet, Galt, Verdrocet, Vicodin, Xodol, Zamicet What is the [...] may report side effects to FDA at 8-103-IYI-7658. What other drugs will affect acetaminophen and [...] affect acetaminophen and hydrocodone, including prescription and yeur-bow-dlokhwx medicines, vitamins, and herbal products. Not all [...] to ensure that the information provided by [employer]. ('[employer]') is accurate, up-to-date, and complete, but no guarantee is made to that effect. Drug information contained herein may be time sensitive. [employer] information has been compiled for use by healthcare practitioners and consumers in the [place] and therefore [employer] does not warrant that uses outside of the [place] are appropriate, unless specifically indicated otherwise. [employer] drug information does not endorse drugs, diagnose patients or recommend therapy. [employer] drug information is an informational resource designed [...] effective or appropriate for any given patient. [facility] does not assume any responsibility for any aspect of healthcare administered with the aid of information [employer] provides. The information contained herein is not intended to cover all possible uses, directions, precautions, warnings, drug interactions, allergic reactions, or adverse effects. If you have questions about the drugs you are taking, check with your doctor, nurse or pharmacist. Copyright 1174-8707 Daria [facility] HospitalOverture TechnologiesB[employer] Software. Version: 15.02. Revision Date: 09/20/2018. Emergency Awareness [...] Assistance with quitting is available by contacting 3-106-BOUI-NOW. This is a free resource providing counseling, [...] computer, smartphone, or tablet. Just go to [employer] to get started. Questions? Call . Test [...] range between ( 1.0 and 7.0 ) [place] #: 0.68 K/uL -- Normal range between ( 0.24 and 0.82 ) [place] #: 0.06 K/uL -- Normal range between ( 0.04 and 0.54 ) [place] %: 7.0 % -- Normal range between [...] ) Urine Bilirubin Dipstick: Negative Urine Specific [place]: 1.019 -- Normal range between ( 1.005 and 1.030 ) Urine Type.: U CleanCatch General Chemistry 02/01/19 11:01:00 Hgb A1C: 5.70 [...] 2 Vws: CR Chest 2 Vws Patient Name:AUBREY JUAN I have received this information and was given the opportunity to ask questions. Patient/Validation Analyst Name: Patient/Validation Analyst Signature: Relationship to Patient: Clinician/Hospital Validation Analyst Signature: Date: documented in this encounter Plan of Treatment Not on file documented as of this encounter Visit Diagnoses Not on filedocumented in this encounter
--- OUTSIDE RECORDS SUMMARY | 2025-10-31 09:23 | XMS_ITS | Encounter Summary ---
Author Organization [employer] ([place], [place], [place], [place], [place]) Address [address] [place] [address] Care Team Providers Care Elevating Grader Operator Name Role Phone Unavailable Primary Care Provider Unavailabl e Encounter Details Date Type Department Care Team (Late st Contact Info) Description 02/01/2019 Transcribed Document [facility] Radiology 1 [place] [address] Provider, Cristian Ashraf MD Social [...] Source : Stated Height Entry Format : Holt Height, Feet : 5 ft(Converted to: 152 cm, 60 Inch) Height, Inches : 8 Inch(Converted to: 0 ft 8 Inch, 20.32 cm) Clinical Height : 172.72 cm Weight Source : Standing scale Weight Entry Format : Holt Clinical Dosing Weight : 84.09 kg Weight, Pounds : 185 lb Body Surface Area (BSA) : 1.98 m2 Body Mass Index : 28.2 kg/m2 (HI) [place] Body Weight : 63 kg Maryan Slater [...] RN - 02/01/2019 11:09 EDT Spiritual/Cultural Needs Latter-Day Preference : Islam Maryan Slater RN - 02/01/2019 11:09 EDT [...] #2 Relationship : . Primary Language : Polish Communication Barrier : None Maryan Slater RN [...]
--- OUTSIDE RECORDS SUMMARY | 2025-10-31 09:23 | XMS_ITS | Encounter Summary ---
Author Organization [employer] ([place], [place], [place], [place], [place]) Address [address] [place] [address] Care Team Providers Care Snowboarder Name Role Phone Unavailable Primary Care Provider Unavailabl e Encounter Details Date Type Department Care Team (Late st Contact Info) Description 02/01/2019 Transcribed Document [facility] Radiology 1 [place] [address] Provider, Cristian Ashraf MD Social [...] Conversion Note - [facility] Pascale ProviderMD - 02/01/2019 12:47 [...]
--- OUTSIDE RECORDS SUMMARY | 2025-10-31 09:23 | XMS_ITS | Encounter Summary ---
Author Organization [email or web address] ([place], [place], [place], [place], [place]) Address [address] [place] [address] Care Team Providers Care Baller Tender Name Role Phone Unavailable Primary Care Provider Unavailabl e Encounter Details Date Type Department Care Team (Late st Contact Info) Description 03/01/2019 Transcribed Document [facility] Radiology 1 [place] [address] Provider, Cristian Ashraf MD Social [...] JUAN /Sex: 1955 Female Med Rec #: [id number] Physician: LETICIA MART MD-ORT Financial #: [id number] Pt. Type: O Room/Bed: [facility]/ Admit/Disch: 03/01/19 04:54:00 - Institution: [...]
[2025-10-31 09:30] VITALS: BP 123/74; PULSE 77; RESP 20; TEMP 36.4; O2SAT 98
[2025-10-31] MEDS: DENOSUMAB 60 MG/ML SYRINGE SUBCUT (09:30)
== END 2025-10-31 23:59 | disposition home or self-care (01) ==
LOC: INF 09:17
PROVIDERS: PCP Nurse Practitioner Family; Visit Provider Nurse Practitioner Family
DX: M81.0 Age-related osteoporosis without current pathological fracture (principal)
CPT/HCPCS: 96372; J0897

== ENCOUNTER 2025-11-06 10:46 | Outpatient (CLI) | payer MEDICARE, BC, SELFPAY ==
--- OUTSIDE RECORDS SUMMARY | 2025-11-06 10:52 | XMS_ITS | Encounter Summary ---
Author Organization [employer] ([place], [place], [place], [place], [place]) Address [address] [place] [address] Care Team Providers Care Lang Interpreter Name Role Phone Unavailable Primary Care Provider Unavailabl e Encounter Details Date Type Department Care Team (Late st Contact Info) Description 03/01/2019 Transcribed Document [facility] Radiology 1 [place] [address] Provider, Cristian Ashraf MD [...] JUAN /Sex: 1955 Female Med Rec #: [id number] Physician: LETICIA MART MD-ORT Financial #: [id number] Pt. Type: O Room/Bed: [facility]/6 Admit/Disch: 03/01/19 04:54:00 - Institution: [facility] [place] IntraOp Case Attendance Entry 1 Entry 2 Entry 3 Case Attendee LETICIA MART Gillenwater, Cheryl B, PANCHO SHAW, RN -ORT RN Role Performed Surgeon/Proceduralist, Bone Process Operator, First Bone Process Operator, Second First Time In 03/01/19 14:27:00 03/01/19 14:27:00 03/01/19 14:45:00 Time Out 03/01/19 15:47:00 03/01/19 14:49:00 03/01/19 15:47:00 Procedure Knee Arthroscopy Knee Arthroscopy Knee Arthroscopy Other Attendee Superficial Wound Closed By: Last Modified By: PANCHO SHAW, PANCHO RANDOLPH, RN PANCHO SHAW, PRECIOUS 03/01/19 15:47:41 03/01/19 15:47:41 03/01/19 15:47:41 Entry 4 Entry 5 Case Attendee ALICIA HARDY ST WHITAKER, CARLY, HUMAN SERVICES SUPERVISOR Role Performed Scrub, First HUMAN SERVICES SUPERVISOR/Nurse Roller Leveler Time In 03/01/19 14:27:00 03/01/19 14:27:00 Time Out 03/01/19 15:47:00 03/01/19 15:47:00 Procedure Knee Arthroscopy Knee Arthroscopy Other Attendee Superficial Wound Closed By: Last Modified By: PANCHO SHAW, PANCHO RANDOLPH, PRECIOUS 03/01/19 15:47:41 03/01/19 15:47:41 SJE IntraOp Case Attendance Audit 03/01/19 15:47:41 Lining Caser: LONGGA Modifier: LONGGA 1 <+> Time Out 1 <*> Procedure Knee Arthroscopy 2 <*> Procedure Knee Arthroscopy 3 <+> Time Out 3 <*> Procedure Knee Arthroscopy 4 <+> Time Out 4 <*> Procedure Knee Arthroscopy 5 <+> Time Out 5 <*> Procedure Knee Arthroscopy 03/01/19 15:07:05 Lining Caser: LONGGA Modifier: LONGGA <+> 1 Procedure 2 <*> Procedure Knee Arthroscopy 3 <*> Procedure Knee Arthroscopy 4 <*> Procedure Knee Arthroscopy 5 <*> Procedure Knee Arthroscopy 03/01/19 15:05:50 Lining Caser: LONGGA Modifier: LONGGA <+> 3 Case Attendee [...] SJE IntraOp Case Times Audit 03/01/19 15:47:38 Lining Caser: LONGGA Modifier: LONGGA <+> 1 Out Room Time <+> 1 Stop Time 03/01/19 15:37:20 Lining Caser: LONGGA Modifier: LONGGA <+> 1 Stop Time 03/01/19 15:07:10 Lining Caser: LONGGA Modifier: LONGGA 1 <*> Start Time 03/01/19 15:03:00 03/01/19 15:06:48 Lining Caser: LONGGA Modifier: LONGGA <+> 1 Start Time [...] SJE IntraOp Counts Final Audit 03/01/19 15:37:45 Lining Caser: FARHAD Modifier: FARHAD 1 <*> Procedure Knee [...] IntraOp Fire Risk Assessment Audit 03/01/19 15:14:10 Lining Caser: FARHAD Modifier: LONGGA 1 <+> Fire Risk Assessment Complete 1 <*> Fire Risk Assessment Verified By Odette Lott RN 1 <+> Fire Risk Assessment Verified Date/Time 1 <+> High Risk Protocol Implemented SJE IntraOp General Case Route Sales Manager 1 Case Information OR OR 02 SJE [...] Other Implant NDL FAST FIX SYSTEM Identification [facility] [phone] Description Implant Quantity 2 Implant Site LEFT KNEE Implant [id number] Identification Lot Number Implant Valdez [employer] Nephew:Endo Identification Sales Merchandising Specialist Name: Implant [id number] Identification Catalog Number Implant Has an Yes [...] SJE IntraOp Intraoperative Assessment Audit 03/01/19 15:12:37 Lining Caser: FARHAD Modifier: LONGGA <+> 1 Patient is [...] - Naropin 0.5% 30ml vial vial - [id number] - [id number] Combo Med List Time Administered Route of [...] CHONDROPLASTY Primary Procedure Yes Primary Surgeon LETICIA AMRT MD-ORT Start 03/01/19 15:03:00 Stop 03/01/19 15:31:00 Anesthesia Type General Specialty SN Orthopedic Wound Class I - Clean Last Modified By: PANCHO SHAW RN 03/01/19 15:37:21 SJE IntraOp Surgical Procedures Audit 03/01/19 15:37:21 Lining Caser: LONGGA Modifier: LONGGA <+> 1 Stop 03/01/19 15:19:49 Lining Caser: LONGGA Modifier: LONGGA 1 <*> Procedure Knee Arthroscopy 1 <*> Additional Procedure Description LEFT KNEE ARTHROSCOPY WITH MEDIAL MENISECTOMY 03/01/19 15:07:32 Lining Caser: LONGGA Modifier: LONGGA 1 <*> Procedure Knee [...] 15:56:44 SJE IntraOp Tourniquet Audit 03/01/19 15:56:44 Lining Caser: FARHAD Modifier: LONGGA <+> 1 Stop Time Case Comments <None> Finalized By: PANCHO SHAW RN Document Signatures Signed By: PANCHO SHAW RN 03/01/19 15:56 documented in this encounter Plan of Treatment Not on file documented as of this encounter Visit Diagnoses Not on filedocumented in this encounter
--- OUTSIDE RECORDS SUMMARY | 2025-11-06 10:52 | XMS_ITS | Encounter Summary ---
Author Organization [employer] ([place], [place], [place], [place], [place]) Address [address] [place] [address] Care Team Providers Care Surgical Consultant Name Role Phone Unavailable Primary Care Provider Unavailabl e Encounter Details Date Type Department Care Team (Late st Contact Info) Description 03/01/2019 Transcribed Document [facility] Radiology 1 [place] [address] Provider, Cristian Ashraf MD Social [...] - [facility] Pascale Alvarez MD - 03/01/2019 5:56 PM [...] EDT Electronically signed by Cristian Carreno Conversion Internal Communications Writer Cerner at 04/08/2023 8:02 PM CDT documented in this encounter Plan of Treatment Not on file documented as of this encounter Visit Diagnoses Not on filedocumented in this encounter
--- OUTSIDE RECORDS SUMMARY | 2025-11-06 10:52 | XMS_ITS | Referral Summary ---
Author Organization [employer] ([place], [place], [place], [place], [place]) Address [address] [place] [address] Care Team Providers Care Farmworker Brooder Farm Name Role Phone Unavailable Primary Care Provider [...]
--- OUTSIDE RECORDS SUMMARY | 2025-11-06 10:52 | XMS_ITS | Encounter Summary ---
Author Organization [employer] ([place], [place], [place], [place], [place]) Address [address] [place] [address] Care Team Providers Care Pulp Plant Supervisor Name Role Phone Unavailable Primary Care Provider Unavailabl e Encounter Details Date Type Department Care Team (Late st Contact Info) Description 03/01/2019 Transcribed Document [facility] Radiology [address] [place] [address] Provider, Cristian Ashraf MD Social [...] JUAN /Sex: 1955 Female Med Rec #: [id number] Physician: LETICIA MART MD-ORT Financial #: [id number] Pt. Type: O Room/Bed: [facility]/ Admit/Disch: 03/01/19 04:54:00 - Institution: [facility] Main OR PostOp Case Times Entry 1 [...]
--- OUTSIDE RECORDS SUMMARY | 2025-11-06 10:52 | XMS_ITS | Encounter Summary ---
Author Organization [employer] ([place], [place], [place], [place], [place]) Address [address] [place] [address] Care Team Providers Care Toxicologist Name Role Phone Unavailable Primary Care Provider Unavailabl e Encounter Details Date Type Department Care Team (Late st Contact Info) Description 03/01/2019 Transcribed Document [facility] Radiology [address] [place] [address] Provider, Cristian Ashraf MD Social [...] Source : Stated Height Entry Format : Ruffin Height, Feet : 5 ft(Converted to: 152 cm, 60 Inch) Height, Inches : 8 Inch(Converted to: 0 ft 8 Inch, 20.32 cm) Clinical Height : 172.72 cm Weight Source : Standing scale Weight Entry Format : Ruffin Clinical Dosing Weight : 81.36 kg Weight, Pounds : 179 lb Body Surface Area (BSA) : 1.95 m2 Body Mass Index : 27.3 kg/m2 (HI) [place] Body Weight : 63 kg Teressa Mejia Rn - 03/01/2019 11:29 EDT Health Histories Smoking Status : 5-9 cigarettes (between 1/4 to 1/2 pack)/day in last 30 days Smokeless Tobacco Status : Never Desires Tobacco Cessation Medication : No Reason for No Tobacco Cessation Medication : Refuses FDA approved medications Implant/Device Type, Supervisor Microfilm Duplicating Unit and Model : none Teressa Mejia Rn [...] Any Spiritual/Cultural Needs or Requests : No Baptist Preference : Mosque Teressa Mejia Rn - 03/01/2019 11:29 EDT [...] Obtained From : Patient Primary Language : Faroese Preferred Communication Mode : Verbal Communication Barrier [...] Scale Risk Level : 0-24 Low Risk [place] Fall Interventions : Adequate lighting, Non-slip footwear, [...]
--- OUTSIDE RECORDS SUMMARY | 2025-11-06 10:52 | XMS_ITS | Encounter Summary ---
Author Organization [employer] ([place], [place], [place], [place], [place]) Address [address] [place] [address] Care Team Providers Care Room Service Supervisor Name Role Phone Unavailable Primary Care Provider Unavailabl e Encounter Details Date Type Department Care Team (Late st Contact Info) Description 03/01/2019 Transcribed Document [facility] [address] [place] [address] Provider, Cristian Ashraf MD Social [...] Alvarez MD - 03/01/2019 5:34 PM EDT [place] [address] [place] [address] AUBREY JUAN :1955 Visit Time:03/01/2019 [...] for swelling and pain. Prescriptions given for Broadford 7.5/325 one tab by mouth every 4-6 hours as needed for pain. Discharge Follow Up Instructions: See discharge pre-printed BGO sheet. Prescriptions attached. Follow-Up Appointments Follow Up with LETICIA MART MD-ORT When 03/11/2019 11:00 AM EDT Where: [facility] [address] [place] [address]- Medications What How Much When Instructions Next [...] activities are safe for you. ??? Take scjh-npz-ufwukzp and prescription medicines only as told by [...] 02/08/2002 Document Revised: 04/06/2017 Document Reviewed: 10/16/2016 PerceptiMed Interactive Patient Education ?? 2017 [employer] Inc. Knee Arthroscopy, Care After Refer to [...] activities are safe for you. ??? Perform bmjmj-iv-yjmpzd exercises only as directed by your health [...] 05/22/2006 Document Revised: 04/03/2017 Document Reviewed: 10/29/2015 PerceptiMed Interactive Patient Education ?? 2017 [employer]. acetaminophen and hydrocodone (a SEET a MIN oh fen and kashif droe KOE done) Hycet, Lorcet, [place], Verdrocet, Vicodin, Xodol, Zamicet What is the [...] may report side effects to FDA at 8-780-JEM-5920. What other drugs will affect acetaminophen and [...] affect acetaminophen and hydrocodone, including prescription and sgcp-cor-fbmkeog medicines, vitamins, and herbal products. Not all [...] to ensure that the information provided by [employer] ('[employer]') is accurate, up-to-date, and complete, but no guarantee is made to that effect. Drug information contained herein may be time sensitive. [employer] information has been compiled for use by healthcare practitioners and consumers in the [place] and therefore [employer] does not warrant that uses outside of the [place] are appropriate, unless specifically indicated otherwise. [employer] drug information does not endorse drugs, diagnose patients or recommend therapy. [employer] drug information is an informational resource [...] effective or appropriate for any given patient. [facility] does not assume any responsibility for any aspect of healthcare administered with the aid of information [employer] provides. The information contained herein is not intended to cover all possible uses, directions, precautions, warnings, drug interactions, allergic reactions, or adverse effects. If you have questions about the drugs you are taking, check with your doctor, nurse or pharmacist. Copyright 1506-1199 [facility] Center[employer]. Version: 15.02. Revision Date: 09/20/2018. Emergency Awareness [...] Assistance with quitting is available by contacting 7-381-WUKW-NOW. This is a free resource providing counseling, [...] computer, smartphone, or tablet. Just go to TeamPages to get started. Questions? Call . Test [...] range between ( 1.0 and 7.0 ) [place] #: 0.68 K/uL -- Normal range between ( 0.24 and 0.82 ) [place] #: 0.06 K/uL -- Normal range between ( 0.04 and 0.54 ) [place] %: 7.0 % -- Normal range between [...] ) Urine Bilirubin Dipstick: Negative Urine Specific [place]: 1.019 -- Normal range between ( 1.005 [...] was given the opportunity to ask questions. Patient/Food Stylist Name: Patient/Food Stylist Signature: Relationship to Patient: Clinician/Hospital Food Stylist Signature: Date: documented in this encounter Plan of Treatment Not on file documented as of this encounter Visit Diagnoses Not on filedocumented in this encounter
--- OUTSIDE RECORDS SUMMARY | 2025-11-06 10:52 | XMS_ITS | Encounter Summary ---
Author Organization [employer] ([place], [place], [place], [place], [place]) Address [address] [place] [address] Care Team Providers Care Plumbing Engineer Name Role Phone Unavailable Primary Care Provider Unavailabl e Encounter Details Date Type Department Care Team (Late st Contact Info) Description 03/01/2019 Transcribed Document [facility] Radiology [address] [place] [address] Provider, Cristian Ashraf MD Social [...] M.D. Electronically signed by Cristian Carreno Conversion Developer Programmer Analyst Cerner at 04/08/2023 8:03 PM CDT documented in this encounter Plan of Treatment Not on file documented as of this encounter Visit Diagnoses Not on filedocumented in this encounter
--- OUTSIDE RECORDS SUMMARY | 2025-11-06 10:52 | XMS_ITS | Encounter Summary ---
Author Organization [employer] ([place], [place], [place], [place], [place]) Address [address] [place] [address] Care Team Providers Care Color Repairer Name Role Phone Unavailable Primary Care Provider Unavailabl e Encounter Details Date Type Department Care Team (Late st Contact Info) Description 02/01/2019 Transcribed Document [facility] Radiology [address] [place] [address] Provider, Cristian Ashraf MD Social [...] EDT Performed On: 02/01/2019 11:09 EDT by Marayn Slater RN Vital Measurements Temperature Source : [...] Source : Stated Height Entry Format : Kerr Height, Feet : 5 ft(Converted to: 152 cm, 60 Inch) Height, Inches : 8 Inch(Converted to: 0 ft 8 Inch, 20.32 cm) Clinical Height : 172.72 cm Weight Source : Standing scale Weight Entry Format : Kerr Clinical Dosing Weight : 84.09 kg Weight, Pounds : 185 lb Body Surface Area (BSA) : 1.98 m2 Body Mass Index : 28.2 kg/m2 (HI) [place] Body Weight : 63 kg Maryan Slater [...] RN - 02/01/2019 11:09 EDT Spiritual/Cultural Needs Mosque Preference : Buddhist Maryan Slater RN - 02/01/2019 11:09 EDT [...] #2 Relationship : . Primary Language : Yakut Communication Barrier : None Maryan Slater RN [...]
--- OUTSIDE RECORDS SUMMARY | 2025-11-06 10:52 | XMS_ITS | Encounter Summary ---
Author Organization [employer] ([place], [place], [place], [place], [place]) Address [address] [place] [address] Care Team Providers Care Potato Bucker Name Role Phone Unavailable Primary Care Provider Unavailabl e Encounter Details Date Type Department Care Team (Late st Contact Info) Description 03/01/2019 Transcribed Document [facility] Radiology [address] [place] [address] Provider, Cristian Ashraf MD Social [...] what activities are safe for you. EPerform osrol-gw-afwtdr exercises only as directed by your health [...] 05/22/2006 Document Revised: 04/03/2017 Document Reviewed: 10/29/2015 [employer] Interactive Patient Education ? 2017 [employer]. Pharmacology General Anesthesia, Adult, Care After These [...] what activities are safe for you. ETake paii-ide-nojvszt and prescription medicines only as told by [...] 10/16/2016 Elsevier Interactive Patient Education ? 2017 [employer] documented in this encounter Plan of Treatment Not on file documented as of this encounter Visit Diagnoses Not on filedocumented in this encounter
--- OUTSIDE RECORDS SUMMARY | 2025-11-06 10:52 | XMS_ITS | Clinical Summary ---
Author Organization [facility] Address [address] [place] [address] Care Team Providers Care Systems Test Analyst Name Role Phone Unavailable Primary Care [...] of the left 8:00 retroareolar region. COMPARISON: [facility] mammograms dated 06/03/2001, 08/16/2002, 01/07/2011, and [...] Radiologist- NICOLAS MENDEZ Released Date Time- 03/27/15 1146 Cyber Systems Engineer- LizzieEEllen us Benjamin Tinajero MD [facility] MAMMO[place]APHY ORDERABLES Mia kahlil Result from Last 3 Months or Most Recently Relevant to Health Maintenance
--- OUTSIDE RECORDS SUMMARY | 2025-11-06 10:52 | XMS_ITS | Encounter Summary ---
Author Organization [employer] ([place], [place], [place], [place], [place]) Address [address] [place] [address] Care Team Providers Care Data Conversion Developer Name Role Phone Unavailable Primary Care Provider Unavailabl e Encounter Details Date Type Department Care Team (Late st Contact Info) Description 02/01/2019 Transcribed Document [facility] Radiology [address] [place] [address] Provider, Cristian Ashraf MD Social [...] 13:21 Electronically signed by Ev, Cristian Conversion Landscape And Yardwork Laborer Cerner at 04/08/2023 8:03 PM CDT documented in this encounter Plan of Treatment Not on file documented as of this encounter Visit Diagnoses Not on filedocumented in this encounter
--- OUTSIDE RECORDS SUMMARY | 2025-11-06 10:52 | XMS_ITS | Encounter Summary ---
Author Organization [employer] ([place], [place], [place], [place], [place]) Address [address] [place] [address] Care Team Providers Care Flight Paramedic Name Role Phone Unavailable Primary Care Provider Unavailabl e Encounter Details Date Type Department Care Team (Late st Contact Info) Description 03/01/2019 Transcribed Document [facility] Radiology [address] [place] [address] Provider, Cristian Ashraf MD Social [...] JUAN /Sex: 1955 Female Med Rec #: [id number] Physician: LETICIA MART MD-ORT Financial #: [id number] Pt. Type: O Room/Bed: [facility]/6 Admit/Disch: 03/01/19 04:54:00 - Institution: [facility] PreOp Case Times Entry 1 In Preop 03/01/19 11:05:00 Ready for Holding n/a Room Patient Ready for 03/01/19 11:45:00 Surgery Patient Out of Preop 03/01/19 14:33:00 Patient Out of n/a Holding Room Last Modified By: NICOLE HEADLEY 03/01/19 15:14:12 [facility] PreOp Case Times Audit 03/01/19 15:14:12 Merchant Seaman: [id number] Modifier: [email or web address] <+> 1 Patient Out of Preop Finalized By: NICOLE HEADLEY Document Signatures Signed By: NICOLE HEADLEY 03/01/19 15:14 Electronically signed by Ev [facility] Conversion Shade Cloth Finisher Cerner at 04/08/2023 8:03 PM CDT documented in this encounter Plan of Treatment Not on file documented as of this encounter Visit Diagnoses Not on filedocumented in this encounter
--- OUTSIDE RECORDS SUMMARY | 2025-11-06 10:52 | XMS_ITS | Clinical Summary ---
Author Organization [employer] ([place], [place], [place], [place], [place]) Address [address] [place] [address] Care Team Providers Care Architectural Drafting Instructor Name Role Phone Unavailable Primary Care [...]
--- OUTSIDE RECORDS SUMMARY | 2025-11-06 10:52 | XMS_ITS | Encounter Summary ---
Author Organization [employer] ([place], [place], [place], [place], [place]) Address [address] [place] [address] Care Team Providers Care Acquisitions Analyst Name Role Phone Unavailable Primary Care Provider Unavailabl e Encounter Details Date Type Department Care Team (Late st Contact Info) Description 02/01/2019 Transcribed Document [facility] Radiology [address] [place] [address] Provider, Cristian Ashraf MD Social [...] Notes * Cerner Conversion Note - [facility] Pascale ProviderMD - 02/01/2019 12:47 PM [...]
--- NOTE | 2025-11-06 11:16 | NM_ITS ---
FINAL REPORT CLINICAL HISTORY: HYPERCALCEMIA 11:20AM 19.4 MCI TC SESTAMIBI COMPARISON: None FINDINGS: 19.4 mci Technetium Sestamibi was administered. Planar imaging was performed early and two-hour delayed of the neck and upper thorax. Early imaging shows physiologic uptake within the upper neck involving the salivary glands and lower neck involving the thyroid gland. On delayed imaging there is no abnormal retained activity in the lower neck or mediastinum to localize parathyroid adenoma. IMPRESSION: No scintigraphic evidence of parathyroid adenoma. Reviewed, Interpreted and Dictated by Pedro Franklin MD Transcribed by Belkys Garcia Authenticated and [facility]
[2025-11-06] MEDS: SODIUM CHLORIDE 0.9% 10ML SYR (RAD ONLY) 10 ML IV (13:31)
[2025-11-06] MEDS: ISO TC99M (SESTAMIBI);1 DOSE VIAL IV (13:31)
== END 2025-11-06 23:59 | disposition home or self-care (01) ==
LOC: RAD 10:47
PROVIDERS: PCP Nurse Practitioner Family; Visit Provider Nurse Practitioner Family
DX: E83.52 Hypercalcemia (principal); R74.8 Abnormal levels of other serum enzymes
CPT/HCPCS: 78070; A9500